=== PATIENT | male | born 1935 | race Caucasian/White ===

== ENCOUNTER 2021-03-09 11:15 | Emergency (ER) | payer OTHER, SELFPAY ==
[2021-03-09 11:29] VITALS: BP 215/65; PULSE 40; RESP 16; TEMP 37.1; O2SAT 97
--- NOTE | 2021-03-09 11:34 | ED.GENADULT ---
HPI - General Adult General Chief complaint: Back Pain/Injury Stated complaint: back pain Time Seen by Provider: 03/09/21 11:35 Source: patient, family (spouse) and RN notes reviewed Mode of arrival: ambulatory (with cane) Limitations: no limitations History of Present Illness HPI narrative: 85-year-old [place] male presents with spouse, both complaining of right lower back pain for the past 12 days. ?Gómez and spouse reported lifting heavy objects on 02/25/21 and now have constant RT lower back pain. ?Tylenol (2 tablets) with little relief. ?Denies falls. ?Radiating pain down the right leg. ?Denies numbness or tingling. ?Denies fever or chills. ?No upper or lower extremity pain or weakness. ?Exacerbating factors consist of certain movements, prolonged standing, and bending. Denies nausea, vomiting, or abdominal pain. ?Tolerating liquids well. Denies problems with urinating or having a bowel movement, LBM this morning per patient and normal. ?No flank pain, hematuria, or dysuria. ?The patient reports he has not been diagnosed with COVID-19. ?The patient reports he received 2 [employer] COVID-19 vaccines. ?The patient reports he is not waiting for the results of a COVID-19 lab test. ?The patient reports he does not have weakness, fatigue, or myalgia. ?The patient reports he does not have a new or worsening cough or shortness of breath. ?The patient reports he does not have any rhinorrhea, congestion, loss of taste, sore throat, and diarrhea. ?Denies recent traveling. Denies concerns for COVID-19 or exposures. ?At this time, the patient is not suspected of having COVID-19. Some parts of this dictation were generated by voice recognition software and may contain typographical and/or grammatical inaccuracies. Related Data Home Medications Medication Instructions Recorded Confirmed aspirin 81 mg tablet,delayed 81 mg PO DAILY 11/03/19 03/09/21 release lisinopril 60 mg PO DAILY 03/09/21 03/09/21 metoprolol succinate 25 mg PO DAILY 03/09/21 03/09/21 Allergies Allergy/AdvReac Type Severity Reaction Status Date / Time No Known Allergies Allergy Verified 03/13/21 06:39 Review of Systems Review of Systems: Narrative: CONSTITUTIONAL: Denies fever, chills, sweats. EYES: Denies visual changes, redness, discharge. ENT: Denies rhinorrhea, congestion, sore throat, otalgia. CARDIOVASCULAR: Denies chest pain, palpitations, edema. RESPIRATORY: Denies dyspnea, wheezing, cough. GASTROINTESTINAL: Denies abdominal pain, nausea, vomiting, diarrhea. GENITOURINARY: Denies dysuria, hematuria, abnormal discharge. SKIN: Denies rash or itching. MUSCULOSKELETAL: Complains of RT lower back pain. Denies joint pain or myalgia. NEUROLOGIC: Denies numbness or focal weakness. PSYCHIATRIC: Denies anxiety or depression. All systems reviewed & are unremarkable except as noted in HPI and below. [facility] Past Medical History Medical History (Updated 03/13/21 @ 06:36 by YOLA Polanco) Amputation of finger of left hand CAD (coronary artery disease) of artery bypass graft [place] (hard of hearing) wears hearing aids HTN (hypertension) Skin lesion Surgical History Surgical History (Updated 03/13/21 @ 06:36 by YOLA Polanco) History of surgical amputation of finger of left hand partial amputation of 2nd (index) finger Hx of CABG Family History Family History Mother Family history of pancreatic cancer Patient's mother is Family history of malignant neoplasm of ovary Father Acute myocardial infarction Sibling Family history of primary malignant neoplasm of liver Family history of malignant neoplasm of kidney Other Family history of malignant neoplasm Social History Social History (Updated 03/13/21 @ 06:37 by YOLA Polanco) Smoking status: Former smoker Tobacco type: cigarettes Second hand tobacco smoke exposure: No Smoking end date: 08/27/85 Alcohol
[2021-03-09 11:48] VITALS: BP 202/84; PULSE 58
[2021-03-09] MEDS: KETOROLAC (*BKC) 60 MG/2 ML VIAL IM (12:01)
[2021-03-09 12:27] VITALS: BP 198/80
== END 2021-03-09 12:27 | disposition home or self-care (01) ==
PROVIDERS: Emergency Provider Nurse Practitioner Family; PCP Emergency Medicine
DX: M54.5 Low back pain (principal); Z87.891 Personal history of nicotine dependence; I25.10 Atherosclerotic heart disease of native coronary artery without angina pectoris; I10 Essential (primary) hypertension; Z89.022 Acquired absence of left finger(s)
CPT/HCPCS: 96372; 99213; G0463; J1885

== ENCOUNTER 2021-03-13 06:30 | Emergency (ER) | payer OTHER, SELFPAY ==
[2021-03-13] VITALS (7 sets, daily range): BP systolic 121–159; BP diastolic 53–66; PULSE 46–66; RESP 15–19; TEMP 36.3; O2SAT 100
--- NOTE | 2021-03-13 07:22 | ED.GIBLEED ---
HPI - GI Bleed General Chief complaint: GI Bleed Stated complaint: Bloody stools Time Seen by Provider: 03/13/21 07:11 History of Present Illness HPI Narrative: Rectal bleeding since this morning. He initially passed 2 large loose stools containing some dark and some bright red blood. Since that time he has passed a small amount of bright red blood. He takes a daily aspirin and has been taking ibuprofen for back pain for the past few days. No pain, nausea, vomiting, dizziness, weakness, SOB, CP. He had a bleeding ulcer about 15 years ago. He reports that his symptoms were very different then. Related Data Home Medications Medication Instructions Recorded Confirmed aspirin 81 mg tablet,delayed 81 mg PO DAILY 11/03/19 03/09/21 release lisinopril 60 mg PO DAILY 03/09/21 03/09/21 metoprolol succinate 25 mg PO DAILY 03/09/21 03/09/21 Allergies Allergy/AdvReac Type Severity Reaction Status Date / Time No Known Allergies Allergy Verified 03/13/21 06:39 Review of Systems Review of Systems: All systems reviewed & are unremarkable except as noted in HPI and below Constitutional: Constitutional: Denies fever(s) ENT: Reports system reviewed and no additional complaints, except as documented Cardiovascular: Cardiovascular: Denies chest pain Respiratory: Respiratory: Denies dyspnea Genitourinary: Genitourinary: Reports no additional male genitourinary complaints Musculoskeletal: Musculoskeletal: Denies back pain Neurologic: Denies confusion, Denies dizziness and Denies weakness Hematologic/Lymphatic: Hematologic/Lymphatic: Denies easy bleeding and Denies easy bruising PMFSH Past Medical History Medical History Amputation of finger of left hand CAD (coronary artery disease) of artery bypass graft [place] (hard of hearing) wears hearing aids HTN (hypertension) Skin lesion Surgical History Surgical History History of surgical amputation of finger of left hand partial amputation of 2nd (index) finger Hx of CABG Family History Family History Mother Family history of pancreatic cancer Patient's mother is Family history of malignant neoplasm of ovary Father Acute myocardial infarction Sibling Family history of primary malignant neoplasm of liver Family history of malignant neoplasm of kidney Other Family history of malignant neoplasm Social History Social History Smoking status: Former smoker Tobacco type: cigarettes Second hand tobacco smoke exposure: No Smoking end date: 08/27/85 Alcohol intake: current Substance use: never Substance use type: does not use Living arrangements: with family Occupation/Education: retired Gender identity (if verbalized by the patient): Male Sexual Orientation (if Verbalized by the Patient): Straight or Heterosexual Exam Const: General: no acute distress Orientation/consciousness: patient oriented x3 HENMT: Head: normal to inspection Neck: Neck: normal visual inspection Resp: Effort & Inspection: normal respiratory effort Auscultation: clear to auscultation bilaterally, no rales, no rhonchi and no wheezes Cardio: Jugular venous distension: no JVD Rate: regular rate Rhythm: regular rhythm Heart sounds: no murmurs GI: Inspection: non-distended GI Palp: Yes Soft to palpation and No Tenderness to palpation present (GI) Skin: General skin exam: normal color Neuro: General: patient oriented x3 and moves all extremities Speech: normal speech Extrem: General: no edema Psych: Appearance: well kempt Affect: normal affect Course Vital Signs Vital signs: Vital Signs Temperature 36.3 C L 03/13/21 06:35 Pulse Rate 66 03/13/21 06:35 Respiratory Rate 19 03/13/21 06:35 Blood Pressure 145/66
[2021-03-13 07:48] LABS: Basophils Percent Auto 0.4 % (0.2-1.2); Eosinophils Percent Auto 0.2 % (0-4.4); Hematocrit 37.1 % (42.0-52.0); Hemoglobin 12.1 g/dL (14.0-18.0); Lymphocytes Percent Auto 23.2 % (18.3-44.2); Mean Corpuscular HGB Conc 32.6 g/dl (32-36); Mean Corpuscular Hemoglobin 31.8 pg (26-34); Mean Corpuscular Volume 97.4 fl (80-100); Neutrophils Absolute Auto 6.5 K/mm3 (1.3-6.7); Neutrophils Percent Auto 65.2 % (45.5-73.1); Platelet Count Result 209 k/mm3 (150-375); Red Blood Count 3.81 M/mm3 (4.6-6.20); Red Cell Distribution Width 14.3 % (11.5-14.5); White Blood Count 9.9 K/mm3 (4.5-10.0)
[2021-03-13 07:57] LABS: Alanine Aminotransferase 21 U/L (4-50); Albumin Level 4.5 g/dL (3.5-5.1); Alkaline Phosphatase 49 U/L (38-126); Anion Gap 7 mmol/L (8-16); Aspartate Amino Transferase 24 U/L (17-59); Bilirubin,Total 1.1 mg/dL (0.2-1.3); Blood Urea Nitrogen 59 mg/dL (9-20); Calcium 9.8 mg/dL (8.4-10.2); Carbon Dioxide 28 mmol/L (22-30); Chloride 108 mmol/L (98-107); Estimated CRCL calculation 56 ml/min; Estimated Glomerular Filt Rate > 60; Glucose 110 mg/dL (65-110); Potassium 4.8 mmol/L (3.4-5.0); Sodium 143 mmol/L (137-145)
[2021-03-13 07:58] LABS: INR 0.9; Prothrombin Time 12.1 Seconds (11.1-14.7)
[2021-03-13] MEDS: PANTOPRAZOLE SODIUM IV 40 MG VIAL IV PUSH (08:01)
[2021-03-13 08:05] LABS: Partial Thromboplastin Time < 20.0 SECONDS (22.3-36.8)
[2021-03-13 11:43] LABS: Hematocrit 33.7 % (42.0-52.0)
== END 2021-03-13 12:58 | disposition home or self-care (01) ==
PROVIDERS: Emergency Medicine; Emergency Provider Emergency Medicine; PCP Emergency Medicine
DX: K92.2 Gastrointestinal hemorrhage, unspecified (principal); I25.810 Atherosclerosis of coronary artery bypass graft(s) without angina pectoris; I10 Essential (primary) hypertension; Z89.022 Acquired absence of left finger(s); Z95.1 Presence of aortocoronary bypass graft; Z87.891 Personal history of nicotine dependence
CPT/HCPCS: 36415; 80053; 85014; 85018; 85025; 85610; 85730; 86850; 86900; 86901; 96374; 99284; C9113

== ENCOUNTER 2021-04-08 01:46 | Day surgery (SDC) | payer OTHER, SELFPAY ==
[2021-03-30 09:51] VITALS: BMI 31.8
--- NOTE | 2021-04-08 07:16 | P.HP_ITS ---
History of Present Illness History of Present Illness Consent: Risks, benefits, and alternatives have been discussed and questions answered. Patient agrees to proceed with procedure. Chief complaint: GI bleed Narrative: Gómez Rose is a 85 year old male because he has had recent black tarry stools after starting ibuprofen last week. He has a prior history of gastrointestinal bleeding about 15 years ago due to an ulcer Review of Systems Review of Systems: All systems reviewed & are unremarkable except as noted in HPI and below PMFSH Past Medical History Medical History Amputation of finger of left hand Black stools CAD (coronary artery disease) of artery bypass graft [place] (hard of hearing) wears hearing aids HTN (hypertension) Obese Skin lesion Surgical History Surgical History History of surgical amputation of finger of left hand partial amputation of 2nd (index) finger Hx of CABG Family History Family History Mother Family history of pancreatic cancer Patient's mother is Family history of malignant neoplasm of ovary Father Acute myocardial infarction Sibling Family history of primary malignant neoplasm of liver Family history of malignant neoplasm of kidney Other Family history of malignant neoplasm Social History Social History Smoking packs per day: 1 Smoking cigarettes per day: 20.0 Smoking status: Former smoker Tobacco type: cigarettes Second hand tobacco smoke exposure: No Smoking end date: 08/27/85 Alcohol intake: current Drinks per week: 10 Substance use: never Substance use type: does not use Living arrangements: with family Gender identity (if verbalized by the patient): Male Spiritual care concerns: No Meds Home Medications and Allergies Home Medications Medication Instructions Recorded Confirmed Type aspirin 81 mg tablet,delayed 81 mg PO DAILY 11/03/19 03/30/21 History release atorvastatin 80 mg tablet 80 mg PO DAILY #90 tablet 01/14/21 03/30/21 Rx lisinopril 60 mg PO BID 03/09/21 03/30/21 History metoprolol succinate 25 mg PO DAILY 03/09/21 03/30/21 History pantoprazole [Protonix] 40 mg PO BID #60 tablet 03/13/21 03/30/21 Rx Allergies Allergy/AdvReac Type Severity Reaction Status Date / Time No Known Allergies Allergy Verified 04/08/21 10:36 Exam Resp: Auscultation: clear to auscultation bilaterally Cardio: Rate: regular rate Rhythm: regular rhythm GI: GI Palp: Yes Soft to palpation and No Tenderness to palpation present (GI) Assessment and Plan Assessment and plan (1) Melena: Code(s): K92.1 - Melena Status: Acute Assessment and Plan: EGD with possible biopsy or dilatation or cautery.
[2021-04-08 10:38] VITALS: BP 185/53; PULSE 45; RESP 16; TEMP 35.9; O2SAT 96
--- NOTE | 2021-04-08 10:44 | SUR.PREOP ---
DR RAIN NOTIFIED OF HR OF 44, NO NEW ORDERS
--- NOTE | 2021-04-08 10:47 | P.PNAN_ITS ---
Anes - Initial Pre Proc Eval Procedure: Operation Date: 04/08/21 11:30 Proposed Procedures p Esophagogastroduodenoscopy - Edd Beard MD Date/Time: 04/08/21 10:47 Surgeon: Edd Beard MD Pre Op Diagnosis: GI bleed Patient Data Age: 85 Gender: M Height: 1.75 m Weight: 96.3 kg Last Vital Signs Temp 35.9 C L 04/08/21 10:38 Pulse 45 L 04/08/21 10:38 Resp 16 04/08/21 10:38 BP 185/53 H 04/08/21 10:38 Pulse Ox 96 04/08/21 10:38 Allergies Allergy/AdvReac Type Severity Reaction Status Date / Time No Known Allergies Allergy Verified 04/08/21 10:36 Home Medications Medication Instructions Recorded Confirmed Type aspirin 81 mg tablet,delayed 81 mg PO DAILY 11/03/19 03/30/21 History release atorvastatin 80 mg tablet 80 mg PO DAILY #90 tablet 01/14/21 03/30/21 Rx lisinopril 60 mg PO BID 03/09/21 03/30/21 History metoprolol succinate 25 mg PO DAILY 03/09/21 03/30/21 History pantoprazole [Protonix] 40 mg PO BID #60 tablet 03/13/21 03/30/21 Rx Patient hx anesthesia problems: none Family hx anesthesia problems: none PMFSH Past Medical History Medical History Amputation of finger of left hand Black stools CAD (coronary artery disease) of artery bypass graft [place] (hard of hearing) wears hearing aids HTN (hypertension) Obese Skin lesion Surgical History Surgical History History of surgical amputation of finger of left hand partial amputation of 2nd (index) finger Hx of CABG Family History Family History Mother Family history of pancreatic cancer Patient's mother is Family history of malignant neoplasm of ovary Father Acute myocardial infarction Sibling Family history of primary malignant neoplasm of liver Family history of malignant neoplasm of kidney Other Family history of malignant neoplasm Social History Social History Smoking packs per day: 1 Smoking cigarettes per day: 20.0 Smoking status: Former smoker Tobacco type: cigarettes Second hand tobacco smoke exposure: No Smoking end date: 08/27/85 Alcohol intake: current Drinks per week: 10 Substance use: never Substance use type: does not use Living arrangements: with family Gender identity (if verbalized by the patient): Male Spiritual care concerns: No Anes - Eval Final PreProcedure Day of Procedure 04/08/21 10:47 Patient weight: obese Heart: regular rate and rhythm Lungs: decreased breath sounds Airway: Mallampati scale class II Neurological: alert and oriented Last oral intake: >/= 8 hours ASA classification: III Emergent: no Anesthetic plan: proceed Anesthesia type and monitoring: general GIVS and standard monitoring Informed Consent: The patient's anesthetic plan and its attendant risks and benefits were discussed with the patient/family/POA. Questions were solicited and answers provided to the satisfaction of the patient/family/POA.
[2021-04-08] MEDS: LACTATED RINGERS 1,000 ML 150 ML IV CONT (11:03)
[2021-04-08] MEDS: SIMETHICONE ORAL SUSPENSION 20 MG/0.3 ML 30 ML BOTTLE 0.6 ML IRRIGATION (11:39)
[2021-04-08 11:43] VITALS: BP 137/57; PULSE 46; RESP 15; O2SAT 98
[2021-04-08 11:53] VITALS: BP 162/68; PULSE 45; RESP 14; O2SAT 95
[2021-04-08 12:03] VITALS: BP 180/71; PULSE 48; RESP 15; O2SAT 100
== END 2021-04-08 12:25 | disposition home or self-care (01) ==
PROVIDERS: PCP Emergency Medicine; Visit Provider Internal Medicine Gastroenterology
PROC: 0DJ08ZZ Inspection of Upper Intestinal Tract, Via Natural or Artificial Opening Endoscopic (ICD-10-PCS; CPT 43235; principal; 2021-04-08 11:30)
DX: K92.1 Melena (principal); K29.70 Gastritis, unspecified, without bleeding; I25.810 Atherosclerosis of coronary artery bypass graft(s) without angina pectoris; I10 Essential (primary) hypertension; E66.9 Obesity, unspecified; H91.90 Unspecified hearing loss, unspecified ear; Z89.022 Acquired absence of left finger(s); Z87.891 Personal history of nicotine dependence
CPT/HCPCS: 43235; J7120

== ENCOUNTER 2021-05-18 10:15 | Outpatient (RCR) | payer OTHER, SELFPAY ==
--- NOTE | 2021-04-27 09:50 | PTOPEVAL ---
PHYSICAL THERAPY EVALUATION AND PLAN OF CARE Thank you for referring G[facility]mez Rose to [facility].? The patient is scheduled to be seen for therapy?1x/week for 5 weeks. Please review, sign, date and return this plan of care MANPREET. I agree with and certify that the following plan of care is medically necessary. Referring Physician Date Attending Provider: Zeferino Ortiz MD Evaluation Outpatient Past Medical History Neurological History Hx Neurological Disorders No Significant History Cardiovascular History Hx Coronary Artery Bypass Graft Yes: CABG x 3 Hx Coronary Artery Disease Yes Hx Hypercholesterolemia Yes Hx Hypertension Yes Respiratory History Hx Respiratory Disorders No Significant History Gastrointestinal History Hx Gastrointestinal Bleed Yes: 03/13/2021 Hx Hemorrhoids Yes Hx Polyps Yes: colon polyps Hx Ulcer Yes: hx bleeding ulcer Genitourinary History Hx Genitourinary Disorders No Significant History Musculoskeletal History Hx Arthritis Yes: back Hx Back Pain Yes Hx Fractures Yes: foot fracture Hx Orthopedic Surgery Yes: bilateral knee arthroscopies Hematological History Hx Anemia Yes Hx Blood Transfusions Yes Endocrine History Hx Endocrine Disorders No Significant History HEENT History Hx Other HEENT Disorders Yes: [place] Integumentary History Hx Excision Skin Lesion Yes: LT HAND SKIN CANCER Hx Shingles Yes Reproductive History Hx Reproductive Disorders No Significant History Psychosocial History Hx Psychiatric Disorders No Significant History Pain History History of Any Previous or Ongoing No Significant History Instance of Pain Anesthesia History Hx Anesthesia Reactions No Significant History Diagnosis right hip pain Onset 6 weeks Subjective Information Eloy is present for Query Text:As Reported By Patient/ evaluation to help because Family Gómez's hearing aides broke. Pain kind of starts in the low back and goes into both hips, right side worse. Did have some symptoms go down the legs . States today that it bothers him most when he gets up in the morning. Started using a cane when this pain started - helped him to feel more steady . Both standing still and walking increase pain, but
--- NOTE | 2021-06-01 16:48 | PCPTNOTE ---
Patient called & cancelled scheduled appointment on 06/01
--- NOTE | 2021-06-14 14:36 | PCPTNOTE ---
PHYSICAL THERAPY DISCHARGE NOTE Attending Provider: Zeferino Ortiz MD Patient:Gómez Rose Date of :1935 Patient has not returned for any further treatments since 05/18/2021, therefore will be discharged at this time. Patient?s initial visit was on 04/27/2021. He called and cancelled his last two appointments because he was getting an MRI and was going to reach out if he needed further therapy. We have not heard from him. Thank you for referring Gómez to [facility]. Please review, sign, date and return this discharge summary MANPREET. I have been updated about the patient's current status and I agree with discharge from the above service at this time. Referring Physician Date
== END 2021-06-15 08:51 | disposition home or self-care (01) ==
LOC: ANHPT 10:15
PROVIDERS: PCP Emergency Medicine; Visit Provider Orthopaedic Surgery
DX: M25.551 Pain in right hip (principal)
CPT/HCPCS: 97110; 97140; 97162

== ENCOUNTER 2021-06-03 14:35 | Outpatient (CLI) | payer OTHER, SELFPAY ==
--- NOTE | ~2021-06-03 | MR_ITS ---
EXAMINATION: MR lumbar spine wo con DATE: 06/03/2021 15:32 INDICATION: Low back pain. TECHNIQUE: Magnetic resonance imaging (MRI) of the lumbar spine was performed without intravenous con trast. Sequences included sagittal T2-weighted FSE, sagittal STIR FSE, sagittal T2-weighted FS FSE, s agittal T1-weighted FSE, and axial T2-weighted FSE. COMPARISON: None FINDINGS: Bone alignment is normal. Vertebral body heights and intervertebral disc heights are normal . The distal spinal cord signal intensity is normal. The conus medullaris is at T12. The following di sc levels are specifically discussed: L1-L2: The disc does not extend beyond the endplate margin. There is mild bilateral facet joint osteo arthritis. There is no neural foraminal stenosis. There is no central canal stenosis. L2-L3: The disc is bulging. There is mild bilateral facet joint osteoarthritis. There is moderate mica ateral neural foraminal stenosis. There is mild central canal stenosis. L3-L4: The disc is bulging. There is moderate bilateral facet joint osteoarthritis. There is moderate bilateral neural foraminal stenosis. There is mild central canal stenosis. L4-L5: The disc is bulging and has an annular fissure. There is severe bilateral facet joint osteoart hritis. There is an 8 mm synovial cyst from right facet joint. There is moderate bilateral neural for aminal stenosis. There is severe central canal stenosis. L5-S1: The disc is bulging and has an annular fissure. There is mild bilateral facet joint osteoarthr itis. There is mild bilateral neural foraminal stenosis. There is mild central canal stenosis. IMPRESSION: 1. Severe central canal stenosis at L4-L5. Otherwise moderate lumbar spondylosis. Reviewed, dictated and finalized at location A. IMPRESSION: 1. Severe central canal stenosis at L4-L5. Otherwise moderate lumbar spondylosi s.
== END 2021-06-03 14:36 | disposition home or self-care (01) ==
PROVIDERS: PCP Emergency Medicine; Visit Provider Orthopaedic Surgery
DX: M54.50 Low back pain, unspecified (principal); M48.061 Spinal stenosis, lumbar region without neurogenic claudication; M47.816 Spondylosis without myelopathy or radiculopathy, lumbar region
CPT/HCPCS: 72148

== ENCOUNTER 2022-08-08 14:38 | Outpatient (CLI) | payer OTHER, SELFPAY ==
--- NOTE | ~2022-08-08 | XR_ITS ---
Lumbosacral Spine: AP and lateral views Clinical History: Lumbar radiculopathy The normal lordotic curve is maintained. The vertebral bodies and posterior elements are intact. Th e intervertebral disc spaces are preserved. Facet joint degenerative change present at L4-L5 and L5-S 1. The sacroiliac joints are normally outlined. Impression: Facet joint degenerative change at the lower lumbar spine, as detailed above. Reviewed, dictated and finalized at location [] [employer] OPERATOR HEAD Impression: Facet joint degenerative change at the lower lumbar spine, as detailed above.
== END 2022-08-08 14:39 | disposition home or self-care (01) ==
PROVIDERS: PCP Emergency Medicine
DX: M54.17 Radiculopathy, lumbosacral region (principal)
CPT/HCPCS: 72100

== ENCOUNTER 2022-10-10 09:18 | Outpatient (CLI) | payer OTHER, SELFPAY ==
--- NOTE | 2022-10-10 09:45 | ECHO_ITS ---
Patient Info Name: Gmóez Rose Age: 87 years : 1935 Gender: Male Ht: 68 in Wt: 200 lbs BSA: 2.11 m2 HR: 50 bpm BP: 152 / 73 mmHg Heart Rhythm: Sinus Rhythm Technical Quality: Fair Exam Date: 10/10/2022 9:48 AM Exam Location: [facility] Patient Status: Outpatient Admit Date: 10/10/2022 Staff Ordering Physician: Polo Vasquez MD Actuarial Science Professor: Nedra Canchola RDCS Attending Provider: Polo Vasquez MD Referring Physician: Pedro ROBERT; Exam Type: CA echo doppler color flow Study Info Indications R01.1 - Cardiac murmur, unspecified Complete two-dimensional, color flow and Doppler transthoracic echocardiogram is performed. Summary 1. Complete two-dimensional, color flow and Doppler transthoracic echocardiogram is performed. 2. Left ventricular chamber dimension is normal. 3. Left ventricular systolic function is normal, estimated at 50-55%. 4. There is mildly increased left ventricular wall thickness. 5. The left ventricular diastolic function is grade I diastolic dysfunction. 6. Global longitudinal strain is abnormal at -14 %. 7. Right ventricular chamber dimension is normal. 8. Right ventricular systolic function is normal. 9. There is mild aortic valve calcification. 10. The mitral valve annulus is mildly calcified. 11. There is mild mitral valve regurgitation. 12. There is mild to moderate tricuspid valve regurgitation. Left Ventricle Left ventricular chamber dimension is normal. Left ventricular systolic function is normal, estimated at 50-55%. There is mildly increased left ventricular wall thickness. The left ventricular diastolic function is grade I diastolic dysfunction. Global longitudinal strain is abnormal at -14 %. Right Ventricle Right ventricular chamber dimension is normal. Right ventricular systolic function is normal. Left Atria Left atrial chamber dimension is normal. Right Atria Right atrial chamber dimension is normal. Atrial Septum Intact interatrial septum visualized by color flow imaging. Aortic Valve The aortic valve is trileaflet. There is no aortic valve stenosis. There is no aortic valve regurgitation. There is mild aortic valve calcification. Pulmonic Valve The pulmonic valve is normal. There is no pulmonic regurgitation. Mitral Valve The mitral valve has normal leaflets. There is no mitral valve stenosis. There is mild mitral valve regurgitation. The mitral valve annulus is mildly calcified. Tricuspid Valve The tricuspid valve leaflets are normal. There is no significant tricuspid valve stenosis. There is mild to moderate tricuspid valve regurgitation. Pericardium/Pleural The pericardium appears normal. Inferior Vena Cava Normal inferior vena cava with >50% collapse upon inspiration consistent with normal right atrial pressure, 3 mmHg. Aorta The aortic root size at the sinus of Valsalva is normal. Left Ventricular Outflow Tract Name Value Normal LVOT 2D LVOT Diameter 1.9 cm LVOT Doppler LVOT Peak Gradient 4 mmHg LVOT Mean Gradient 3 mmHg
== END 2022-10-10 09:19 | disposition home or self-care (01) ==
PROVIDERS: PCP Emergency Medicine; Visit Provider Emergency Medicine
DX: R01.1 Cardiac murmur, unspecified (principal); R60.9 Edema, unspecified; I36.1 Nonrheumatic tricuspid (valve) insufficiency; I34.0 Nonrheumatic mitral (valve) insufficiency; I35.1 Nonrheumatic aortic (valve) insufficiency
CPT/HCPCS: 93306

== ENCOUNTER 2023-06-20 01:20 | Emergency (ER) | payer OTHER, SELFPAY ==
--- NOTE | ~2023-06-20 | XR_ITS ---
Clinical Indication: Chest pain PA and lateral views of the chest: Comparison: 01/24/2019 Findings: The lungs are clear, without evidence of focal consolidation or pleural effusion. Cardiome diastinal silhouette is stable, status post probable CABG. Bones and soft tissues are unremarkable. Impression: Clear lungs. Reviewed, dictated and finalized at location . Impression: Clear lungs.
--- NOTE | ~2023-06-20 | CT_ITS ---
Clinical Indication: Chest pain CT Scan of the Chest with Contrast: Technique: Contiguous sections were acquired throughout the chest after intravenous administration of 100 cc of Omnipaque 350. Dose reduction technique was used on this scan by utilizing automated expos ure control and iterative reconstruction technique. The dose-length product (DLP) was 745.79 mGy-cm. Findings: There is no evidence of any significant mediastinal, hilar or axillary lymphadenopathy. There is no f illing defect in the pulmonary arterial tree to suggest pulmonary embolus. There is no evidence of ao rtic dissection or aneurysm. There is no evidence of pleural or pericardial effusion. The lungs are clear, aside from calcified left lower lobe granulomas. Images through the upper abdomen reveal no abnormalities. There is DISH of the thoracic spine. Impression: No evidence of pulmonary embolus, aortic dissection, or aortic aneurysm. Calcified left lower lobe granulomas, otherwise clear lungs. Reviewed, dictated and finalized at [facility]. Impression: No evidence of pulmonary embolus, aortic dissection, or aortic aneurysm. Calcified left lower lobe granulomas, otherwise clear lungs.
[2023-06-20 01:28] VITALS: PULSE 57
[2023-06-20 01:30] VITALS: BP 150/67; PULSE 51; RESP 15; O2SAT 97
--- NOTE | 2023-06-20 01:33 | ECG_ITS ---
Measurements Intervals [place] Rate: 64 P: -4 OR: 160 QRS: -7 QRSD: 102 T: 76 QT: 447 QTc: 464 Interpretive Statements SINUS RHYTHM WITH OCCASIONAL VENTRICULAR PREMATURE COMPLEXES NONSPECIFIC ST & T-WAVE ABNORMALITY COMPARED TO ECG 01/24/2019 09:47:36 SINUS RHYTHM NOW PRESENT T-WAVE ABNORMALITY NOW PRESENT Electronically Signed On 06-20-2023 11:19:31 CDT by Vivian Carvajal M.D.
[2023-06-20 01:52] LABS: Basophils Percent Auto 0.4 % (0.2-1.2); Eosinophils Absolute Auto 0.2 K/mm3 (0-0.3); Eosinophils Percent Auto 2.2 % (0-4.4); Hematocrit 42.8 % (42.0-52.0); Immature Granulocyte Absolute 0.06 K/mm3 (0.00-0.031); Immature Granulocyte Percent A 0.6 % (0-0.5); Lymphocytes Absolute Auto 2.85 K/mm3 (0.9-3.2); Mean Corpuscular HGB Conc 32.7 g/dl (32-36); Mean Corpuscular Hemoglobin 32.1 pg (26-34); Mean Corpuscular Volume 98.2 fl (80-100); Mean Platelet Volume 9.8 fl (7.4-10.4); Monocytes Absolute Auto 0.7 K/mm3 (0.1-0.6); Monocytes Percent Auto 6.8 % (2.6-8.5); Neutrophils Absolute Auto 6.7 K/mm3 (1.3-6.7); Platelet Count Result 204 k/mm3 (150-375); Red Blood Count 4.36 M/mm3 (4.6-6.20); Red Cell Distribution Width 13.2 % (11.5-14.5); White Blood Count 10.6 K/mm3 (4.5-10.0)
[2023-06-20 02:07] LABS: Alanine Aminotransferase 25 U/L (6-50); Albumin Level 4.3 g/dL (3.5-5.1); Alkaline Phosphatase 90 U/L (38-126); Anion Gap 7 mmol/L (8-16); Aspartate Amino Transferase 34 U/L (17-59); Bilirubin,Total 1.1 mg/dL (0.2-1.3); Blood Urea Nitrogen 25 mg/dL (9-20); Calcium 9.3 mg/dL (8.4-10.2); Carbon Dioxide 29 mmol/L (22-30); Chloride 101 mmol/L (98-107); Estimated CRCL calculation 42 ml/min; Estimated Glomerular Filt Rate > 60; Glucose 125 mg/dL (65-110); Lipase 207 U/L (23-300); Potassium 3.8 mmol/L (3.4-5.0); Sodium 137 mmol/L (137-145)
[2023-06-20 02:16] LABS: INR 0.9; Prothrombin Time 12.3 Seconds (11.1-14.7)
[2023-06-20 02:17] LABS: Partial Thromboplastin Time 23.9 SECONDS (22.3-36.8)
[2023-06-20 02:18] LABS: Troponin I < 0.012 ng/mL (0.000-0.034)
[2023-06-20 02:42] VITALS: BP 164/61; PULSE 62; RESP 18; O2SAT 95
[2023-06-20 03:06] LABS: D Dimer 0.67 ug/mL (<0.48)
[2023-06-20 03:08] LABS: NT Pro B Type Natriuretic Pept 273 pg/mL (19.9-100)
--- NOTE | 2023-06-20 03:13 | ED.GENADULT ---
HPI - General Adult General Chief complaint: Chest Pain Stated complaint: chest pain Time Seen by Provider: 06/20/23 01:35 History of Present Illness HPI narrative: Patient is a 88-year-old gentleman who presents the emergency department with chief complaint of chest pain. Patient reports this evening started having pain in the right side of his chest patient reports pain is worse with inspiration and improved with rest. Related Data Home Medications Medication Instructions Recorded Confirmed aspirin 81 mg tablet,delayed 81 mg PO DAILY 11/03/19 12/21/21 release Allergies Allergy/AdvReac Type Severity Reaction Status Date / Time No Known Allergies Allergy Verified 12/27/22 09:13 Review of Systems Review of Systems: A 10 system review of systems was completed on the patient and is negative except for what is stated in the HPI. Nursing and ancillary documentation was reviewed. [facility], [facility] Past Medical History Medical History Amputation of finger of left hand Black stools CAD (coronary artery disease) of artery bypass graft [place] (hard of hearing) wears hearing aids HTN (hypertension) Obese Skin lesion Surgical History Surgical History History of surgical amputation of finger of left hand partial amputation of 2nd (index) finger Hx of CABG Family History Family History Mother Family history of pancreatic cancer Patient's mother is Family history of malignant neoplasm of ovary Father Acute myocardial infarction Sibling Family history of primary malignant neoplasm of liver Family history of malignant neoplasm of kidney Other Family history of malignant neoplasm Social History Social History Smoking packs per day: 1 Smoking cigarettes per day: 20.0 Smoking status: Former smoker Tobacco type: cigarettes Second hand tobacco smoke exposure: No Smoking end date: 08/27/85 Alcohol intake: current Drinks per week: 10 Substance use: never Substance use type: does not use Lack of Transportation: No Lack of Food: Never True Current Housing: Decline to Answer Concerned About Future Housing: No Difficulty Paying Gas/Electric Bills: No Difficulty Paying for Meds: No Currently Unemployed: No Education: High School Diploma/GED Difficulty w/ Childcare or Family Care: No Living arrangements: with family Occupation/Education: retired Gender identity (if verbalized by the patient): Male Sexual Orientation (if Verbalized by the Patient): Straight or Heterosexual Spiritual care concerns: No Exam Narrative: GENERAL: Well-appearing, well-nourished, and in no acute distress. HEAD: Normocephalic, atraumatic. EYES: PERRLA and EOMI. ENT: Nares clear, no rhinorrhea or epistaxis. Mucous membranes moist. NECK: Supple. CHEST: Clear to auscultation. No respiratory distress. Chest wall is tender to palpation of the right chest HEART: Regular rate and rhythm. No murmur heard. Normal peripheral pulses. ABDOMEN: Soft, nontender, nondistended, normal active bowel sounds. EXTREMITIES: Normal range of motion. No edema. SKIN: Warm, dry, no rash. NEURO: No focal deficits. Alert and oriented x3. PSYCH: Normal mood and affect. Course Vital Signs Vital signs: Vital Signs Pulse Rate 57 L 06/20/23 01:28 Pulse Rate 54 L 06/20/23 04:35 Respiratory Rate 18 06/20/23 02:42 Blood Pressure 151/69 H 06/20/23 04:35 Pulse Oximetry 98 06/20/23 04:35 Medical Decision Making [facility] Narrative Medical decision making narrative: Differential diagnosis includes ACS, pulmonary embolism, CHF Laboratory studies were obtained on the patient which showed a negative troponin for both 0-hour and 3-hour D
[2023-06-20 04:35] VITALS: BP 151/69; PULSE 54; O2SAT 98
[2023-06-20 05:15] LABS: Troponin I < 0.012 ng/mL (0.000-0.034)
[2023-06-20 06:25] VITALS: BP 130/74; PULSE 90; RESP 12; O2SAT 99
== END 2023-06-20 06:25 | disposition home or self-care (01) ==
PROVIDERS: Emergency Provider Emergency Medicine; PCP Emergency Medicine
DX: R07.89 Other chest pain (principal); I25.10 Atherosclerotic heart disease of native coronary artery without angina pectoris; I10 Essential (primary) hypertension; Z95.1 Presence of aortocoronary bypass graft; Z89.022 Acquired absence of left finger(s); Z87.891 Personal history of nicotine dependence; I49.3 Ventricular premature depolarization; R94.31 Abnormal electrocardiogram [ECG] [EKG]
CPT/HCPCS: 36415; 71046; 71275; 80053; 83690; 83880; 84484; 85025; 85380; 85610; 85730; 93005; 99284; Q9967

== ENCOUNTER 2023-10-16 07:21 | Outpatient (CLI) | payer OTHER, SELFPAY ==
--- NOTE | ~2023-10-16 | CT_ITS ---
EXAMINATION: CT abdomen pelvis wo/w con DATE: 10/16/2023 08:08 INDICATION: Gross hematuria TECHNIQUE: Computed tomography (CT) of the abdomen and pelvis was performed without intravenous contr ast. CT of the abdomen and pelvis was then performed with a total of 130 mL Omnipaque 350 intravenous contrast using a double-bolus technique for simultaneous opacification of the renal parenchyma and r enal collecting system. The dose-length product (DLP) was 2002.97 mGy-cm. Automated exposure control and iterative reconstruction technique were employed. COMPARISON: None FINDINGS: Minimal dependent atelectasis is present in the lung bases. The heart size is normal. Punct ate calcifications in an otherwise normal spleen likely represent healed granulomatous disease. The l iver, pancreas, gallbladder, and adrenal glands are normal. The kidneys are unremarkable. No stones a re identified in the kidneys, ureters, or bladder. No hydronephrosis or hydroureter. There is right p osterolateral bladder wall thickening. No suspicious renal lesion is identified. There is a 1.4 cm le ft obturator lymph node. No free intraperitoneal gas or evidence of bowel obstruction. The appendix i s normal. There is calcified atherosclerosis of the aorta and many of the other arteries. There is mi ld lumbar spondylosis. IMPRESSION: 1. Right posterolateral bladder wall thickening which could reflect urothelial lesion. Direct visuali zation is recommended. 2. Enlarged left obturator lymph node of unclear etiology, reactive versus metastatic disease. Reviewed, dictated and finalized at location [facility] IMPRESSION: 1. Right posterolateral bladder wall thickening which could reflect urothelial lesion. Direct visualization is recommended. 2. Enlarged left obturator lymph node of unclear etiology, reactive versus meta static disease.
[2023-10-16 07:47] LABS: Estimated Glomerular Filt Rate > 60
== END 2023-10-16 07:22 | disposition home or self-care (01) ==
LOC: ANHIMG 07:26
PROVIDERS: PCP Emergency Medicine; Visit Provider Physician Assistant
DX: R31.0 Gross hematuria (principal)
CPT/HCPCS: 74178; Q9967

== ENCOUNTER 2023-10-20 08:47 | Observation (INO) | payer OTHER, SELFPAY ==
[2023-10-20] VITALS (9 sets, daily range): BP systolic 123–188; BP diastolic 56–104; PULSE 53–77; RESP 16–21; TEMP 35.9–36.8; O2SAT 93–100; BMI 31.8
--- NOTE | 2023-10-20 10:21 | ED.MALEGU ---
HPI - Male Genitourinary General Chief complaint: Urogenital-Male <Augusta Lott PA-C - Last Filed: 10/20/23 13:41> Stated complaint: unable to urinate <Augusta Lott PA-C - Last Filed: 10/20/23 13:41> Time Seen by Provider: 10/20/23 09:36 <Augusta Lott PA-C - Last Filed: 10/20/23 13:41> Source: patient and family <Augusta Lott PA-C - Last Filed: 10/20/23 13:41> Mode of arrival: ambulatory <BRANDIN Mccall Last Filed: 10/20/23 13:41> Limitations: no limitations <Augusta Lott PA-C - Last Filed: 10/20/23 13:41> History of Present Illness HPI Narrative: This is an 88-year-old male that presents to the emergency department for inability to urinate. Reports yesterday he had a cystoscopy with Dr. Leon for urinary frequency. He urinated last night around 9:00 p.m., which was bloody. He has not been able to urinate since. Denies fever, or vomiting. <BRANDIN Mccall Last Filed: 10/20/23 13:41> Related Data Home medications: Home Medications Medication Instructions Recorded Confirmed aspirin 81 mg tablet,delayed 81 mg PO DAILY 11/03/19 10/20/23 release amlodipine 5 mg tablet 5 mg PO DAILY 10/20/23 10/20/23 atorvastatin 80 mg tablet 80 mg PO DAILY 10/20/23 10/20/23 hydralazine 25 mg tablet 25 mg PO TID 10/20/23 10/20/23 lisinopril 30 mg tablet 30 mg PO BID 10/20/23 10/20/23 niacin 500 mg tablet 500 mg PO DAILY 10/20/23 10/20/23 omega 2-mmc-dan-fish oil 900 1 cap PO DAILY 10/20/23 10/20/23 mg-1,400 mg capsule,delayed release <BRANDIN Mccall Last Filed: 10/20/23 13:41> Allergies/Adverse reactions: Allergies Allergy/AdvReac Type Severity Reaction Status Date / Time No Known Allergies Allergy Verified 09/24/23 10:23 <Augusta Lott PA-C - Last Filed: 10/20/23 13:41> Review of Systems Review of Systems: CONSTITUTIONAL: Denies fever GASTROINTESTINAL: Denies abdominal pain, nausea, vomiting GENITOURINARY: Reports hematuria. <Augusta Lott PA-C - Last Filed: 10/20/23 13:41> All systems reviewed & are unremarkable except as noted in HPI and below <Augusta Lott PA-C - Last Filed: 10/20/23 13:41> [facility] Past Medical History Medical History: Medical History (Updated 10/20/23 @ 14:39 by Masha Oviedo PA-C) Arthritis Benign prostatic hyperplasia Coronary artery disease Hearing loss Hemorrhoids Hyperlipidemia Hypertension Peptic ulcer Shingles <Augusta Lott PA-C - Last Filed: 10/20/23 13:41> Surgical History Surgical History: Surgical History (Updated 10/20/23 @ 14:37 by Masha Oviedo PA-C) History of arthroscopy of both knees History of colonoscopy with polypectomy 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 History of vasectomy <Augusta Lott PA-C - Last Filed: 10/20/23 13:41> Family History Family History: Family History Mother Family history of pancreatic cancer Patient's mother is Family history of malignant neoplasm of ovary Father Acute myocardial infarction Sibling Family history of primary malignant neoplasm of liver Family history of malignant neoplasm of kidney Other Family history of malignant neoplasm <Augusta Lott PA-C - Last Filed: 10/20/23 13:41> Social History Social History: Social History (Updated 10/20/23 @ 14:38 by Masha Oviedo PA-C) Social History: Surrogate medical decision maker: Elly Rose, spouse. Code status: Full code. Smoking packs per day: 1 Smoking cigarettes per day: 20.0 Smoking status: Former smoker Tobacco type: cigarettes Second hand tobacco smoke exposure: No Smoking end date: 08/27/85 Alcohol intake: current Drinks per week: 10 Substance use: never Substance use type: does not use Do You Feel Safe in your Ho
[2023-10-20 10:37] LABS: Appearance Urine Cloudy (Clear); Bacteria Urine None Seen /hpf; Bilirubin Urine Negative (Negative); Blood Urine 3+ (Negative); Color Urine Dark Yellow (Yellow); Glucose Urine UA Negative (Negative); Ketones Urine Trace mg/dL (Negative); Leukocyte Esterase Ur Trace LEU/UL (Negative); Need Manual Microscopic Reviewed; Nitrate Urine Negative (Negative); Non Pathogenic Casts 0-2; Protein Urine 3+ mg/dL (Negative); Specific Grav Ur 1.023 (1.001-1.035); Squamous Epithelial Cell Urine Few /hpf (Few); WBC Urine 51-100 /hpf; pH Urine 5.5 (5.0-9.0)
[2023-10-20 10:38] LABS: Add Urine Microscopic? YES; RBC Urine >100 /hpf (0-2)
[2023-10-20 11:22] LABS: Basophils Percent Auto 0.4 % (0.2-1.2); Eosinophils Absolute Auto 0.1 K/mm3 (0-0.3); Eosinophils Percent Auto 1.1 % (0-4.4); Hematocrit 42.3 % (42.0-52.0); Hemoglobin 13.8 g/dL (14.0-18.0); Immature Granulocyte Absolute 0.01 K/mm3 (0.00-0.031); Immature Granulocyte Percent A 0.1 % (0-0.5); Lymphocytes Absolute Auto 1.22 K/mm3 (0.9-3.2); Lymphocytes Percent Auto 14.5 % (18.3-44.2); Mean Corpuscular HGB Conc 32.6 g/dl (32-36); Mean Corpuscular Hemoglobin 31.4 pg (26-34); Mean Corpuscular Volume 96.4 fl (80-100); Mean Platelet Volume 9.8 fl (7.4-10.4); Monocytes Absolute Auto 0.6 K/mm3 (0.1-0.6); Monocytes Percent Auto 7.5 % (2.6-8.5); Neutrophils Absolute Auto 6.4 K/mm3 (1.3-6.7); Neutrophils Percent Auto 76.4 % (45.5-73.1); Platelet Count Result 178 k/mm3 (150-375); Red Blood Count 4.39 M/mm3 (4.6-6.20); Red Cell Distribution Width 13.1 % (11.5-14.5); White Blood Count 8.4 K/mm3 (4.5-10.0)
[2023-10-20 11:31] LABS: Anion Gap 5 mmol/L (8-16); Blood Urea Nitrogen 26 mg/dL (9-20); Calcium 9.1 mg/dL (8.4-10.2); Carbon Dioxide 27 mmol/L (22-30); Chloride 103 mmol/L (98-107); Estimated CRCL calculation 52 ml/min; Estimated Glomerular Filt Rate > 60; Glucose 110 mg/dL (65-110); Potassium 4.5 mmol/L (3.4-5.0); Sodium 135 mmol/L (137-145)
[2023-10-20 11:32] LABS: INR 0.9; Partial Thromboplastin Time 25.8 SECONDS (22.3-36.8); Prothrombin Time 12.9 Seconds (11.1-14.7)
--- NOTE | 2023-10-20 14:31 | PM.IMHP ---
H&P: HPI History of Present Illness Date/Time: 10/20/23 14:30 Chief Complaint: Unable to urinate. Narrative: This is an 88-year-old male with benign prostatic hyperplasia, hypertension, and coronary artery disease who presented to the emergency department via private vehicle for evaluation of difficulties urinating. The patient provides the following history. He had a cystoscopy yesterday per Dr. Leon and last urinated at about 21:00 without difficulties although the urine was a bit bloody. He has not been able to urinate since that time. Bladder scan today revealed greater than 500 mL of urine in the bladder and grossly bloody urine was noted upon insertion of a Lawton catheter. He has since been started on continuous bladder irrigation and is being admitted in this setting. Hemoglobin is stable at 13.8. Kidney function is at baseline. Vital signs have been stable. He has no complaints and denies fever, chills, sweats, chest pain, shortness a breath, nausea, vomiting, back pain, and abdominal pain. Review of Systems Review of Systems: Twelve systems were reviewed and are negative except for as per HPI. [facility] Past Medical History Medical History Arthritis Benign prostatic hyperplasia Coronary artery disease Hearing loss Hemorrhoids Hyperlipidemia Hypertension Peptic ulcer Shingles Surgical History Surgical History History of arthroscopy of both knees History of colonoscopy with polypectomy 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 History of vasectomy Family History Family History Mother Family history of pancreatic cancer Patient's mother is Family history of malignant neoplasm of ovary Father Acute myocardial infarction Sibling Family history of primary malignant neoplasm of liver Family history of malignant neoplasm of kidney Other Family history of malignant neoplasm Social History Social History Social History: Surrogate medical decision maker: Elly Rose, spouse. Code status: Full code. Smoking packs per day: 1 Smoking cigarettes per day: 20.0 Smoking status: Former smoker Tobacco type: cigarettes Second hand tobacco smoke exposure: No Smoking end date: 08/27/85 Alcohol intake: current Drinks per week: 10 Substance use: never Substance use type: does not use Do You Feel Safe in your Home?: Yes Lack of Transportation: No Lack of Food: Never True Current Housing: I Have Housing Concerned About Future Housing: No Difficulty Paying Gas/Electric Bills: No Difficulty Paying for Meds: No Currently Unemployed: No Education: High School Diploma/GED Difficulty w/ Childcare or Family Care: No Living arrangements: with family Occupation/Education: retired Spiritual care concerns: No Meds Home Medications and Allergies Home Medications Medication Instructions Recorded Confirmed Type aspirin 81 mg tablet,delayed 81 mg PO DAILY 11/03/19 10/20/23 History release amlodipine 5 mg tablet 5 mg PO DAILY 10/20/23 10/20/23 History atorvastatin 80 mg tablet 80 mg PO DAILY 10/20/23 10/20/23 History hydralazine 25 mg tablet 25 mg PO TID 10/20/23 10/20/23 History lisinopril 30 mg tablet 30 mg PO BID 10/20/23 10/20/23 History niacin 500 mg tablet 500 mg PO DAILY 10/20/23 10/20/23 History omega 6-gee-lsp-fish oil 900 1 cap PO DAILY 10/20/23 10/20/23 History mg-1,400 mg capsule,delayed release Allergies Allergy/AdvReac Type Severity Reaction Status Date / Time No Known Allergies Allergy Verified 09/24/23 10:23 Vital Signs Vital Signs - 24 hr 10/20/23 09:14 10/20/23 10:06 10/20/23 10:54 Temperature 96.6 F L
[2023-10-20 16:40] LABS: Hematocrit 41.7 % (42.0-52.0); Hemoglobin 13.5 g/dL (14.0-18.0)
[2023-10-20] MEDS: hydrALAZINE HCL 25 MG TABLET PO (17:52)
[2023-10-20] MEDS: lisinopriL 10 MG TABLET 30 MG PO (17:52)
[2023-10-20] MEDS: amLODIPine BESYLATE 5 MG TABLET PO (17:52)
[2023-10-20] MEDS: ATORVASTATIN 40 MG TABLET 80 MG PO (17:52)
[2023-10-21 02:20] LABS: Hematocrit 40.9 % (42.0-52.0)
[2023-10-21 05:30] VITALS: BP 174/71; PULSE 62; RESP 20; TEMP 35.9; O2SAT 95
[2023-10-21 06:46] LABS: Hematocrit 37.3 % (42.0-52.0); Hemoglobin 12.2 g/dL (14.0-18.0); Mean Corpuscular HGB Conc 32.7 g/dl (32-36); Mean Corpuscular Hemoglobin 31.5 pg (26-34); Mean Corpuscular Volume 96.4 fl (80-100); Mean Platelet Volume 9.8 fl (7.4-10.4); Platelet Count Result 160 k/mm3 (150-375); Red Blood Count 3.87 M/mm3 (4.6-6.20); Red Cell Distribution Width 13.5 % (11.5-14.5)
[2023-10-21 07:01] LABS: Anion Gap 4 mmol/L (8-16); Blood Urea Nitrogen 16 mg/dL (9-20); Calcium 8.5 mg/dL (8.4-10.2); Carbon Dioxide 26 mmol/L (22-30); Chloride 106 mmol/L (98-107); Estimated CRCL calculation 65 ml/min; Estimated Glomerular Filt Rate > 60; Glucose 111 mg/dL (65-110); Magnesium 2.3 mg/dL (1.6-2.3); Potassium 3.8 mmol/L (3.4-5.0); Sodium 136 mmol/L (137-145)
--- NOTE | 2023-10-21 08:05 | P.PNIM_ITS ---
Progress Note: A&P Assessment and Plan (1) Gross hematuria: Code(s): R31.0 - Gross hematuria Status: Acute (2) Benign prostatic hyperplasia: Code(s): N40.0 - Benign prostatic hyperplasia without lower urinary tract symptoms Status: Acute (3) Hypertension: Code(s): I10 - Essential (primary) hypertension Status: Acute (4) Acute UTI: Code(s): N39.0 - Urinary tract infection, site not specified Status: Acute (5) Urinary retention due to benign prostatic hyperplasia: Code(s): N40.1 - Benign prostatic hyperplasia with lower urinary tract symptoms; R33.8 - Other retention of urine Status: Acute Plan Urinary Retention secondary to BPH * CBI * Urology consulted * Cystoscopy done 10/19 * Flomax started * PSA pending * CT 10/16: Right posterolateral bladder wall thickening/Enlarged left obturator lymph node * bladder trails when urine running clear per urology recommendations Hematuria * CBI * Urology following * Cystoscopy 10/19 * HX of BPH * PSA pending * holding patient ASA HTN * Hypertensive * resumed patient home medications * BP per unit protocol * will add medication if needed UTI * Leukocytes + * nitrates - and no bacteria * will treat empirically pending culture but likely not a UTI Code status: Full code per patient DVT prophylaxis: SCD's (Hematuria) Stress ulcer prophylaxis: Protonix 40 daily PT/OT notes: Disposition: Time Spent With Patient Time with patient: 25 - 35 minutes Subjective Date/time seen: 10/21/23 08:05 Interval history: H&P: (Medical Record) Chief Complaint: Unable to urinate. Narrative: This is an 88-year-old male with benign prostatic hyperplasia, hypertension, and coronary artery disease who presented to the emergency department via private vehicle for evaluation of difficulties urinating. The patient provides the following history. He had a cystoscopy yesterday per Dr. Leon and last urinated at about 21:00 without difficulties although the urine was a bit bloody. He has not been able to urinate since that time. Bladder scan today revealed greater than 500 mL of urine in the bladder and grossly bloody urine was noted upon insertion of a Lawton catheter. He has since been started on continuous bladder irrigation and is being admitted in this setting. Hemoglobin is stable at 13.8. Kidney function is at baseline. Vital signs have been stable. He has no complaints and denies fever, chills, sweats, chest pain, shortness a breath, nausea, vomiting, back pain, and abdominal pain. 10/20: Review of Systems Review of Systems: All systems reviewed & are unremarkable except as noted in HPI and below Exam Narrative: Physical Exam: * GENERAL: Alert and oriented x 3. No acute distress. Well-nourished. * EYES: EOMI. No scleral icterus. PERRLA. * HEENT: Moist mucous membranes. No cervical lymphadenopathy. * LUNGS: Clear to auscultation bilaterally. No accessory muscle use. * CARDIOVASCULAR: Regular rate and rhythm. No murmur. No JVD. S1-S2 * ABDOMEN: Soft, mild tenderness and non-distended. No palpable masses. * EXTREMITIES: No edema. Non-tender * SKIN: No rashes or lesions. Skin warm, dry. * NEUROLOGIC: No focal neurological deficits. CN II-XII grossly intact * PSYCHIATRIC: Appropriate mood and affect. Good judgement and insight. No visual or auditory hallucinations. No suicidal or homicidal idea
--- NOTE | 2023-10-21 08:05 | PM.IMPN ---
Progress Note: A&P Assessment and Plan (1) Gross hematuria: Code(s): R31.0 - Gross hematuria Status: Acute (2) Benign prostatic hyperplasia: Code(s): N40.0 - Benign prostatic hyperplasia without lower urinary tract symptoms Status: Acute (3) Hypertension: Code(s): I10 - Essential (primary) hypertension Status: Acute (4) Acute UTI: Code(s): N39.0 - Urinary tract infection, site not specified Status: Acute (5) Urinary retention due to benign prostatic hyperplasia: Code(s): N40.1 - Benign prostatic hyperplasia with lower urinary tract symptoms; R33.8 - Other retention of urine Status: Acute Plan Urinary Retention secondary to BPH CBI Urology consulted Cystoscopy done 10/19 Flomax started PSA pending CT 10/16: Right posterolateral bladder wall thickening/Enlarged left obturator lymph node bladder trails when urine running clear per urology recommendations Hematuria CBI Urology following Cystoscopy 10/19 HX of BPH PSA pending holding patient ASA HTN Hypertensive resumed patient home medications BP per unit protocol will add medication if needed UTI Leukocytes + nitrates - and no bacteria will treat empirically pending culture but likely not a UTI Code status: Full code per patient DVT prophylaxis: SCD's (Hematuria) Stress ulcer prophylaxis: Protonix 40 daily PT/OT notes: Disposition: Time Spent With Patient Time with patient: 25 - 35 minutes Subjective Date/time seen: 10/21/23 08:05 Interval history: H&P: (Medical Record) Chief Complaint: Unable to urinate. Narrative: This is an 88-year-old male with benign prostatic hyperplasia, hypertension, and coronary artery disease who presented to the emergency department via private vehicle for evaluation of difficulties urinating. The patient provides the following history. He had a cystoscopy yesterday per Dr. Leon and last urinated at about 21:00 without difficulties although the urine was a bit bloody. He has not been able to urinate since that time. Bladder scan today revealed greater than 500 mL of urine in the bladder and grossly bloody urine was noted upon insertion of a Lawton catheter. He has since been started on continuous bladder irrigation and is being admitted in this setting. Hemoglobin is stable at 13.8. Kidney function is at baseline. Vital signs have been stable. He has no complaints and denies fever, chills, sweats, chest pain, shortness a breath, nausea, vomiting, back pain, and abdominal pain. 10/20: Review of Systems Review of Systems: All systems reviewed & are unremarkable except as noted in HPI and below Exam Narrative: Physical Exam: GENERAL: Alert and oriented x 3. No acute distress. Well-nourished. EYES: EOMI. No scleral icterus. PERRLA. HEENT: Moist mucous membranes. No cervical lymphadenopathy. LUNGS: Clear to auscultation bilaterally. No accessory muscle use. CARDIOVASCULAR: Regular rate and rhythm. No murmur. No JVD. S1-S2 ABDOMEN: Soft, mild tenderness and non-distended. No palpable masses. EXTREMITIES: No edema. Non-tender SKIN: No rashes or lesions. Skin warm, dry. NEUROLOGIC: No focal neurological deficits. CN II-XII grossly intact PSYCHIATRIC: Appropriate mood and affect. Good judgement and insight. No visual or auditory hallucinations. No suicidal or homicidal ideation. Urinary Catheter: Urinary Catheter: patent and draining (CBI) Objective Data Vital Signs Vital Signs: Vital Signs - 24 hr 10/20/23 09:14 10/20/23 10:06 10/20/23 10:54 Temperature 96.6 F L Pulse Rate 53 L 54 L 65 Respiratory Rate 18 18 20 Blood Pressure 154/61 H 136/57 L 162/69 H Pulse Oximetry 97 98 93 Oxygen Delivery Room Air 10/20/23 11:36 10/20/23 12:19 10/20/23 14:02 Temperature Pulse Rate 77 68 59 L Respiratory Rate 16 18 16 Blood Pressure 188/104 H 165/78 H 162/70 H Pulse Oximetry 99
[2023-10-21] MEDS: TAMSULOSIN HCL 0.4 MG CAPSULE PO (08:22)
[2023-10-21] MEDS: amLODIPine BESYLATE 5 MG TABLET PO (08:22)
[2023-10-21] MEDS: ATORVASTATIN 40 MG TABLET 80 MG PO (08:22)
[2023-10-21] MEDS: PANTOPRAZOLE 40 MG TABLET PO (08:22)
[2023-10-21] MEDS: hydrALAZINE HCL 25 MG TABLET PO ×2 (08:23→11:07)
[2023-10-21] MEDS: lisinopriL 10 MG TABLET 30 MG PO (08:23)
--- NOTE | 2023-10-21 08:26 | PC.NURSE ---
Code status was discussed with patient and his upon admission. Patient is alert and oriented x4. Both patient and his stated that he wishes to be a DNR. They also stated that they have legal documents stating that patient is to be a DNR. Pt's stated she will bring in a copy of the DNR paperwork.
--- NOTE | 2023-10-21 09:42 | WPDURCON ---
Assessment and Plan Assessment and plan (1) Urinary retention due to benign prostatic hyperplasia: Code(s): N40.1 - Benign prostatic hyperplasia with lower urinary tract symptoms; R33.8 - Other retention of urine Status: Acute (2) Gross hematuria: Code(s): R31.0 - Gross hematuria Status: Acute Assessment and Plan: gross hematuria likely due to UTI, hematuria resolved. he needs outpt cystoscopy to assess for bladder cancer. he is agreeable. understands risks of bladder CA (3) Benign prostatic hyperplasia: Code(s): N40.0 - Benign prostatic hyperplasia without lower urinary tract symptoms Status: Acute Assessment and Plan: maintain gonzalez , outpt void trial (4) Acute UTI: Code(s): N39.0 - Urinary tract infection, site not specified Status: Acute Urology Consult Note HPI Date Seen: 10/21/23 Requesting Physician: Artem Raman MD Primary Care Provider: Polo Vasquez MD Consult Narrative Narrative: Gómez Rose is a 88 year old male with gross hematuria, UTI. He has a histroy of BPH. HAd CT scan that showed bladder wall thickening, cystoscopy recommended. he was placed on CBI, urine has cleared. he has no pain. No fever or chills, was passing small clots at home. Denies fever chills. states he sees Dr Leon at [place]. Review of Systems Constitutional: Constitutional: Reports as per HPI, Reports no additional constitutional complaints, Denies body ache(s) and Denies chills Eyes: Eyes: Reports as per HPI and Reports no additional eye complaints ENT: Reports system reviewed and no additional complaints, except as documented and Reports as per HPI Cardiovascular: Cardiovascular: Reports as per HPI and Reports no additional cardiovascular complaints Respiratory: Respiratory: Reports as per HPI and Reports no additional respiratory complaints Gastrointestinal: Gastrointestinal: Reports as per HPI and Reports no additional gastrointestinal complaints Genitourinary: Genitourinary: Reports no additional male genitourinary complaints and Reports as per HPI Musculoskeletal: Musculoskeletal: Reports no additional musculoskeletal complaints and Reports as per HPI Integumentary/Breasts: Skin/Breast: Reports system reviewed and no additional complaints, except as docu Neurologic: Reports system reviewed and no additional complaints, except as documented Psychiatric: Psychiatric: Reports no additional psychiatric complaints PMFSH Past Medical History Medical History Arthritis Benign prostatic hyperplasia Coronary artery disease Hearing loss Hemorrhoids Hyperlipidemia Hypertension Peptic ulcer Shingles Surgical History Surgical History History of arthroscopy of both knees History of colonoscopy with polypectomy 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 History of vasectomy Family History Family History Mother Family history of pancreatic cancer Patient's mother is Family history of malignant neoplasm of ovary Father Acute myocardial infarction Sibling Family history of primary malignant neoplasm of liver Family history of malignant neoplasm of kidney Other Family history of malignant neoplasm Social History Social History Social History: Surrogate medical decision maker: Elly Rose, spouse. Code status: Full code. Smoking packs per day: 1 Smoking cigarettes per day: 20.0 Smoking status: Former smoker Tobacco type: cigarettes Second hand tobacco smoke exposure: No Smoking end date: 08/27/85 Alcohol intake: current Drinks per week: 10 Substance use: never Substance use
[2023-10-21 09:49] LABS: Hematocrit 39.5 % (42.0-52.0); Hemoglobin 12.5 g/dL (14.0-18.0)
[2023-10-21 09:50] LABS: Hematocrit 37.8 % (42.0-52.0); Mean Corpuscular HGB Conc 31.7 g/dl (32-36); Mean Corpuscular Hemoglobin 31.5 pg (26-34); Mean Corpuscular Volume 99.2 fl (80-100); Mean Platelet Volume 9.7 fl (7.4-10.4); Platelet Count Result 164 k/mm3 (150-375); Red Blood Count 3.81 M/mm3 (4.6-6.20); Red Cell Distribution Width 13.4 % (11.5-14.5); White Blood Count 7.9 K/mm3 (4.5-10.0)
[2023-10-21 10:26] LABS: Alanine Aminotransferase 18 U/L (6-50); Albumin Level 3.6 g/dL (3.5-5.1); Alkaline Phosphatase 65 U/L (38-126); Anion Gap 8 mmol/L (8-16); Aspartate Amino Transferase 34 U/L (17-59); Bilirubin,Total 1.4 mg/dL (0.2-1.3); Blood Urea Nitrogen 15 mg/dL (9-20); Calcium 8.4 mg/dL (8.4-10.2); Carbon Dioxide 20 mmol/L (22-30); Chloride 104 mmol/L (98-107); Estimated CRCL calculation 65 ml/min; Estimated Glomerular Filt Rate > 60; Glucose 157 mg/dL (65-110); Potassium 3.7 mmol/L (3.4-5.0); Sodium 132 mmol/L (137-145)
[2023-10-21] MEDS: oxyBUTYnin CHLORIDE XL 5 MG TAB.ER.24 10 MG PO (11:07)
--- NOTE | 2023-10-21 11:30 | PM.DS ---
DS: Admitting Diagnosis Discharge Date 10/21/2023 Admitting Diagnosis Hematuria DS: Discharge Diagnosis Discharge Diagnosis (1) Gross hematuria: Code(s): R31.0 - Gross hematuria Status: Acute (2) Benign prostatic hyperplasia: Code(s): N40.0 - Benign prostatic hyperplasia without lower urinary tract symptoms Status: Acute (3) Hypertension: Code(s): I10 - Essential (primary) hypertension Status: Acute (4) Acute UTI: Code(s): N39.0 - Urinary tract infection, site not specified Status: Acute (5) Urinary retention due to benign prostatic hyperplasia: Code(s): N40.1 - Benign prostatic hyperplasia with lower urinary tract symptoms; R33.8 - Other retention of urine Status: Acute Plan Urinary Retention secondary to BPH CBI Urology consulted Cystoscopy done 10/19 Flomax started PSA pending CT 10/16: Right posterolateral bladder wall thickening/Enlarged left obturator lymph node bladder trails when urine running clear per urology recommendations Hematuria CBI Urology following Cystoscopy 10/19 HX of BPH PSA pending holding patient ASA HTN Hypertensive resumed patient home medications BP per unit protocol will add medication if needed UTI Leukocytes + nitrates - and no bacteria will treat empirically pending culture but likely not a UTI Disposition: Patient discharged to home with family need to schedule outpatient follow-up with Urology for voiding trials discharge with Gonzalez catheter patient and family agreed with plan Discharge with indwelling urinary catheter Will need to call Dr. Leon office to schedule an appointment this week for voiding trial: [phone] hold ASA until seen by urology Keep catheter bag below bladder and drain to gravity Empty bag before sumi way full Monitor urinary output if urine stops flowing from catheter site and unable to emptying bladder seek medical attention. Monitor for worsening signs of infection such as fever, chills, altered mental status, or tachycardia if any present seek medical attention. Take prophylactic antibiotic therapy as prescribed DS: Summary Hospital Course Reason for hospitalization: Hematuria Hospital Course: H&P:? (Medical Record) Chief Complaint: Unable to urinate. Narrative: This is an 88-year-old male with benign prostatic hyperplasia, hypertension, and coronary artery disease who presented to the emergency department via private vehicle for evaluation of difficulties urinating. The patient provides the following history. He had a cystoscopy yesterday per Dr. Leon and last urinated at about 21:00 without difficulties although the urine was a bit bloody. He has not been able to urinate since that time. Bladder scan today revealed greater than 500 mL of urine in the bladder and grossly bloody urine was noted upon insertion of a Gonzalez catheter. He has since been started on continuous bladder irrigation and is being admitted in this setting. Hemoglobin is stable at 13.8. Kidney function is at baseline. Vital signs have been stable. He has no complaints and denies fever, chills, sweats, chest pain, shortness a breath, nausea, vomiting, back pain, and abdominal pain. 10/20: Discharged Patient CBI running clear seen by urology, plan is for patient to discharge back to home with current gonzalez catheter and will follow-up with Dr. Leon for voiding trials in his office. Patient had recent cystoscopy to evaluate for bladder cancer may need to resume medication for BPH and retention. Patient ambulatory and discharged home with family. Did treat empirically for UTI with Bactrim x 7 days. Status at Discharge Functional status at discharge: independent ambulation Overall status at discharge: patient is back to baseline Time Spent with Patient Time attestation: Total time spent providing and/or coordinating discharge services: Time spent: Thomas carlos manuel
--- NOTE | 2023-10-21 12:16 | PC.NURSE ---
Pt catheter bag changed to leg bag and clean large bag sent as well. Pt and educated on how to change bags and how much pt should be urinating hourly. Changing of bags was demonstrated as well.
[2023-10-21 14:31] LABS: Prostate Specific Antigen 1.4 ng/mL (< OR = 4.0)
== END 2023-10-21 12:37 | disposition home or self-care (01) ==
LOC: ANHED 13:41 → ANH3MEDSUR 14:26
PROVIDERS: Nurse Practitioner Family; Physician Assistant; Admitting Provider Internal Medicine; Emergency Provider Physician Assistant; PCP Emergency Medicine; Visit Provider Internal Medicine
DX: N40.1 Benign prostatic hyperplasia with lower urinary tract symptoms (principal); R33.8 Other retention of urine; N39.0 Urinary tract infection, site not specified; R31.0 Gross hematuria; I25.10 Atherosclerotic heart disease of native coronary artery without angina pectoris; I10 Essential (primary) hypertension; E78.5 Hyperlipidemia, unspecified; Z95.1 Presence of aortocoronary bypass graft; Z87.891 Personal history of nicotine dependence; Z79.82 Long term (current) use of aspirin
CPT/HCPCS: 36415; 51700; 80048; 80053; 81001; 83735; 84153; 85014; 85018; 85025; 85027; 85610; 85730; 87086; 96365; 96366; 99285; A9270; G0103; G0378; J0696

== ENCOUNTER 2023-10-22 13:36 | Emergency (ER) | payer OTHER, SELFPAY ==
[2023-10-22 13:41] VITALS: BP 108/41; PULSE 72; RESP 16; TEMP 36.4; O2SAT 96
--- NOTE | 2023-10-22 17:22 | ED.GENADULT ---
HPI - General Adult General Chief complaint: Urogenital-Male Stated complaint: CATHETER PROBLEMS Time Seen by Provider: 10/22/23 17:01 Source: patient Mode of arrival: ambulatory Limitations: no limitations History of Present Illness HPI narrative: This is a 88-year-old male who presents to the ED with chief complaint of possible acute Lawton catheter problem. He reports he noticed some potential leaking earlier this morning. He was discharged from hospital yesterday and said for outpatient procedure with Urology 2 days. Patient notes that he felt some wet spots in the underpants which was concerning to him. Denies fevers, chills, hematuria, clogged catheter. Nursing reports that patient was this understanding how to use the leg bag and the catheter was free hanging with the bag attached on her examination. Related Data Home Medications Medication Instructions Recorded Confirmed aspirin 81 mg tablet,delayed 81 mg PO DAILY 11/03/19 10/22/23 release amlodipine 5 mg tablet 5 mg PO DAILY 10/20/23 10/22/23 atorvastatin 80 mg tablet 80 mg PO DAILY 10/20/23 10/22/23 hydralazine 25 mg tablet 25 mg PO TID 10/20/23 10/22/23 lisinopril 30 mg tablet 30 mg PO BID 10/20/23 10/22/23 niacin 500 mg tablet 500 mg PO DAILY 10/20/23 10/22/23 omega 2-lje-oky-fish oil 900 1 cap PO DAILY 10/20/23 10/22/23 mg-1,400 mg capsule,delayed release Allergies Allergy/AdvReac Type Severity Reaction Status Date / Time No Known Allergies Allergy Verified 09/24/23 10:23 Review of Systems Review of Systems: All systems as dictated in HPI [facility] Past Medical History Medical History Arthritis Benign prostatic hyperplasia Coronary artery disease Hearing loss Hemorrhoids Hyperlipidemia Hypertension Peptic ulcer Shingles Surgical History Surgical History History of arthroscopy of both knees History of colonoscopy with polypectomy 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 History of vasectomy Family History Family History Mother Family history of pancreatic cancer Patient's mother is Family history of malignant neoplasm of ovary Father Acute myocardial infarction Sibling Family history of primary malignant neoplasm of liver Family history of malignant neoplasm of kidney Other Family history of malignant neoplasm Social History Social History Social History: Surrogate medical decision maker: Elly Rose, spouse. Code status: Full code. Smoking packs per day: 1 Smoking cigarettes per day: 20.0 Smoking status: Former smoker Tobacco type: cigarettes Second hand tobacco smoke exposure: No Smoking end date: 08/27/85 Alcohol intake: current Drinks per week: 10 Substance use: never Substance use type: does not use Do You Feel Safe in your Home?: Yes Lack of Transportation: No Lack of Food: Never True Current Housing: I Have Housing Concerned About Future Housing: No Difficulty Paying Gas/Electric Bills: No Difficulty Paying for Meds: No Currently Unemployed: No Education: High School Diploma/GED Difficulty w/ Childcare or Family Care: No Living arrangements: with family Occupation/Education: retired Spiritual care concerns: No Exam Narrative: GENERAL: Well-appearing, well-nourished, and in no acute distress. HEAD: Normocephalic, atraumatic. EYES: PERRLA and EOMI. ENT: Nares clear, no rhinorrhea or epistaxis. Mucous membranes moist. Oropharynx without tonsillar hypertrophy exudate or other lesions. NECK: Supple. No adenopathy or masses. CHEST: No respiratory distress. Clear to auscultation. No wheezes rales or rhonchi HEART: Regular
[2023-10-22 17:58] VITALS: BP 111/73; PULSE 67; RESP 18; O2SAT 99
== END 2023-10-22 17:59 | disposition home or self-care (01) ==
PROVIDERS: Emergency Provider Physician Assistant; PCP Emergency Medicine
DX: Z43.6 Encounter for attention to other artificial openings of urinary tract (principal); I25.10 Atherosclerotic heart disease of native coronary artery without angina pectoris; I10 Essential (primary) hypertension; E78.5 Hyperlipidemia, unspecified; N40.0 Benign prostatic hyperplasia without lower urinary tract symptoms; M19.90 Unspecified osteoarthritis, unspecified site; Z95.1 Presence of aortocoronary bypass graft; Z87.11 Personal history of peptic ulcer disease; Z87.891 Personal history of nicotine dependence; Z89.022 Acquired absence of left finger(s)
CPT/HCPCS: 99282

== ENCOUNTER 2023-10-23 21:11 | Observation (INO) | payer OTHER, SELFPAY ==
[2023-10-22 14:06] VITALS: BMI 29.5
--- NOTE | 2023-10-22 14:06 | PC.NURSE ---
PRE-OP INSTRUCTIONS, PLEASE READ CAREFULLY Report to the Outpatient Waiting Room, entrance under the green pavilion located off [facility], at time _0600_ on date _10/25/23_. Planned Procedure Time: _0730_. Time changes happen often and if your time is changed the preop area will call you the afternoon before. - You and your visitor will be asked to self-screen and do not enter if you have any COVID symptoms. - A mask is optional within the hospital at this time. Patients may have clear liquids (water, carbonated beverages, clear teas, apple juice) until 3 hours prior to surgery (0430 AM) with a maximum of 20 ounces. - No food from midnight until time of surgery - Infants may have breast milk until 4 hours before surgery, formula 6 hours prior to surgery. - Children will be allowed to drink immediately following surgery. If applicable, please bring a bottle or sippy cup to assist with drinking. Juice, water, soda, and popsicles are readily available. For infants on formula, please bring formula the day of surgery. Pacifiers are allowed. Take the following medications with a SIP of water the morning of surgery: _AMLODIPINE, HYDRALAZINE, ANTIBIOTIC_ DO NOT STOP ANY OF YOUR OTHER PRESCRIPTION MEDICATIONS PRIOR TO SURGERY ?EXCEPT THE FOLLOWING Medications to discontinue per physician __STATES PT HAS BEEN OFF ASPIRIN SINCE 10/19/23 Date to take last dose Please no make-up, nail uzbek, hairspray, perfume, deodorant, or body powder the day of surgery. No jewelry (including any body piercings) or valuables the day of surgery, leave them at home. Please take a shower or bath the night before, or the morning of, surgery with an antibacterial soap. Wear comfortable, loose fitting clothing. Children are encouraged to wear pajamas. - Jewelry must be removed prior to entering the operating room. Rings and piercings that are not removed may be cut off. - The hospital will not accept responsibility for valuables. - Please leave all valuables, including medications, at home the day of surgery. If you are going home after surgery, a licensed pack train driver must drive you home. - NO public transportation without another adult if you receive anesthesia. - We recommend that an adult stay with you for 24 hours following discharge. - We also recommend that you do not drive, make important decision, drink alcoholic beverages, or take any drugs that were not prescribed by your health care provider for at least 24 hours after your discharge time. Follow any additional instructions given to you from your surgeon. If you or anyone in your household have experienced Covid symptoms in the past week, please notify your surgeon or the nurse liaison at the phone number below for possible testing. Telephone instructions given to _PATIENT'S SPOUSE - DENYS__and asked if any additional questions and then verbalized understanding. Patient advised to call surgeon office or pre surgery nurse liaison [phone] if any additional questions.
[2023-10-23 21:16] VITALS: BP 134/47; PULSE 61; RESP 20; TEMP 36.3; O2SAT 94
[2023-10-23 23:15] LABS: Basophils Percent Auto 0.3 % (0.2-1.2); Eosinophils Absolute Auto 0.4 K/mm3 (0-0.3); Eosinophils Percent Auto 5.1 % (0-4.4); Hematocrit 37.1 % (42.0-52.0); Hemoglobin 12.5 g/dL (14.0-18.0); Immature Granulocyte Absolute 0.03 K/mm3 (0.00-0.031); Immature Granulocyte Percent A 0.4 % (0-0.5); Lymphocytes Absolute Auto 1.14 K/mm3 (0.9-3.2); Lymphocytes Percent Auto 16.1 % (18.3-44.2); Mean Corpuscular HGB Conc 33.7 g/dl (32-36); Mean Corpuscular Hemoglobin 31.5 pg (26-34); Mean Corpuscular Volume 93.5 fl (80-100); Mean Platelet Volume 9.3 fl (7.4-10.4); Monocytes Absolute Auto 0.7 K/mm3 (0.1-0.6); Monocytes Percent Auto 9.6 % (2.6-8.5); Neutrophils Absolute Auto 4.8 K/mm3 (1.3-6.7); Neutrophils Percent Auto 68.5 % (45.5-73.1); Platelet Count Result 185 k/mm3 (150-375); Red Blood Count 3.97 M/mm3 (4.6-6.20); Red Cell Distribution Width 13.3 % (11.5-14.5); White Blood Count 7.1 K/mm3 (4.5-10.0)
[2023-10-23 23:27] LABS: Bacteria Urine Rare /hpf; RBC Urine >100 /hpf (0-2); Squamous Epithelial Cell Urine Many /hpf (Few); WBC Urine 51-100 /hpf
[2023-10-23 23:30] LABS: INR 0.9; Prothrombin Time 12.2 Seconds (11.1-14.7)
[2023-10-23 23:38] LABS: Bilirubin Urine 1+ (Negative); Blood Urine 3+ (Negative); Color Urine Red (Yellow); Glucose Urine UA Negative (Negative); Ketones Urine Negative (Negative); Leukocyte Esterase Ur 2+ LEU/UL (Negative); Nitrate Urine Negative (Negative); Protein Urine 3+ mg/dL (Negative); Specific Grav Ur 1.015 (1.001-1.035); Urobilinogen Urine 0.2 mg/dL (<2.0); pH Urine 5.5 (5.0-9.0)
[2023-10-23 23:44] LABS: Appearance Urine Cloudy (Clear)
[2023-10-23 23:48] LABS: Add Urine Microscopic? YES
[2023-10-24] VITALS (7 sets, daily range): BP systolic 110–167; BP diastolic 50–73; PULSE 55–75; RESP 13–19; TEMP 36.7–37; O2SAT 95–97; BMI 32.5
--- NOTE | 2023-10-24 00:54 | PC.NURSE ---
500mL sterile water overrode from pyxis for irrigation of 3 way catheter.
--- NOTE | 2023-10-24 01:05 | PC.NURSE ---
BMP called and added on to specimens in lab at this time.
--- NOTE | 2023-10-24 01:12 | ED.GENADULT ---
HPI - General Adult General Chief complaint: Urogenital-Male Stated complaint: hematuria Time Seen by Provider: 10/24/23 00:14 History of Present Illness HPI narrative: Patient is 88-year-old gentleman who presents emergency department with chief complaint of blood in his catheter. Patient was recently admitted to the hospital treated for a UTI found to have a lesion in his bladder and is scheduled for surgery on . Patient reports that this evening he noticed there was some blood in his catheter without clots patient states that he feels that his abdomen is little bit more full than normal and was concerned that there may be something wrong with the catheter. Patient reports he is being treated for urinary tract infection and has been compliant Related Data Home Medications Medication Instructions Recorded Confirmed aspirin 81 mg tablet,delayed 81 mg PO DAILY 11/03/19 10/22/23 release amlodipine 5 mg tablet 5 mg PO DAILY 10/20/23 10/22/23 atorvastatin 80 mg tablet 80 mg PO DAILY 10/20/23 10/22/23 hydralazine 25 mg tablet 25 mg PO TID 10/20/23 10/22/23 lisinopril 30 mg tablet 30 mg PO BID 10/20/23 10/22/23 niacin 500 mg tablet 500 mg PO DAILY 10/20/23 10/22/23 omega 7-hct-tqh-fish oil 900 1 cap PO DAILY 10/20/23 10/22/23 mg-1,400 mg capsule,delayed release Allergies Allergy/AdvReac Type Severity Reaction Status Date / Time No Known Allergies Allergy Verified 10/23/23 23:51 Review of Systems Review of Systems: A 10 system review of systems was completed on the patient and is negative except for what is stated in the HPI. Nursing and ancillary documentation was reviewed. 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 History of vasectomy Family History Family History Mother Family history of pancreatic cancer Patient's mother is Family history of malignant neoplasm of ovary Father Acute myocardial infarction Sibling Family history of primary malignant neoplasm of liver Family history of malignant neoplasm of kidney Other Family history of malignant neoplasm Social History Social History Social History: Surrogate medical decision maker: Elly Rose, spouse. Code status: Full code. Smoking packs per day: 1 Smoking cigarettes per day: 20.0 Smoking status: Former smoker Tobacco type: cigarettes Second hand tobacco smoke exposure: No Smoking end date: 08/27/85 Alcohol intake: current Drinks per week: 10 Substance use: never Substance use type: does not use Do You Feel Safe in your Home?: Yes Lack of Transportation: No Lack of Food: Never True Current Housing: I Have Housing Concerned About Future Housing: No Difficulty Paying Gas/Electric Bills: No Difficulty Paying for Meds: No Currently Unemployed: No Education: High School Diploma/GED Difficulty w/ Childcare or Family Care: No Living arrangements: with family Occupation/Education: retired Spiritual care concerns: No Exam Narrative: GENERAL: Well-appearing, well-nourished, and in no acute distress. HEAD: Normocephalic, atraumatic. EYES: PERRLA and EOMI. ENT: Nares clear, no rhinorrhea or epistaxis. Mucous membranes moist. NECK: Supple. CHEST: Clear to auscultation. No respiratory distress. HEART: Regular rate and rhythm. No murmur he
[2023-10-24 01:35] LABS: Anion Gap 5 mmol/L (8-16); Blood Urea Nitrogen 22 mg/dL (9-20); Calcium 8.6 mg/dL (8.4-10.2); Carbon Dioxide 26 mmol/L (22-30); Chloride 94 mmol/L (98-107); Estimated CRCL calculation 33 ml/min; Estimated Glomerular Filt Rate 48; Glucose 98 mg/dL (65-110); Potassium 3.9 mmol/L (3.4-5.0); Sodium 125 mmol/L (137-145)
--- NOTE | 2023-10-24 04:48 | PM.IMHP ---
H&P: HPI History of Present Illness Date/Time: 10/24/23 04:48 Chief Complaint: blood in his catheter bag Narrative: 88-year-old male with a past medical history of BPH, hypertension, and coronary disease who presented to the ER due to hematuria. patient had been admitted to the hospital 10/20/2023 through 10/22/2023 due to urinary retention and gross hematuria. And three-way Lawton catheter placed and his urine eventually cleared. The patient was discharged home on Lawton catheter. His hematuria was thought to be due to a likely bladder tumor and he was scheduled for outpatient cystoscopy on the . He was also treated for possible UTI with Bactrim. However patient's urine culture returned negative. He reports that he was continuing his course of Bactrim. He was not having any nausea, vomiting, headaches, weakness or confusion. On arrival to the ER labs demonstrated hyponatremia and acute kidney injury. Patient reports his urine output is been stable and steady and urine is not changed in appearance until yesterday when he noticed frankly bloody urine. He did not notice any blood clots in his urine. He felt the abdomen slow been more distended than usual. He has not had any fevers or chills. Review of Systems Review of Systems: 12 systems were reviewed with pertinent positives and negatives per HPI. Except as documented in the HPI, all other systems were reviewed and are negative. 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 History of vasectomy Family History Family History Mother Family history of pancreatic cancer Patient's mother is Family history of malignant neoplasm of ovary Father Acute myocardial infarction Sibling Family history of primary malignant neoplasm of liver Family history of malignant neoplasm of kidney Other Family history of malignant neoplasm Social History Social History Social History: Surrogate medical decision maker: Elly Rose, spouse. Code status: Full code. Smoking packs per day: 1 Smoking cigarettes per day: 20.0 Smoking status: Never smoker Tobacco type: cigarettes Second hand tobacco smoke exposure: No Smoking end date: 08/27/85 Alcohol intake: never Drinks per week: 10 Substance use: never Substance use type: does not use Do You Feel Safe in your Home?: Yes Lack of Transportation: No Lack of Food: Never True Current Housing: I Have Housing Concerned About Future Housing: No Difficulty Paying Gas/Electric Bills: No Difficulty Paying for Meds: No Currently Unemployed: No Education: Decline to Answer Difficulty w/ Childcare or Family Care: No Living arrangements: with family Occupation/Education: retired Spiritual care concerns: No Meds Home Medications and Allergies Home Medications Medication Instructions Recorded Confirmed Type aspirin 81 mg tablet,delayed 81 mg PO DAILY 11/03/19 10/24/23 History release amlodipine 5 mg tablet 5 mg PO DAILY 10/20/23 10/24/23 History atorvastatin 80 mg tablet 80 mg PO DAILY 10/20/23 10/24/23 History hydralazine 25 mg tablet 25 mg PO TID 10/20/23 10/24/23 History lisinopril 30 mg tablet 30 mg PO BID 10/20/23 10/24/23 History niacin 500 mg tablet 500 mg PO DAILY 10/20/23 10/24/23 History omega 5-oha-teo-fish oil 900 1 cap PO DAILY
[2023-10-24 05:25] LABS: Creatinine Urine 103.9 mg/dL
[2023-10-24 05:33] LABS: Sodium Urine Random 45 meq/L
[2023-10-24 07:35] LABS: Anion Gap 6 mmol/L (8-16); Blood Urea Nitrogen 19 mg/dL (9-20); Calcium 8.4 mg/dL (8.4-10.2); Carbon Dioxide 25 mmol/L (22-30); Chloride 98 mmol/L (98-107); Estimated CRCL calculation 45 ml/min; Estimated Glomerular Filt Rate 57; Glucose 103 mg/dL (65-110); Sodium 129 mmol/L (137-145)
[2023-10-24] MEDS: ATORVASTATIN 40 MG TABLET 80 MG PO (08:52)
[2023-10-24] MEDS: lisinopriL 10 MG TABLET 30 MG PO (08:52)
[2023-10-24] MEDS: OMEGA 3 POLYUNSAT FATTY ACIDS 1 GM CAP PO (08:53)
[2023-10-24] MEDS: amLODIPine BESYLATE 5 MG TABLET PO (08:53)
[2023-10-24] MEDS: hydrALAZINE HCL 25 MG TABLET PO ×3 (08:53→17:12)
--- NOTE | 2023-10-24 12:02 | PM.IMPN ---
Progress Note: A&P Assessment and Plan (1) Acute hyponatremia: Code(s): E87.1 - Hypo-osmolality and hyponatremia Status: Acute Assessment and Plan: Suspect secondary to medication -patient with history of home Bactrim use -continue to monitor BMP -strict I&O -hold p.o. lisinopril, until scheduled urologic procedure (2) Acute kidney injury: Code(s): N17.9 - Acute kidney failure, unspecified Status: Acute Assessment and Plan: -CBI draining clear yellow urine -continue to monitor for hematuria -hgb is stable at this time (3) Urinary retention due to benign prostatic hyperplasia: Code(s): N40.1 - Benign prostatic hyperplasia with lower urinary tract symptoms; R33.8 - Other retention of urine Status: Acute (4) Gross hematuria: Code(s): R31.0 - Gross hematuria Status: Acute Plan Continue home medications: Hold home medication lisinopril, may resume after scheduled procedure tomorrow VTE Prophylaxis: SCDs DIET: NPO after midnight Anticipated hospital stay: > 1 day Code Status: Full Subjective Date/time seen: 10/24/23 12:02 Interval history: 88-year-old male with a past medical history of BPH, hypertension, and coronary disease who presented to the ER due to hematuria. ? patient had been admitted to the hospital 10/20/2023 through 10/22/2023 due to urinary retention and gross hematuria.? And three-way Lawton catheter placed and his urine eventually cleared.? The patient was discharged home on Lawton catheter.? His hematuria was thought to be due to a likely bladder tumor and he was scheduled for outpatient cystoscopy on the .? He was also treated for possible UTI with Bactrim.? However patient's urine culture returned negative.? ? He reports that he was continuing his course of Bactrim.? He was not having any nausea, vomiting, headaches, weakness or confusion.? On arrival to the ER labs demonstrated hyponatremia and acute kidney injury.? Patient reports his urine output is been stable and steady and urine is not changed? in appearance until yesterday when he noticed frankly bloody urine.? He did not notice any blood clots in his urine.? He felt the abdomen slow been more distended than usual.? He has not had any fevers or chills. Interval Hx: 10/24: Patient seen this a.m. he denies any overnight complaints, patient was recently admitted 10/20-, for the retention and gross hematuria, patient with the CBI which is draining clear yellow urine, patient is scheduled for cystoscopy with TURBT and gemcitabine installation with Dr. Leon. Review of Systems Review of Systems: 12 systems were reviewed with pertinent positives and negatives per HPI. Except as documented in the HPI, all other systems were reviewed and are negative. Exam Narrative: General: Awake, alert, comfortable, no acute distress HEENT: Normocephalic, atraumatic, sclerae anicteric Respiratory: Normal respiratory effort, no accessory muscle use Abdomen: Nondistended, soft, nontender : Lawton catheter draining yellow colored urine without clots Skin: Normal coloration, warm and dry Neurologic: No focal neuro deficits noted Psychiatric: Appropriate mood and affect, judgment and insight intact Objective Data Vital Signs Vital Signs: Vital Signs - 24 hr 10/23/23 21:16 10/24/23 02:10 10/24/23 04:36 Temperature 97.4 F L Pulse Rate 61 60 60 Respiratory Rate 20 17 15 Blood Pressure 134/47 L 126/56 L 110/52 L Pulse Oximetry 94 97 97 Oxygen Delivery Room Air 10/24/23 06:00 10/24/23 04:30 10/24/23 08:00 Temperature 98.0 F 98.1 F Pulse Rate 75 75 Respiratory Rate 19 19 Blood Pressure 167/73 H 167/73 H Pulse Oximetry 96 96 Oxygen Delivery Room Air Intake/Output Intake/Output: Intake & Output 10/21/23 10/22/23 10/23/23 10/24/23 23:59 23:59 23:59 23:59 Intake Total 626 Output Total 1950 Balance -1324 Meds/Results Medications: Active Medi
--- NOTE | 2023-10-24 14:45 | WPDURCON ---
Assessment and Plan Assessment and plan (1) Urothelial lesion: Code(s): N39.8 - Other specified disorders of urinary system Status: Acute Assessment and Plan: Outpatient cystoscopy completed on 10/19/2023 demonstrated sessile appearing urothelial lesions in the posterior midline and trigone. Was scheduled for outpatient TURBT with gemcitabine installation on 10/25/[address] Leon. Will plan to proceed with surgery tomorrow morning as scheduled if sodium levels remain stable. NPO at midnight (2) Gross hematuria: Code(s): R31.0 - Gross hematuria Status: Acute Assessment and Plan: Likely secondary to above. Urine culture from 10/20/23 is negative. Repeat culture pending. Continue to monitor, urine is diamond colored at this time (3) Acute hyponatremia: Code(s): E87.1 - Hypo-osmolality and hyponatremia Status: Acute Assessment and Plan: Managed per primary team. Monitor sodium trends, if remains stable will plan for scheduled procedure tomorrow Urology Consult Note HPI Date Seen: 10/24/23 Requesting Physician: Shasta Starks DO Primary Care Provider: Polo Vasquez MD Consult Narrative Narrative: Gómez Rose is a 88 year old male with a history of BPH and recently diagnosed bladder tumor, discovered on cystoscopy 10/19/2023. He was scheduled for TURBT with gemcitabine instillation which was planned for 10/25/23. Following his cystoscopy, he developed significant suprapubic pressure and presented to the ER the following morning as he was unable to void. He was admitted over the weekend, 10/20/23-10/21/23 for urinary retention and gross hematuria. A [address] way Lawton catheter was placed and he was started on CBI. Urine promptly cleared. He was discharged with Lawton catheter in place on 10/21/2023. Also given a course of Bactrim for suspected UTI, though his culture was ultimately negative. He returned to the emergency department early this morning as he again noted blood in his catheter. On arrival, he was noted to have hyponatremia and acute kidney injury and was admitted in this setting. At the time of my evaluation, he is feeling well offers no concerns. His urine is diamond colored. His Lawton catheter is draining well. He is afebrile and his vital signs are stable. Sodium has improved to 129 and creatinine is within normal limits, 1.2. As noted above, he is scheduled for cystoscopy with TURBT and gemcitabine instillation on 10/25/[address] Leon. Will plan to proceed with this assuming sodium levels remain stable. 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 History of vasectomy Family History Family History Mother Family history of pancreatic cancer Patient's mother is Family history of malignant neoplasm of ovary Father Acute myocardial infarction Sibling Family history of primary malignant neoplasm of liver Family history of malignant neoplasm of kidney Other Family history of malignant neoplasm Social History Social History Social History: Surrogate medical decision maker: Elly Rose, spouse. Code status: Full code. Smoking packs per day: 1 Smoking cigarettes per day: 20.0
[2023-10-24] MEDS: NIACIN SA 500 MG TABLET PO (14:56)
[2023-10-25] VITALS (16 sets, daily range): BP systolic 101–176; BP diastolic 41–84; PULSE 55–73; RESP 10–26; TEMP 36.4–37.2; O2SAT 92–100
--- NOTE | 2023-10-25 06:20 | HP_ITS ---
This report was moved to the correct visit on 10/25/2023. The original report was signed by Feroz Leon MD on 10/25/23619. History and Physical Update Update Date/Time: 10/25/23 06:20 History and Physical has been reviewed, including an updated exam of the patient. There are NO changes in the patient's condition. Risks, benefits, and alternatives have been discussed and questions answered. Patient agrees to proceed with procedure. This report may have been done utilizing a voice recognition system. Attempts have been made to correct errors. However, there may be uncorrected grammatical, spelling, and recognition errors present. Report Initialized date/time: Feroz Leon MD 10/25/23619 Electronically signed by: Feroz Leon MD 10/25/23619 [facility]
--- NOTE | 2023-10-25 06:49 | WPDANESEPPF ---
Anes - Initial Pre Proc Eval Procedure: Operation Date: 10/25/23 07:30 Proposed Procedures p Trans Urethral Resection Bladder Tumor - Feroz Leon MD s Cystoscopy, Retrograde Pyelogram, Gemcitabine Instillation - Feroz Leon MD Date/Time: 10/25/23 06:49 Surgeon: Shasta Starks DO Pre Op Diagnosis: Hyponatremia, Acute kidney Injury Patient Data Age: 88 Gender: M Height: 1.75 m Weight: 100 kg Last Vital Signs Temp 37.2 C 10/25/23 06:00 Pulse 56 L 10/25/23 06:00 Resp 18 10/25/23 06:00 BP 149/63 H 10/25/23 06:00 Pulse Ox 97 10/25/23 06:00 O2 Del Method Room Air 10/24/23 20:00 Allergies Allergy/AdvReac Type Severity Reaction Status Date / Time No Known Allergies Allergy Verified 10/23/23 23:51 Home Medications Medication Instructions Recorded Confirmed Type aspirin 81 mg tablet,delayed 81 mg PO DAILY 11/03/19 10/24/23 History release amlodipine 5 mg tablet 5 mg PO DAILY 10/20/23 10/24/23 History atorvastatin 80 mg tablet 80 mg PO DAILY 10/20/23 10/24/23 History hydralazine 25 mg tablet 25 mg PO TID 10/20/23 10/24/23 History lisinopril 30 mg tablet 30 mg PO BID 10/20/23 10/24/23 History niacin 500 mg tablet 500 mg PO DAILY 10/20/23 10/24/23 History omega 7-ggi-ign-fish oil 900 1 cap PO DAILY 10/20/23 10/24/23 History mg-1,400 mg capsule,delayed release sulfamethoxazole 800 1 tablet PO Q12H #14 tabs 10/21/23 10/24/23 Rx mg-trimethoprim 160 mg tablet (Bactrim DS) Laboratory Tests 10/24/23 07:01 Sodium 129 L mmol/L (137-145) Potassium 4.0 mmol/L (3.4-5.0) Chloride 98 mmol/L (98-107) Carbon Dioxide 25 mmol/L (22-30) Anion Gap 6 L mmol/L (8-16) BUN 19 mg/dL (9-20) Creatinine 1.20 mg/dL (0.7-1.3) Estim Creat Clear Calc 45 ml/min Estimated GFR 57 L (59 - ) Glucose 103 mg/dL (65-110) Calcium 8.4 mg/dL (8.4-10.2) Patient hx anesthesia problems: none Family hx anesthesia problems: none Results Review: All pre-operative results and documents have been reviewed as part of the pre-operative evaluation. 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 History of vasectomy Family History Family History Mother Family history of pancreatic cancer Patient's mother is Family history of malignant neoplasm of ovary Father Acute myocardial infarction Sibling Family history of primary malignant neoplasm of liver Family history of malignant neoplasm of kidney Other Family history of malignant neoplasm Social History Social History Social History: Surrogate medical decision maker: Elly Rose, spouse. Code status: Full code. Smoking packs per day: 1 Smoking cigarettes per day: 20.0 Smoking status: Never smoker Tobacco type: cigarettes Second hand tobacco smoke exposure: No Smoking end date: 08/27/85 Alcohol intake: never Drinks per week: 10 Substance use: never Substance use type: does not use Do You Feel Safe in your Home?: Yes Lack of Transportation: No Lack of Food: Never True Current Housing: I Have Housing Concerned About Future Housing: No Difficulty Paying Gas/Electric Bills: No Difficulty Paying for Meds: No Currently Unemployed: No Education: Decline to Answer Difficulty w/ Childcare or Family Care:
[2023-10-25 07:04] LABS: Hematocrit 37.4 % (42.0-52.0); Hemoglobin 12.4 g/dL (14.0-18.0); Mean Corpuscular HGB Conc 33.2 g/dl (32-36); Mean Corpuscular Hemoglobin 31.9 pg (26-34); Mean Corpuscular Volume 96.1 fl (80-100); Mean Platelet Volume 9.3 fl (7.4-10.4); Platelet Count Result 196 k/mm3 (150-375); Red Blood Count 3.89 M/mm3 (4.6-6.20); Red Cell Distribution Width 13.3 % (11.5-14.5); White Blood Count 6.1 K/mm3 (4.5-10.0)
[2023-10-25 07:14] LABS: Anion Gap 1 mmol/L (8-16); Blood Urea Nitrogen 15 mg/dL (9-20); Calcium 8.9 mg/dL (8.4-10.2); Carbon Dioxide 30 mmol/L (22-30); Chloride 103 mmol/L (98-107); Estimated CRCL calculation 49 ml/min; Estimated Glomerular Filt Rate > 60; Glucose 111 mg/dL (65-110); Potassium 4.9 mmol/L (3.4-5.0); Sodium 134 mmol/L (137-145)
--- NOTE | 2023-10-25 07:31 | WPDHPUPDATE1 ---
History and Physical Update Update Date/Time: 10/25/23 07:31 History and Physical has been reviewed, including an updated exam of the patient. There are NO changes in the patient's condition. Risks, benefits, and alternatives have been discussed and questions answered. Patient agrees to proceed with procedure.
[2023-10-25] MEDS: ceFAZolin 2 GM/D5W 50 ML 2 GM/50 ML BAG IVPB (07:34)
[2023-10-25] MEDS: LIDOCAINE HCL 2% GEL UROJET 10 ML PKG MUCOUS MEM (07:50)
--- NOTE | 2023-10-25 08:09 | P.OP_ITS ---
Procedure Note - Detailed Date of Procedure 10/25/23 Pre-op Diagnosis Hematuria, bladder neoplasm Post-op Diagnosis Same Procedure Performed Cystoscopy, TURBT ( small, 2 cm), bladder biopsy Surgeon Feroz Leon MD Anesthesia General Findings 1. Unusual, possible papillary neoplastic growth in bladder trigone (2cm) 2. Diffuse patchy hyperemia throughout remainder of bladder - uncertain etiology (inflammation vs.CIS) Description of Procedure patient brought the op suite where he has prepped draped in routine sterile fashion dorsal lithotomy position after the uneventful induction of a general LMA anesthetic. Twenty-four F resectoscope was placed in his bladder. There was no urethral stricture with moderate lateral lobe hyperplasia prostate. There was no median lobe of the prostate. Prostatic urethra measures 2.5 cm. The bladder shows unusual mucosa throughout. There is a papillary lesion in left eva trigone that very possibly may be neoplastic. I resected that in its entirety and cauterized the base stent periphery. Remainder of the bladder has patchy hyperemia suggestive of either inflammation or carcinoma in Situ. I biopsied 2 sites that hyperemia. The base and periphery of those sites were likewise cauterized. The resectoscope was removed and a 22 F hematuria catheter was placed to continuous irrigation. It should be noted the patient had normal upper tract imaging with a CT scan abdomen pelvis with without contrast re cently. Urine Output 550 Drains Yes Pathology Yes Complications No immediate complications Condition Stable
[2023-10-25] MEDS: LACTATED RINGERS 1,000 ML 30 ML IV CONT (08:16)
[2023-10-25] MEDS: SODIUM CHLORIDE 0.9% IV 23.7 ML, GEMCITABINE HCL 1,000 MG BLADDER ×2 (08:30→08:35)
--- NOTE | 2023-10-25 08:41 | W.PM.PROC2 ---
Procedure Note - Detailed Date of Procedure 10/25/23 Pre-op Diagnosis Gross hematuria bladder neoplasm Post-op Diagnosis Same Procedure Performed Gemcitabine installation Surgeon Feroz Leon MD Anesthesia General Description of Procedure With the patient in the supine position, a 16F Lawton catheter is placed using sterile technique. Using a protective facemask, gown and double layer of gloves Gemcitabine 2gm in 100cc saline is administered through the catheter/into the bladder. The catheter is then plugged. Patient was instructed to lie supine x20min, then to roll both the left and right x20 min. each. Total dwell time will be 60 min., after which the bladder will be drained and catheter removed. Urine Output 550
[2023-10-25] MEDS: amLODIPine BESYLATE 5 MG TABLET PO (12:54)
[2023-10-25] MEDS: NIACIN SA 500 MG TABLET PO (12:54)
[2023-10-25] MEDS: ATORVASTATIN 40 MG TABLET 80 MG PO (12:55)
[2023-10-25] MEDS: OMEGA 3 POLYUNSAT FATTY ACIDS 1 GM CAP PO (12:55)
[2023-10-25] MEDS: hydrALAZINE HCL 25 MG TABLET PO ×2 (12:55→18:29)
--- NOTE | 2023-10-25 17:49 | PM.IMPN ---
Progress Note: A&P Assessment and Plan (1) Acute hyponatremia: Code(s): E87.1 - Hypo-osmolality and hyponatremia Status: Acute Assessment and Plan: Suspect secondary to medication -patient with history of home Bactrim use -continue to monitor BMP -strict I&O -hold p.o. lisinopril, until scheduled urologic procedure (2) Acute kidney injury: Code(s): N17.9 - Acute kidney failure, unspecified Status: Acute Assessment and Plan: -continue to monitor for hematuria -hgb is stable at this time (3) Urinary retention due to benign prostatic hyperplasia: Code(s): N40.1 - Benign prostatic hyperplasia with lower urinary tract symptoms; R33.8 - Other retention of urine Status: Acute (4) Gross hematuria: Code(s): R31.0 - Gross hematuria Status: Acute Plan Continue home medications: Hold home medication lisinopril, may resume after scheduled procedure tomorrow VTE Prophylaxis: SCDs DIET: NPO after midnight Anticipated hospital stay: > 1 day 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 ? patient had been admitted to the hospital 10/20/2023 through 10/22/2023 due to urinary retention and gross hematuria.? And three-way Lawton catheter placed and his urine eventually cleared.? The patient was discharged home on Lawton catheter.? His hematuria was thought to be due to a likely bladder tumor and he was scheduled for outpatient cystoscopy on the .? He was also treated for possible UTI with Bactrim.? However patient's urine culture returned negative.? ? He reports that he was continuing his course of Bactrim.? He was not having any nausea, vomiting, headaches, weakness or confusion.? On arrival to the ER labs demonstrated hyponatremia and acute kidney injury.? Patient reports his urine output is been stable and steady and urine is not changed? in appearance until yesterday when he noticed frankly bloody urine.? He did not notice any blood clots in his urine.? He felt the abdomen slow been more distended than usual.? He has not had any fevers or chills. Interval Hx: 10/24:??Patient seen this a.m. he denies any overnight complaints, patient was recently admitted 10/20-, for the retention and gross hematuria, patient with the CBI which is draining clear yellow urine, patient is scheduled for cystoscopy with TURBT and gemcitabine installation with Dr. Leon. : pt seen this a.m s/p: Cystoscopy, TURBT ( small, 2 cm), bladder biopsy, he denies any complaints at this time, no complications during procedure. Lawton catheter in place, patent with yellow urine. Objective Data Vital Signs Vital Signs: Vital Signs - 24 hr 10/24/23 21:40 10/24/23 20:00 10/25/23 06:00 Temperature 98.6 F 98.9 F Pulse Rate 55 L 56 L Respiratory Rate 13 18 Blood Pressure 135/57 L 149/63 H Pulse Oximetry 95 95 97 Oxygen Delivery Room Air Oxygen Flow Rate 10/25/23 07:00 10/25/23 08:16 10/25/23 08:30 Temperature 98.6 F 97.8 F Pulse Rate 58 L 56 L 63 Respiratory Rate 14 10 L 18 Blood Pressure 158/57 H 156/84 H 124/41 L Pulse Oximetry 97 100 100 Oxygen Delivery Room Air Simple Face Mask Simple Face Mask Oxygen Flow Rate 8 8 10/25/23 08:45 10/25/23 09:00 10/25/23 09:15 Temperature Pulse Rate 62 70 73 Respiratory Rate 20 20 20 Blood Pressure 157/58 H 176/84 H 141/57 H Pulse Oximetry 94 100 100 Oxygen Delivery Nasal Cannula Nasal Cannula Nasal Cannula Oxygen Flow Rate 3 2 2 10/25/23 09:30 10/25/23 09:45 10/25/23 10:00 Temperature Pulse Rate 55 L 63 55 L Respiratory Rate 16 16 16 Blood Pressure 146/61 H 164/41 H 153/52 H Pulse Oximetry 100 100 98 Oxygen Delivery Nasal Cannula Nasal Cannula Nasal Cannula Oxygen Flow Rate 2 2 2
[2023-10-26 05:02] VITALS: BP 136/52; PULSE 60; RESP 18; TEMP 36.4; O2SAT 95
--- NOTE | 2023-10-26 06:42 | WPDUROPN2 ---
Progress Note: A&P Assessment and Plan (1) Urothelial lesion: Code(s): N39.8 - Other specified disorders of urinary system Status: Acute (2) Acute hyponatremia: Code(s): E87.1 - Hypo-osmolality and hyponatremia Status: Acute Assessment and Plan: Urine clear on slow CBI Will stop CBI / voiding trial later this morning if urine remains clear Await bladder pathology - will f/u with pt. next week when available Subjective Subjective Date/Time Seen: 10/26/23 06:42 Interval history: Comfortable Urine clear Review of Systems Cardiovascular: Cardiovascular: Denies chest pain, Denies lightheadedness, Denies palpitations and Denies dyspnea Respiratory: Respiratory: Denies dyspnea Gastrointestinal: Gastrointestinal: Denies diarrhea, Denies nausea and Denies vomiting Genitourinary: Genitourinary: Denies hematuria and Denies dysuria Endocrine: Endocrine: Denies palpitations Exam Const: General: no acute distress Resp: Effort & Inspection: normal respiratory effort GI: Inspection: non-distended GI Palp: No abdominal tenderness and No Guarding due to palpation present (GI) Auscultation: normal bowel sounds Urinary Catheter: Urinary Catheter: patent and draining and urine clear Objective Data Vital Signs Vital Signs: Vital Signs - 24 hr 10/25/23 07:00 10/25/23 08:16 10/25/23 08:30 Temperature 98.6 F 97.8 F Pulse Rate 58 L 56 L 63 Respiratory Rate 14 10 L 18 Blood Pressure 158/57 H 156/84 H 124/41 L Pulse Oximetry 97 100 100 Oxygen Delivery Room Air Simple Face Mask Simple Face Mask Oxygen Flow Rate 8 8 10/25/23 08:45 10/25/23 09:00 10/25/23 09:15 Temperature Pulse Rate 62 70 73 Respiratory Rate 20 20 20 Blood Pressure 157/58 H 176/84 H 141/57 H Pulse Oximetry 94 100 100 Oxygen Delivery Nasal Cannula Nasal Cannula Nasal Cannula Oxygen Flow Rate 3 2 2 10/25/23 09:30 10/25/23 09:45 10/25/23 10:00 Temperature Pulse Rate 55 L 63 55 L Respiratory Rate 16 16 16 Blood Pressure 146/61 H 164/41 H 153/52 H Pulse Oximetry 100 100 98 Oxygen Delivery Nasal Cannula Nasal Cannula Nasal Cannula Oxygen Flow Rate 2 2 2 10/25/23 10:15 10/25/23 10:30 10/25/23 12:53 Temperature Pulse Rate 58 L 58 L 65 Respiratory Rate 14 16 Blood Pressure 137/76 155/61 H 150/50 H Pulse Oximetry 98 98 94 Oxygen Delivery Nasal Cannula Nasal Cannula Oxygen Flow Rate 2 2 10/25/23 17:38 10/25/23 12:55 10/25/23 20:18 Temperature 97.6 F Pulse Rate 67 Respiratory Rate 26 H Blood Pressure 124/44 L 145/61 H Pulse Oximetry 92 Oxygen Delivery Room Air Oxygen Flow Rate 10/25/23 23:45 10/26/23 05:02 Temperature 97.9 F 97.6 F Pulse Rate 58 L 60 Respiratory Rate 18 18 Blood Pressure 101/76 136/52 L Pulse Oximetry 95 95 Oxygen Delivery Oxygen Flow Rate Intake/Output Intake/Output: Intake & Output 10/23/23 10/24/23 10/25/23 10/26/23 23:59 23:59 23:59 23:59 Intake Total 1346 1645 Output Total 2450 70805 590 Balance -1104 -9855 -590 Meds/Results Medications: Active Medications Generic Name Dose Route Start Last Admin Trade Name Nathanq PRN Reason Stop Dose Admin Amlodipine Besylate 5 mg 10/24/23 09:00 10/25/23 12:54 Amlodipine Besylate 5 Mg Tablet PO 5 mg DAILY GINI Administration Aspirin 81 mg 10/24/23 09:00 Aspirin 81 Mg Enteric Tablet PO DAILY [facility] Atorvastatin Calcium 80 mg 10/24/23 09:00 10/25/23 12:55 Atorvastatin 40 Mg Tablet PO 80 mg DAILY GINI Administration Fish Oil 1 gm 10/24/23 09:00 10/25/23 12:55 Louann 3 Polyunsat Fatty Acids 1 Gm Cap PO 1 gm DAILY GINI Administration Hydralazine HCl 25 mg 10/24/23 09:00 10/25/23 18:29 Hydralazine Hcl 25 Mg Tablet PO 25 mg TID GINI Administration Lisinopril 30 mg 10/24/23 09:00 10/25/23 18:01 Lisinopril 10 Mg Tablet PO Not Given BID GINI Niacin 500 mg 10/24/23 13:45 10/25/23 12:54 Niacin Sa 500 Mg Tablet PO 50
[2023-10-26 07:03] LABS: Basophils Percent Auto 0.3 % (0.2-1.2); Eosinophils Percent Auto 0.3 % (0-4.4); Hematocrit 36.8 % (42.0-52.0); Hemoglobin 11.8 g/dL (14.0-18.0); Immature Granulocyte Absolute 0.01 K/mm3 (0.00-0.031); Immature Granulocyte Percent A 0.2 % (0-0.5); Lymphocytes Absolute Auto 0.96 K/mm3 (0.9-3.2); Lymphocytes Percent Auto 15.6 % (18.3-44.2); Mean Corpuscular HGB Conc 32.1 g/dl (32-36); Mean Corpuscular Hemoglobin 31.2 pg (26-34); Mean Corpuscular Volume 97.4 fl (80-100); Mean Platelet Volume 9.6 fl (7.4-10.4); Monocytes Absolute Auto 0.6 K/mm3 (0.1-0.6); Monocytes Percent Auto 10.1 % (2.6-8.5); Neutrophils Absolute Auto 4.5 K/mm3 (1.3-6.7); Neutrophils Percent Auto 73.5 % (45.5-73.1); Platelet Count Result 224 k/mm3 (150-375); Red Blood Count 3.78 M/mm3 (4.6-6.20); Red Cell Distribution Width 13.3 % (11.5-14.5); White Blood Count 6.1 K/mm3 (4.5-10.0)
[2023-10-26 07:17] LABS: Alanine Aminotransferase 20 U/L (6-50); Albumin Level 3.3 g/dL (3.5-5.1); Alkaline Phosphatase 65 U/L (38-126); Anion Gap 1 mmol/L (8-16); Aspartate Amino Transferase 36 U/L (17-59); Bilirubin,Total 0.9 mg/dL (0.2-1.3); Blood Urea Nitrogen 24 mg/dL (9-20); Calcium 8.4 mg/dL (8.4-10.2); Carbon Dioxide 27 mmol/L (22-30); Chloride 105 mmol/L (98-107); Estimated CRCL calculation 59 ml/min; Estimated Glomerular Filt Rate > 60; Glucose 107 mg/dL (65-110); Potassium 4.1 mmol/L (3.4-5.0); Sodium 133 mmol/L (137-145)
[2023-10-26] MEDS: OMEGA 3 POLYUNSAT FATTY ACIDS 1 GM CAP PO (08:45)
[2023-10-26] MEDS: lisinopriL 10 MG TABLET 30 MG PO (08:45)
[2023-10-26] MEDS: NIACIN SA 500 MG TABLET PO (08:45)
[2023-10-26] MEDS: amLODIPine BESYLATE 5 MG TABLET PO (08:45)
[2023-10-26] MEDS: ATORVASTATIN 40 MG TABLET 80 MG PO (08:46)
[2023-10-26] MEDS: hydrALAZINE HCL 25 MG TABLET PO ×2 (08:46→13:17)
--- NOTE | 2023-10-26 12:59 | PM.DS ---
DS: Admitting Diagnosis Discharge Date 10/26/2023 Admitting Diagnosis Hyponatremia TRENT Hematuria DS: Discharge Diagnosis Discharge Diagnosis (1) Urothelial lesion: Code(s): N39.8 - Other specified disorders of urinary system Status: Acute (2) Acute hyponatremia: Code(s): E87.1 - Hypo-osmolality and hyponatremia Status: Acute (3) Acute kidney injury: Code(s): N17.9 - Acute kidney failure, unspecified Status: Acute (4) Urinary retention due to benign prostatic hyperplasia: Code(s): N40.1 - Benign prostatic hyperplasia with lower urinary tract symptoms; R33.8 - Other retention of urine Status: Acute (5) Hyperlipidemia: Code(s): E78.5 - Hyperlipidemia, unspecified Status: Acute (6) Gross hematuria: Code(s): R31.0 - Gross hematuria Status: Acute (7) Coronary artery disease: Code(s): I25.10 - Atherosclerotic heart disease of [place] coronary artery without angina pectoris Status: Acute (8) Hypertension: Code(s): I10 - Essential (primary) hypertension Status: Acute DS: Summary Hospital Course Reason for hospitalization: ?88-year-old male with a past medical history of BPH, hypertension, and coronary disease who presented to the ER due to hematuria. Hospital Course: ?patient had been admitted to the hospital 10/20/2023 through 10/22/2023 due to urinary retention and gross hematuria.? And three-way Lawton catheter placed and his urine eventually cleared.? The patient was discharged home on Lawton catheter.? His hematuria was thought to be due to a likely bladder tumor and he was scheduled for outpatient cystoscopy on the .? He was also treated for possible UTI with Bactrim.? However patient's urine culture returned negative.? ? He reports that he was continuing his course of Bactrim.? He was not having any nausea, vomiting, headaches, weakness or confusion.? On arrival to the ER labs demonstrated hyponatremia and acute kidney injury.? Patient reports his urine output is been stable and steady and urine is not changed? in appearance until yesterday when he noticed frankly bloody urine.? He did not notice any blood clots in his urine.? He felt the abdomen slow been more distended than usual.? He has not had any fevers or chills. Interval Hx: 10/24:??Patient seen this a.m. he denies any overnight complaints, patient was recently admitted 10/20-, for the retention and gross hematuria, patient with the CBI which is draining clear yellow urine, patient is scheduled for cystoscopy with TURBT and gemcitabine installation with Dr. Leon. :?pt seen this a.m s/p:? Cystoscopy, TURBT ( small, 2 cm), bladder biopsy, he denies any complaints at this time, no complications during procedure.? Lawton catheter in place, patent with yellow urine. 10/25: Patient seen this morning, he is in the bed in no acute distress, both by the bedside he denies any overnight events, he reports being able to urinate since his Lawton was removed, he denies any abdominal pain nausea vomiting fever chills. Status at Discharge Functional status at discharge: independent ambulation Overall status at discharge: patient is progressing back to baseline Time Spent with Patient Time attestation: Total time spent providing and/or coordinating discharge services: Time spent: Less than 30 minutes Exam Narrative: General: Awake, alert, comfortable, no acute distress HEENT: Normocephalic, atraumatic, sclerae anicteric Respiratory: Normal respiratory effort, no accessory muscle use Abdomen: Nondistended, soft, nontender : Lawton catheter has been DCd Skin: Normal coloration, warm and dry Neurologic: No focal neuro deficits noted Psychiatric: Appropriate mood and affect, judgment and insight intact DS: Data Data Completed and Pending Pending studies at discharge: Pending at discharge 10/25/23 07:58 Surgical [PTH] Routine Surgical [PTH] Routine Surgical [PT
== END 2023-10-26 14:05 | disposition home health service (06) ==
LOC: ANHED 10-24 02:19 → ANH3MEDSUR 10-24 04:30
PROVIDERS: Nurse Practitioner; Preventive Medicine Aerospace Medicine; Urology; Admitting Provider Internal Medicine; Emergency Provider Emergency Medicine; PCP Emergency Medicine; Visit Provider Internal Medicine
PROC: 0TBB8ZZ Excision of Bladder, Via Natural or Artificial Opening Endoscopic (ICD-10-PCS; CPT 52234; principal; 2023-10-25 07:30)
PROC: (CPT 52352; 2023-10-25 07:30)
DX: N30.21 Other chronic cystitis with hematuria (principal); E87.1 Hypo-osmolality and hyponatremia; N17.9 Acute kidney failure, unspecified; N40.1 Benign prostatic hyperplasia with lower urinary tract symptoms; R33.8 Other retention of urine; Z96.0 Presence of urogenital implants; I25.10 Atherosclerotic heart disease of native coronary artery without angina pectoris; Z95.1 Presence of aortocoronary bypass graft; E78.5 Hyperlipidemia, unspecified; E55.9 Vitamin D deficiency, unspecified; I10 Essential (primary) hypertension; Z87.891 Personal history of nicotine dependence; Z79.82 Long term (current) use of aspirin; Z79.899 Other long term (current) drug therapy
CPT/HCPCS: 52234; 36415; 51702; 51720; 80048; 80053; 81001; 82570; 84300; 85025; 85027; 85610; 87086; 88305; 88342; 96365; 99283; 99285; A9270; C1769; G0378; J0690; J1100; J2405; J2704; J3010; J7120; J9201

== ENCOUNTER 2023-10-26 20:49 | Emergency (ER) | payer OTHER, SELFPAY ==
[2023-10-26 20:52] VITALS: BP 140/71; PULSE 67; RESP 18; TEMP 37; O2SAT 98
--- NOTE | 2023-10-26 22:13 | ED.GENADULT ---
HPI - General Adult General Chief complaint: Urogenital-Male Stated complaint: cannot urinate- bladder sx yest Time Seen by Provider: 10/26/23 21:07 History of Present Illness HPI narrative: Patient is a 88-year-old gentleman who presents emergency department chief complaint of urinary retention. The patient reports he was just in the hospital had a procedure on his bladder and had a catheter removed the patient reports he is able to urinate until approximately 4:00 p.m. reports he has been able to start a stream since then. Patient reports that he has the intense sensation that he has to urinate without being able to start strain. Related Data Home Medications Medication Instructions Recorded Confirmed aspirin 81 mg tablet,delayed 81 mg PO DAILY 11/03/19 10/24/23 release amlodipine 5 mg tablet 5 mg PO DAILY 10/20/23 10/24/23 atorvastatin 80 mg tablet 80 mg PO DAILY 10/20/23 10/24/23 hydralazine 25 mg tablet 25 mg PO TID 10/20/23 10/24/23 lisinopril 30 mg tablet 30 mg PO BID 10/20/23 10/24/23 niacin 500 mg tablet 500 mg PO DAILY 10/20/23 10/24/23 omega 8-uah-rco-fish oil 900 1 cap PO DAILY 10/20/23 10/24/23 mg-1,400 mg capsule,delayed release Allergies Allergy/AdvReac Type Severity Reaction Status Date / Time No Known Allergies Allergy Verified 10/26/23 20:55 Review of Systems Review of Systems: A 10 system review of systems was completed on the patient and is negative except for what is stated in the HPI. Nursing and ancillary documentation was reviewed. 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 History of vasectomy Family History Family History Mother Family history of pancreatic cancer Patient's mother is Family history of malignant neoplasm of ovary Father Acute myocardial infarction Sibling Family history of primary malignant neoplasm of liver Family history of malignant neoplasm of kidney Other Family history of malignant neoplasm Social History Social History Social History: Surrogate medical decision maker: Elly Rose, spouse. Code status: Full code. Smoking packs per day: 1 Smoking cigarettes per day: 20.0 Smoking status: Never smoker Tobacco type: cigarettes Second hand tobacco smoke exposure: No Smoking end date: 08/27/85 Alcohol intake: never Drinks per week: 10 Substance use: never Substance use type: does not use Do You Feel Safe in your Home?: Yes Lack of Transportation: No Lack of Food: Never True Current Housing: I Have Housing Concerned About Future Housing: No Difficulty Paying Gas/Electric Bills: No Difficulty Paying for Meds: No Currently Unemployed: No Education: Decline to Answer Difficulty w/ Childcare or Family Care: No Living arrangements: with family Occupation/Education: retired Spiritual care concerns: No Exam Narrative: GENERAL: Well-appearing, well-nourished, and in no acute distress. HEAD: Normocephalic, atraumatic. EYES: PERRLA and EOMI. ENT: Nares clear, no rhinorrhea or epistaxis. Mucous membranes moist. NECK: Supple. CHEST: Clear to auscultation. No respiratory distress. HEART: Regular rate and rhythm. No murmur heard. Normal peripheral pulses. ABDOMEN: Soft, nontender, nondistended, normal active bowel sounds. EXTREMITIES
== END 2023-10-26 22:34 | disposition home or self-care (01) ==
PROVIDERS: Emergency Provider Emergency Medicine; PCP Emergency Medicine
DX: R33.9 Retention of urine, unspecified (principal); I25.10 Atherosclerotic heart disease of native coronary artery without angina pectoris; E78.5 Hyperlipidemia, unspecified; I10 Essential (primary) hypertension; F17.210 Nicotine dependence, cigarettes, uncomplicated; Z79.82 Long term (current) use of aspirin; Z79.899 Other long term (current) drug therapy
CPT/HCPCS: 51702; 99283

== ENCOUNTER 2023-11-05 17:44 | Emergency (ER) | payer OTHER, SELFPAY ==
[2023-11-05 17:47] VITALS: BP 140/57; PULSE 108; RESP 20; TEMP 36.4; O2SAT 96
[2023-11-05 19:06] LABS: Appearance Urine Cloudy (Clear); Bacteria Urine None Seen /hpf; Bilirubin Urine 1+ (Negative); Blood Urine 3+ (Negative); Color Urine Red (Yellow); Glucose Urine UA Trace mg/dL (Negative); Ketones Urine Negative (Negative); Leukocyte Esterase Ur 1+ LEU/UL (Negative); Need Manual Microscopic Reviewed; Nitrate Urine Negative (Negative); Protein Urine 4+ mg/dL (Negative); RBC Urine >100 /hpf (0-2); Specific Grav Ur 1.013 (1.001-1.035); Squamous Epithelial Cell Urine Few /hpf (Few); Urobilinogen Urine 0.2 mg/dL (<2.0); WBC Urine 21-50 /hpf; pH Urine 6.5 (5.0-9.0)
[2023-11-05 19:10] LABS: Add Urine Microscopic? YES
--- NOTE | 2023-11-05 20:07 | ED.MALEGU ---
HPI - Male Genitourinary General Chief complaint: Urogenital-Male Stated complaint: urinary retention Time Seen by Provider: 11/05/23 18:18 History of Present Illness HPI Narrative: 88-year-old male presenting with urinary retention. States that he had his urinary catheter removed earlier and passed a voiding trial. Unfortunately he then was unable to urinate again. Developed abdominal pain and pressure so came in for evaluation. No further complaints. Related Data Home Medications Medication Instructions Recorded Confirmed aspirin 81 mg tablet,delayed 81 mg PO DAILY 11/03/19 10/24/23 release amlodipine 5 mg tablet 5 mg PO DAILY 10/20/23 10/24/23 atorvastatin 80 mg tablet 80 mg PO DAILY 10/20/23 10/24/23 hydralazine 25 mg tablet 25 mg PO TID 10/20/23 10/24/23 lisinopril 30 mg tablet 30 mg PO BID 10/20/23 10/24/23 niacin 500 mg tablet 500 mg PO DAILY 10/20/23 10/24/23 omega 1-owg-ido-fish oil 900 1 cap PO DAILY 10/20/23 10/24/23 mg-1,400 mg capsule,delayed release Allergies Allergy/AdvReac Type Severity Reaction Status Date / Time No Known Allergies Allergy Verified 10/26/23 20:55 Review of Systems Review of Systems: All systems reviewed & are unremarkable except as noted in HPI and below PMFSH Past Medical History Medical History Arthritis Benign prostatic hyperplasia Coronary artery disease Hearing loss Hemorrhoids Hyperlipidemia Hypertension Peptic ulcer Shingles Vitamin D deficiency Surgical History Surgical History History of arthroscopy of both knees History of colonoscopy with polypectomy 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 History of vasectomy Family History Family History Mother Family history of pancreatic cancer Patient's mother is Family history of malignant neoplasm of ovary Father Acute myocardial infarction Sibling Family history of primary malignant neoplasm of liver Family history of malignant neoplasm of kidney Other Family history of malignant neoplasm Social History Social History Social History: Surrogate medical decision maker: Elly Rose, spouse. Code status: Full code. Smoking packs per day: 1 Smoking cigarettes per day: 20.0 Smoking status: Never smoker Tobacco type: cigarettes Second hand tobacco smoke exposure: No Smoking end date: 08/27/85 Alcohol intake: never Drinks per week: 10 Substance use: never Substance use type: does not use Do You Feel Safe in your Home?: Yes Lack of Transportation: No Lack of Food: Never True Current Housing: I Have Housing Concerned About Future Housing: No Difficulty Paying Gas/Electric Bills: No Difficulty Paying for Meds: No Currently Unemployed: No Education: Decline to Answer Difficulty w/ Childcare or Family Care: No Living arrangements: with family Occupation/Education: retired Spiritual care concerns: No Exam Narrative: GENERAL: nontoxic, in no acute distress HEAD: Normocephalic, atraumatic. EYES: PERRLA and EOMI. ENT: grossly unremarkable. NECK: Supple. CHEST: No respiratory distress. HEART: Regular rate and rhythm ABDOMEN: Soft, nontender, nondistended; urinary catheter in place EXTREMITIES: Normal range of motion. SKIN: Warm, dry, no rash. NEURO: Alert and oriented x3. PSYCH: Normal mood and affect. Course Vital Signs Vital signs: Vital Signs Temperature 97.6 F 11/05/23 17:47 Pulse Rate 108 H 11/05/23 17:47 Respiratory Rate 20 11/05/23 17:47 Blood Pressure 140/57 L 11/05/23 17:47 Pulse Oximetry 96 11/05/23 17:47 Oxygen Delivery Room Air 11/05/23 17:47 Temperatur
== END 2023-11-05 20:22 | disposition home or self-care (01) ==
PROVIDERS: Physician Assistant; Emergency Provider Emergency Medicine; PCP Emergency Medicine
DX: R33.9 Retention of urine, unspecified (principal); R31.9 Hematuria, unspecified; I25.10 Atherosclerotic heart disease of native coronary artery without angina pectoris; I10 Essential (primary) hypertension; E78.5 Hyperlipidemia, unspecified; E55.9 Vitamin D deficiency, unspecified; N40.0 Benign prostatic hyperplasia without lower urinary tract symptoms; M19.90 Unspecified osteoarthritis, unspecified site; Z87.11 Personal history of peptic ulcer disease; Z87.891 Personal history of nicotine dependence; Z95.1 Presence of aortocoronary bypass graft; Z89.022 Acquired absence of left finger(s); Z79.82 Long term (current) use of aspirin
CPT/HCPCS: 51702; 81001; 87086; 99283

== ENCOUNTER 2023-11-13 19:31 | Emergency (ER) | payer OTHER, SELFPAY ==
[2023-11-13 19:41] VITALS: BP 90/72; PULSE 52; RESP 18; TEMP 36.4; O2SAT 99
--- NOTE | 2023-11-13 20:35 | ED.GENADULT ---
HPI - General Adult General Chief complaint: Urogenital-Male Stated complaint: urinary retention Time Seen by Provider: 11/13/23 20:18 History of Present Illness HPI narrative: Patient is a 88-year-old gentleman who presents emergency department with chief complaint of inability to urinate. Patient reports he had a catheter removed this morning about 8 or 9:00 a.m. in the morning and reports that he was able to urinate initially but then since 4:00 p.m. has not been able to urinate. The patient states he has had catheters intermittently for several weeks the patient reports that he had a urine culture done this morning Related Data Home Medications Medication Instructions Recorded Confirmed aspirin 81 mg tablet,delayed 81 mg PO DAILY 11/03/19 10/24/23 release amlodipine 5 mg tablet 5 mg PO DAILY 10/20/23 10/24/23 atorvastatin 80 mg tablet 80 mg PO DAILY 10/20/23 10/24/23 hydralazine 25 mg tablet 25 mg PO TID 10/20/23 10/24/23 lisinopril 30 mg tablet 30 mg PO BID 10/20/23 10/24/23 niacin 500 mg tablet 500 mg PO DAILY 10/20/23 10/24/23 omega 9-ejt-mgi-fish oil 900 1 cap PO DAILY 10/20/23 10/24/23 mg-1,400 mg capsule,delayed release Allergies Allergy/AdvReac Type Severity Reaction Status Date / Time No Known Allergies Allergy Verified 10/26/23 20:55 Review of Systems Review of Systems: A 10 system review of systems was completed on the patient and is negative except for what is stated in the HPI. Nursing and ancillary documentation was reviewed. 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 History of vasectomy Family History Family History Mother Family history of pancreatic cancer Patient's mother is Family history of malignant neoplasm of ovary Father Acute myocardial infarction Sibling Family history of primary malignant neoplasm of liver Family history of malignant neoplasm of kidney Other Family history of malignant neoplasm Social History Social History Social History: Surrogate medical decision maker: Elly Rose, spouse. Code status: Full code. Smoking packs per day: 1 Smoking cigarettes per day: 20.0 Smoking status: Never smoker Tobacco type: cigarettes Second hand tobacco smoke exposure: No Smoking end date: 08/27/85 Alcohol intake: never Drinks per week: 10 Substance use: never Substance use type: does not use Do You Feel Safe in your Home?: Yes Lack of Transportation: No Lack of Food: Never True Current Housing: I Have Housing Concerned About Future Housing: No Difficulty Paying Gas/Electric Bills: No Difficulty Paying for Meds: No Currently Unemployed: No Education: Decline to Answer Difficulty w/ Childcare or Family Care: No Living arrangements: with family Occupation/Education: retired Spiritual care concerns: No Exam Narrative: GENERAL: Well-appearing, well-nourished, and in no acute distress. HEAD: Normocephalic, atraumatic. EYES: PERRLA and EOMI. ENT: Nares clear, no rhinorrhea or epistaxis. Mucous membranes moist. NECK: Supple. CHEST: Clear to auscultation. No respiratory distress. HEART: Regular rate and rhythm. No murmur heard. Normal peripheral pulses. ABDOMEN: Soft, nontender, nondistended, normal active bowel sounds. EXTREMITIES: Normal rang
--- NOTE | 2023-11-13 20:41 | PC.NURSE ---
Pt to ed with c/o being unable to void since gonzalez removed this am. Gonzalez cath placed by this rn and immediate 225ml of urine produced. Pt feels relief and stated pain is almost completely gone now.
[2023-11-13 21:08] VITALS: BP 146/86; PULSE 90; RESP 18; O2SAT 99
== END 2023-11-13 21:09 | disposition home or self-care (01) ==
LOC: ANHED 20:45
PROVIDERS: Emergency Provider Emergency Medicine; PCP Emergency Medicine
DX: N40.1 Benign prostatic hyperplasia with lower urinary tract symptoms (principal); R33.8 Other retention of urine; I25.10 Atherosclerotic heart disease of native coronary artery without angina pectoris; I10 Essential (primary) hypertension; E78.5 Hyperlipidemia, unspecified; E55.9 Vitamin D deficiency, unspecified; M19.90 Unspecified osteoarthritis, unspecified site; Z87.11 Personal history of peptic ulcer disease; Z95.1 Presence of aortocoronary bypass graft; Z87.891 Personal history of nicotine dependence; Z89.022 Acquired absence of left finger(s); Z79.82 Long term (current) use of aspirin
CPT/HCPCS: 51702; 99283

== ENCOUNTER 2024-02-06 10:13 | Emergency (ER) | payer OTHER, SELFPAY ==
[2024-02-06] VITALS (34 sets, daily range): BP systolic 131–180; BP diastolic 42–164; PULSE 42–65; RESP 12–22; TEMP 37.2; O2SAT 95–100
--- NOTE | ~2024-02-06 | XR_ITS ---
EXAMINATION: XR chest 2V DATE: 02/06/2024 11:06 INDICATION: Chest pain TECHNIQUE: PA and lateral views of the chest were obtained. COMPARISON: Chest radiograph and CT dated 06/20/2023 FINDINGS: Mild left basilar opacities which could represent atelectasis or pneumonia. No other airspace opaciti es, pulmonary edema, pleural effusion or pneumothorax. Mild cardiomegaly. Median sternotomy wires, os tial markers and mediastinal surgical clips consistent with prior coronary artery bypass grafting. En largement of the central pulmonary arteries consistent with pulmonary arterial hypertension. Calcifie d left hilar and mediastinal lymph nodes consistent with old granulomatous disease. Osseous bridging between the anterior left first and second ribs. IMPRESSION: 1. Mild right basilar opacities which could represent atelectasis or pneumonia. 2. Cardiomegaly and enlargement central pulmonary arteries consistent with pulmonary arterial hyperte nsion. Reviewed, dictated and finalized at location A. IMPRESSION: 1. Mild right basilar opacities which could represent atelectasis or pneumonia. 2. Cardiomegaly and enlargement central pulmonary arteries consistent with pulm onary arterial hypertension.
--- NOTE | 2024-02-06 10:23 | ECG_ITS ---
Test Date: 2024-02-06 10:25:38 Measurements Intervals [place] Rate: 55 P: 60 ND: 181 QRS: -10 QRSD: 101 T: 51 QT: 469 QTc: 449 Interpretive Statements SINUS BRADYCARDIA WITH FREQUENT VENTRICULAR PREMATURE COMPLEXES IN A BIGEMINAL PATTERN No previous ECG available for comparison Electronically Signed On 02-06-2024 11:39:09 CDT by Audra Ryan M.D.
[2024-02-06 10:43] LABS: Basophils Percent Auto 0.6 % (0.2-1.2); Eosinophils Absolute Auto 0.2 K/mm3 (0-0.3); Eosinophils Percent Auto 3.1 % (0-4.4); Hematocrit 41.7 % (42.0-52.0); Hemoglobin 13.4 g/dL (14.0-18.0); Immature Granulocyte Absolute 0.01 K/mm3 (0.00-0.031); Immature Granulocyte Percent A 0.1 % (0-0.5); Lymphocytes Absolute Auto 2.01 K/mm3 (0.9-3.2); Lymphocytes Percent Auto 29.4 % (18.3-44.2); Mean Corpuscular HGB Conc 32.1 g/dl (32-36); Mean Corpuscular Hemoglobin 30.8 pg (26-34); Mean Corpuscular Volume 95.9 fl (80-100); Mean Platelet Volume 10.1 fl (7.4-10.4); Monocytes Absolute Auto 0.5 K/mm3 (0.1-0.6); Monocytes Percent Auto 7.6 % (2.6-8.5); Neutrophils Percent Auto 59.2 % (45.5-73.1); Platelet Count Result 185 k/mm3 (150-375); Red Blood Count 4.35 M/mm3 (4.6-6.20); Red Cell Distribution Width 13.7 % (11.5-14.5); White Blood Count 6.8 K/mm3 (4.5-10.0)
[2024-02-06 10:54] LABS: Alanine Aminotransferase 18 U/L (6-50); Albumin Level 4.2 g/dL (3.5-5.1); Alkaline Phosphatase 86 U/L (38-126); Anion Gap 6 mmol/L (4-12); Aspartate Amino Transferase 33 U/L (17-59); Bilirubin,Total 1.7 mg/dL (0.2-1.3); Blood Urea Nitrogen 21 mg/dL (9-20); Calcium 9.2 mg/dL (8.4-10.2); Carbon Dioxide 29 mmol/L (22-30); Chloride 106 mmol/L (98-107); Estimated Glomerular Filt Rate > 60; Glucose 98 mg/dL (65-110); Lipase 244 U/L (23-300); Sodium 141 mmol/L (137-145)
[2024-02-06 10:57] LABS: INR 0.9; Prothrombin Time 12.9 Seconds (11.1-14.7)
[2024-02-06 10:58] LABS: Partial Thromboplastin Time 25.4 Seconds (22.3-36.8)
[2024-02-06 11:05] LABS: Troponin I 0.014 ng/mL (0.000-0.034)
--- NOTE | 2024-02-06 11:58 | ED.GENADULT ---
HPI - General Adult General Chief complaint: Chest Pain Stated complaint: chest pain Time Seen by Provider: 02/06/24 10:26 History of Present Illness HPI narrative: patient is an 88-year-old male who presents ER after having a possible syncopal episode 3 days ago. He was standing at his kitchen counter getting take some pills when his reports he began to ease himself to the ground. She thinks he may have lost consciousness for less than a 2nd. He is unable to get back up. Patient also reports that he has been having intermittent pains to his right upper chest that last for couple of seconds. No radiation. No association with lightheadedness or shortness of breath. No exertional component. 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 Was told to come to the ER today by his PCP due to his symptoms. Related Data Home Medications Medication Instructions Recorded Confirmed aspirin 81 mg tablet,delayed 81 mg PO DAILY 11/03/19 01/18/24 release amlodipine 5 mg tablet 5 mg PO DAILY 10/20/23 01/18/24 atorvastatin 80 mg tablet 80 mg PO DAILY 10/20/23 01/18/24 hydralazine 25 mg tablet 25 mg PO TID 10/20/23 01/18/24 niacin 500 mg tablet 500 mg PO DAILY 10/20/23 01/18/24 omega 9-vkh-hys-fish oil 900 1 cap PO DAILY 10/20/23 01/18/24 mg-1,400 mg capsule,delayed release tamsulosin 0.4 mg capsule (Flomax) 0.4 mg PO BID 11/20/23 01/18/24 Allergies Allergy/AdvReac Type Severity Reaction Status Date / Time No Known Allergies Allergy Verified 01/18/24 09:24 Review of Systems Review of Systems: All systems reviewed & are unremarkable except as noted in HPI and below Constitutional: Constitutional: Reports no additional constitutional complaints ENT: Reports system reviewed and no additional complaints, except as documented Cardiovascular: Cardiovascular: Reports chest pain, Denies rapid heart rate and Denies radiating jaw, neck or arm pain Respiratory: Respiratory: Reports no additional respiratory complaints Musculoskeletal: Musculoskeletal: Reports no additional musculoskeletal complaints Neurologic: Reports syncope, Denies headache(s), Denies focal weakness and Denies numbness PMF Past Medical History Medical History Arthritis Benign prostatic hyperplasia Coronary artery disease Hearing loss Hemorrhoids Hyperlipidemia Hypertension Peptic ulcer Shingles Vitamin D deficiency Surgical History Surgical History History of arthroscopy of both knees History of colonoscopy with polypectomy 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 History of vasectomy Family History Family History Mother Family history of pancreatic cancer Patient's mother is Family history of malignant neoplasm of ovary Father Acute myocardial infarction Sibling Family history of primary malignant neoplasm of liver Family history of malignant neoplasm of kidney Other Family history of malignant neoplasm Social History Social History Social History: Surrogate medical decision maker: Elly Rose, spouse. Code status: Full code. Smoking packs per day: 1 Smoking cigarettes per day: 20.0 Smoking status: Never smoker Tobacco type: cigarettes Second hand tobacco smoke exposure: No Smoking end date: 08/27/85 Alcohol intake: never Drinks per week: 10 Substance use: never Substance use type: does not use Do You Feel Safe in your Home?: Yes Lack of Transportation: No Lack of Food: Never True Current Housing: I Have Housing Concerned About Future Housing: No Difficulty Paying Gas/Electric Bills: No Difficulty Paying for Meds: No Currently Unemployed: N
--- NOTE | 2024-02-06 13:48 | ECG_ITS ---
Test Date: 2024-02-06 13:48:13 Measurements Intervals [place] Rate: 53 P: 64 [place]: 207 QRS: -5 QRSD: 103 T: 60 QT: 463 QTc: 435 Interpretive Statements SINUS BRADYCARDIA WITH OCCASIONAL VENTRICULAR PREMATURE COMPLEXES NONSPECIFIC ST & T-WAVE ABNORMALITY Compared to ECG 02/06/2024 10:25:38 NO SIGNIFICANT CHANGES Electronically Signed On 02-07-2024 12:33:21 CDT by Audra Ryan M.D.
[2024-02-06 14:25] LABS: Troponin I 0.012 ng/mL (0.000-0.034)
== END 2024-02-06 15:55 | disposition home or self-care (01) ==
PROVIDERS: Emergency Provider Emergency Medicine; PCP Emergency Medicine
DX: R07.9 Chest pain, unspecified (principal); R55 Syncope and collapse; I25.10 Atherosclerotic heart disease of native coronary artery without angina pectoris; I10 Essential (primary) hypertension; E78.5 Hyperlipidemia, unspecified; E55.9 Vitamin D deficiency, unspecified; N40.0 Benign prostatic hyperplasia without lower urinary tract symptoms; Z95.1 Presence of aortocoronary bypass graft; Z87.11 Personal history of peptic ulcer disease; Z79.82 Long term (current) use of aspirin; Z79.899 Other long term (current) drug therapy; Z86.010 Personal history of colon polyps; Z87.891 Personal history of nicotine dependence; Z89.022 Acquired absence of left finger(s); R00.1 Bradycardia, unspecified; I49.3 Ventricular premature depolarization; R94.31 Abnormal electrocardiogram [ECG] [EKG]
CPT/HCPCS: 36415; 71046; 80053; 83690; 84484; 85025; 85610; 85730; 93005; 99284

== ENCOUNTER 2024-02-20 17:53 | Emergency (ER) | payer OTHER, SELFPAY ==
--- NOTE | ~2024-02-20 | CT_ITS ---
EXAMINATION: CTA brain carotid DATE: 02/20/2024 19:20 INDICATION: dizziness, recent sycnope, cp TECHNIQUE: Computed tomographic angiography (CTA) of the head was performed without and with 100 mL O mnipaque-350 intravenous contrast. CTA of the neck was performed with intravenous contrast. Automated exposure control and iterative reconstruction technique were employed. The dose-length product was 1 845.91 mGy-cm. Maximum intensity projection and volume rendered 3D-reconstructions were created by gabo galvan technologist on a separate workstation. COMPARISON: None. FINDINGS: CT BRAIN: No acute intracranial hemorrhage, mass, or hydrocephalus. Frontal and ethmoid mucosal thickening, tra ce left mastoid fluid, the remaining aerated spaces are clear. Moderate atrophy and chronic white mat ter change. Bilateral lens replacements. CTA HEAD: No large vessel occlusion, aneurysm, high flow vascular malformation, nidus or extravasation. Symmetr ic parenchymal enhancement. Patent cerebral veins. CTA NECK: Aortic arch and proximal great vessels: Bovine arch anatomy. Mild arch calcifications. Right common carotid, carotid bifurcation, and internal carotid artery: Moderate calcification at the bifurcation.There is 36% stenosis of the proximal right internal carotid artery relative to normal d istal artery lumen diameter (NASCET criteria). Left common carotid, carotid bifurcation, and internal carotid artery: Moderate calcification at the bifurcation.There is 7% stenosis of the proximal left internal carotid artery relative to normal dist al artery lumen diameter (NASCET criteria). Vertebral arteries: No significant plaque or stenosis. Other findings: Left maxillary and ethmoid mucosal thickening. Cervical spondylosis. 2.7 cm right thy roid nodule. 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 Cardiomegaly. Dilated central pulmonary arteries as can be seen with pulmonary arterial h ypertension. Heavy coronary artery calcification. Calcified hilar nodes. Senescent changes in the kaylee gs. IMPRESSION: No acute intracranial process. No large vessel intracranial occlusion, high-grade intracranial stenosis, or aneurysm. No carotid or vertebral artery occlusion, dissection, or significant stenosis. 2.7 cm right thyroid nodule which could be evaluated further with outpatient thyroid ultrasound, depe nding on comorbidities and the patient's wishes. 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 Reviewed, dictated and finalized at location K. IMPRESSION: No acute intracranial process. No large vessel intracranial occlusion, high-grade intracranial stenosis, or an eurysm. No carotid or vertebral artery occlusion, dissection, or significant stenosis. 2.7 cm right thyroid nodule which could be evaluated further with outpatient th yroid ultrasound, depending on comorbidities and the patient's wishes. 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
--- NOTE | ~2024-02-20 | XR_ITS ---
EXAMINATION: XR chest 2V Exam Date/Time: 02/20/2024 18:18 CDT HISTORY: cp dizziness X1 DAY Comparison: 02/06/2024. RESULT: Lines, tubes, and devices: Intact sternotomy wires. Ostial markers. Mediastinal surgical clips. Lungs and pleura: Clear. Cardiomediastinal silhouette: Stable cardiomegaly. Enlarged central pulmonary arteries as can be see n with pulmonary arterial hypertension. Other: No acute osseous or upper abdominal finding. IMPRESSION: No acute cardiopulmonary process. Reviewed, dictated and finalized at location K.
[2024-02-20 17:58] VITALS: BP 161/55; PULSE 51; RESP 18; TEMP 36.6; O2SAT 98
[2024-02-20 18:08] VITALS: BP 143/102; PULSE 49; RESP 18; O2SAT 98
--- NOTE | 2024-02-20 18:11 | ECG_ITS ---
Test Date: 2024-02-20 18:00:15 Measurements Intervals [place] Rate: 55 P: 24 KS: 133 QRS: 2 QRSD: 102 T: 72 QT: 451 QTc: 435 Interpretive Statements SINUS BRADYCARDIA WITH OCCASIONAL VENTRICULAR PREMATURE COMPLEXES NONSPECIFIC ST & T-WAVE ABNORMALITY Compared to ECG 02/06/2024 13:48:13 No significant changes Electronically Signed On 02-21-2024 13:32:25 CDT by Audra Ryan M.D.
--- NOTE | 2024-02-20 18:18 | ED.CHESTPAIN ---
HPI - Chest Pain General Chief Complaint: Chest Pain Stated Complaint: CHEST DISCOMFORT AND DIZZINESS Time Seen by Provider: 02/20/24 18:10 Source: patient and old records reviewed Mode of arrival: ambulatory Limitations: no limitations History of Present Illness HPI narrative: Patient is an 88 y/o male who presents to the ED with c/o CP and dizziness. Patient reports he had an episode of dizziness today around 4:00. States that occurred while he was walking. States he felt near syncopal like he was going to pass out, but also describes the dizziness as though things were moving around him. He did not lose consciousness. He reported having pain across his anterior chest at that time. Symptoms resolved on their own after brief period. At the time of my evaluation, patient is asymptomatic. Denies any current chest pain. at bedside assisted in providing information. She reports patient had a syncopal episode and chest pain around 10 days ago. He sees Dr. Moreira and saw SEVERITY OF ILLNESS COORDINATOR in the office. Had a 48 hour Holter monitor that did not reveal any events. reports they have discussed pacemaker in the past with Cardiology d/t hx of bradycardia. He has been off of his beta blockers for the past 1 year. HR in the 40s upon arrival today. Patient denies shortness of breath, cough, cold symptoms, lower extremity pain or swelling, headache, vision changes, focal weakness or numbness. Related Data Home Medications Medication Instructions Recorded Confirmed aspirin 81 mg tablet,delayed 81 mg PO DAILY 11/03/19 02/13/24 release amlodipine 5 mg tablet 5 mg PO DAILY 10/20/23 02/13/24 atorvastatin 80 mg tablet 80 mg PO DAILY 10/20/23 02/13/24 hydralazine 25 mg tablet 25 mg PO TID 10/20/23 02/13/24 niacin 500 mg tablet 500 mg PO DAILY 10/20/23 02/13/24 omega 1-mmm-jpv-fish oil 900 1 cap PO DAILY 10/20/23 02/13/24 mg-1,400 mg capsule,delayed release tamsulosin 0.4 mg capsule (Flomax) 0.4 mg PO BID 11/20/23 02/13/24 Allergies Allergy/AdvReac Type Severity Reaction Status Date / Time No Known Allergies Allergy Verified 02/20/24 18:04 Review of Systems Review of Systems: CONSTITUTIONAL: Denies fever, chills, or sweats. ENT: Denies rhinorrhea, congestion, sore throat. CARDIOVASCULAR: see HPI. RESPIRATORY: Denies cough or dyspnea. GASTROINTESTINAL: Denies abdominal pain, nausea, vomiting NEUROLOGIC: See HPI. 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 History of vasectomy Family History Family History Mother Family history of pancreatic cancer Patient's mother is Family history of malignant neoplasm of ovary Father Acute myocardial infarction Sibling Family history of primary malignant neoplasm of liver Family history of malignant neoplasm of kidney Other Family history of malignant neoplasm Social History Social History Social History: Surrogate medical decision maker: Elly Rose, spouse. Code status: Full code. Smoking packs per day: 1 Smoking cigarettes per day: 20.0 Smoking status: Never smoker Tobacco type: cigarettes Second hand tobacco smoke exposure: No Smoking end date: 08/27/85 Alcohol intake: never Drinks per week: 10 Substance use:
[2024-02-20] MEDS: ASPIRIN 81 MG CHEWABLE TABLET 324 MG PO (18:27)
[2024-02-20 18:46] LABS: Basophils Percent Auto 0.7 % (0.2-1.2); Eosinophils Absolute Auto 0.3 K/mm3 (0-0.3); Hematocrit 39.1 % (42.0-52.0); Hemoglobin 12.7 g/dL (14.0-18.0); Immature Granulocyte Absolute 0.01 K/mm3 (0.00-0.031); Immature Granulocyte Percent A 0.2 % (0-0.5); Lymphocytes Absolute Auto 1.57 K/mm3 (0.9-3.2); Lymphocytes Percent Auto 26.3 % (18.3-44.2); Mean Corpuscular HGB Conc 32.5 g/dl (32-36); Mean Corpuscular Hemoglobin 31.1 pg (26-34); Mean Corpuscular Volume 95.6 fl (80-100); Mean Platelet Volume 9.8 fl (7.4-10.4); Monocytes Absolute Auto 0.6 K/mm3 (0.1-0.6); Monocytes Percent Auto 9.5 % (2.6-8.5); Neutrophils Absolute Auto 3.5 K/mm3 (1.3-6.7); Neutrophils Percent Auto 58.3 % (45.5-73.1); Platelet Count Result 183 k/mm3 (150-375); Red Blood Count 4.09 M/mm3 (4.6-6.20); Red Cell Distribution Width 14.2 % (11.5-14.5)
[2024-02-20 18:56] LABS: Alanine Aminotransferase 23 U/L (6-50); Albumin Level 4.4 g/dL (3.5-5.1); Alkaline Phosphatase 83 U/L (38-126); Anion Gap 7 mmol/L (4-12); Aspartate Amino Transferase 33 U/L (17-59); Bilirubin,Total 1.2 mg/dL (0.2-1.3); Blood Urea Nitrogen 22 mg/dL (9-20); Calcium 9.1 mg/dL (8.4-10.2); Carbon Dioxide 28 mmol/L (22-30); Chloride 106 mmol/L (98-107); Estimated CRCL calculation 41 ml/min; Estimated Glomerular Filt Rate 52; Glucose 106 mg/dL (65-110); Lipase 197 U/L (23-300); Potassium 4.2 mmol/L (3.4-5.0); Sodium 141 mmol/L (137-145)
[2024-02-20 19:07] LABS: NT Pro B Type Natriuretic Pept 1100 pg/mL (19.9-100); Troponin I < 0.012 ng/mL (0.000-0.034)
[2024-02-20 19:11] LABS: Partial Thromboplastin Time 25.4 Seconds (22.3-36.8); Prothrombin Time 13.7 Seconds (11.1-14.7)
[2024-02-20 19:12] LABS: D Dimer 0.69 ug/mL (<0.48)
[2024-02-20 19:13] LABS: Magnesium 2.1 mg/dL (1.6-2.3)
[2024-02-20] MEDS: SODIUM CHLORIDE 0.9% IV 500 ML 999 ML IV CONT (19:19)
[2024-02-20 19:32] VITALS: BP 155/60; PULSE 49; RESP 19; O2SAT 100
[2024-02-20 20:32] VITALS: BP 149/53; PULSE 42; RESP 19; O2SAT 98
[2024-02-20 21:02] VITALS: BP 129/59; PULSE 49; RESP 18; O2SAT 98
--- NOTE | 2024-02-20 21:10 | ECG_ITS ---
Test Date: 2024-02-20 21:14:49 Measurements Intervals [place] Rate: 47 P: 38 SC: 189 QRS: -9 QRSD: 105 T: 89 QT: 473 QTc: 419 Interpretive Statements SINUS BRADYCARDIA NONSPECIFIC ST & T-WAVE ABNORMALITY Compared to ECG 02/20/2024 18:00:15 NO SIGNIFICANT CHANGES Electronically Signed On 02-21-2024 13:33:28 CDT by Audra Ryan M.D.
[2024-02-20 21:44] LABS: Troponin I < 0.012 ng/mL (0.000-0.034)
[2024-02-20 22:26] VITALS: BP 154/62; PULSE 50; RESP 20; O2SAT 95
== END 2024-02-20 22:35 | disposition home or self-care (01) ==
PROVIDERS: Emergency Provider Physician Assistant; PCP Emergency Medicine
DX: R42 Dizziness and giddiness (principal); R55 Syncope and collapse; R00.1 Bradycardia, unspecified; N40.0 Benign prostatic hyperplasia without lower urinary tract symptoms; I25.10 Atherosclerotic heart disease of native coronary artery without angina pectoris; I10 Essential (primary) hypertension; E78.5 Hyperlipidemia, unspecified; E55.9 Vitamin D deficiency, unspecified; M19.90 Unspecified osteoarthritis, unspecified site; Z87.11 Personal history of peptic ulcer disease; Z86.010 Personal history of colon polyps; Z89.022 Acquired absence of left finger(s); Z87.891 Personal history of nicotine dependence; Z79.82 Long term (current) use of aspirin; Z79.899 Other long term (current) drug therapy; R94.31 Abnormal electrocardiogram [ECG] [EKG]; E04.1 Nontoxic single thyroid nodule; D17.1 Benign lipomatous neoplasm of skin and subcutaneous tissue of trunk; I49.3 Ventricular premature depolarization
CPT/HCPCS: 36415; 70496; 70498; 71046; 80053; 83690; 83735; 83880; 84484; 85025; 85380; 85610; 85730; 93005; 96360; 99284; A9270; J7040; Q9967

== ENCOUNTER 2024-03-21 17:12 | Inpatient (IN) | payer OTHER, SELFPAY ==
[2024-03-21] VITALS (27 sets, daily range): BP systolic 111–160; BP diastolic 52–129; PULSE 41–69; RESP 16–28; TEMP 36.3–36.9; O2SAT 94–100
--- NOTE | ~2024-03-21 | XR_ITS ---
EXAMINATION: XR chest 2V DATE: 03/25/2024 15:37 INDICATION: Pacer placement. TECHNIQUE: Frontal and lateral views of the chest were obtained. COMPARISON: Chest single view 03/24/2024 FINDINGS: There are small pleural effusions. There is mild atelectasis at the lung bases. No pneumoth orax. Cardiomegaly is noted. There is a right chest wall pacer with leads in the right atrium and rig ht ventricle. Median sternotomy wires and mediastinal surgical clips are seen, likely from prior deepali nary artery bypass grafting. IMPRESSION: 1. Small pleural effusions. 2. Cardiomegaly. Reviewed, dictated and finalized at location A.
--- NOTE | ~2024-03-21 | XR_ITS ---
EXAMINATION: XR chest 1V portable DATE: 03/24/2024 16:20 INDICATION: Pacemaker insertion TECHNIQUE: frontal view of the chest was obtained. COMPARISON: Chest radiograph dated 03/21/2024 FINDINGS: Increased interstitial pattern in the bilateral mid to lower lungs suggesting mild pulmonary edema. P ersistent small bilateral pleural effusions. No pneumothorax. Cardiomegaly. Median sternotomy wires, ostial markers and mediastinal surgical clips consistent with prior coronary artery bypass grafting. Dual lead pacemaker/AICD seen with leads projecting over the expected locations of the right atrium a nd right ventricle which is new since the prior study. Pressure IMPRESSION: 1. Mild interstitial opacities in bilateral mid and lower lung zones in favor mild pulmonary edema ov er pneumonia. 2. Unchanged small bilateral pleural effusions. 3. Cardiomegaly with new dual-lead cardiac pacemaker in expected position.. Reviewed, dictated and finalized at location A. IMPRESSION: 1. Mild interstitial opacities in bilateral mid and lower lung zones in favor m ild pulmonary edema over pneumonia. 2. Unchanged small bilateral pleural effusions. 3. Cardiomegaly with new dual-lead cardiac pacemaker in expected position..
--- NOTE | ~2024-03-21 | XR_ITS ---
EXAMINATION: XR chest 2V Exam Date/Time: 03/21/2024 17:42 CDT HISTORY: pre-syncope Comparison: 02/20/2024. RESULT: Lines, tubes, and devices: Intact sternotomy wires. Ostial markers. Mediastinal surgical clips. Lungs and pleura: Mild diffuse reticular and groundglass opacities. Minimal bilateral posterior cost ophrenic angle blunting. Cardiomediastinal silhouette: Stable. Enlarged central pulmonary arteries. Other: No acute osseous or upper abdominal finding. IMPRESSION: Mild interstitial edema. Small bilateral pleural effusions. Reviewed, dictated and finalized at location K.
--- NOTE | 2024-03-21 17:30 | ECG_ITS ---
Test Date: 2024-03-21 17:27:01 Measurements Intervals [place] Rate: 48 P: 48 UT: 185 QRS: -9 QRSD: 117 T: 155 QT: 485 QTc: 435 Interpretive Statements SINUS BRADYCARDIA WITH OCCASIONAL SUPRAVENTRICULAR PREMATURE COMPLEXES INTRAVENTRICULAR CONDUCTION DELAY CONSIDER INFERIOR INFARCT, AGE INDETERMINATE ST-T WAVE ABNORMALITY IN HIGH LATERAL LEADS- CONSIDER ISCHEMIA BASELINE ARTIFACT- I, III, AVR, AVL, AVF, V1-V6 ABNORMAL ECG Compared to ECG 02/20/2024 21:14:49 ST-T WAVE ABNORMALITY NOW PRESENT Electronically Signed On 03-21-2024 20:41:33 CDT by Andrea Sapp D.O.
--- NOTE | 2024-03-21 17:31 | ED.SYNCOPE ---
HPI - Syncope General Chief Complaint: Syncope <Augusta Lott PA-C - Last Filed: 03/30/24 15:28> Stated Complaint: syncope <Augusta Khadijah Lott PA-C - Last Filed: 03/30/24 15:28> Time Seen by Provider: 03/21/24 17:31 <Augusta Lott PA-C - Last Filed: 03/30/24 15:28> Focused HPI: This is an 88-year-old male that presents to the emergency department for presyncopal type episode. Reports he was walking to sit down in his chair. He started to feel very lightheaded as if he was going to pass out. His was able to help lower into the ground. He did not hit his head. Reports brief alteration in awareness. Patient now back to baseline. He does report some current chest discomfort. Reports he is scheduled to have a pacemaker placed in the next week. His adhesion tester is Dr. Moreira. GENERAL: Well-appearing, well-nourished, and in no acute distress. HEAD: Normocephalic, atraumatic. CHEST: Clear to auscultation. ?No respiratory distress. HEART: Bradycardic, regular rhythm.? NEURO: ?Alert and oriented x3. Patient screened in triage and initial orders placed.? ?Additional care and disposition to be based upon?diagnostic testing and treatment. <Augusta Lott PA-C - Last Filed: 03/30/24 15:28> History of Present Illness HPI narrative: Agree with the above with the following addition/corrections: Patient has a history of bradycardia and is scheduled for pacemaker placement on 03/28/[address] Green. He has had 4 total episodes of syncope including an episode today that was both loss of muscle tone and consciousness which he was able to fall into a chair without actually falling or injuring himself. He briefly lost consciousness and was unresponsive but awoke shortly thereafter and was at his baseline state of mentation. He has had intermittent chest pain although no chest pain today including none currently. He does get short of breath when lying flat. He denies any lower extremity edema. He is currently undergoing antibiotics 1 month long course for urinary infection under the direction of his urologist Dr. Solis Alvarez and he has been trying to drink plenty of water. <Laura Urbina MD - Last Filed: 03/24/24 03:56> Related Data Home Medications: Home Medications Medication Instructions Recorded Confirmed aspirin 81 mg tablet,delayed 81 mg PO DAILY 11/03/19 03/21/24 release niacin 500 mg tablet 500 mg PO DAILY 10/20/23 03/21/24 omega 9-rsj-eyo-fish oil 900 1 cap PO DAILY 10/20/23 03/21/24 mg-1,400 mg capsule,delayed release tamsulosin 0.4 mg capsule (Flomax) 0.4 mg PO BID 11/20/23 03/21/24 calcium carbonate (Tums) 200 mg PO PRN PRN Gastric Reflux 03/21/24 03/21/24 <Augusta Lott PA-C - Last Filed: 03/30/24 15:28> Allergies/Adverse Reactions: Allergies Allergy/AdvReac Type Severity Reaction Status Date / Time No Known Allergies Allergy Verified 03/21/24 17:34 <Augusta Lott PA-C - Last Filed: 03/30/24 15:28> Review of Systems Review of Systems: CONSTITUTIONAL: Denies fever CARDIOVASCULAR: Reports chest pain RESPIRATORY: Denies dyspnea. <Augusta Lott PA-C - Last Filed: 03/30/24 15:28> All systems reviewed & are unremarkable except as noted in HPI and below <Augusta Lott PA-C - Last Filed: 03/30/24 15:28> [facility] Past Medical History Medical History: Medical History (Updated 03/30/24 @ 15:28 by Augusta Lott PA-C) Arthritis Benign prostatic hyperplasia Bradycardia Coronary artery disease Hearing loss Hemorrhoids Hyperlipidemia Hypertension Peptic ulcer Shingles UTI (urinary tract infection) Vitamin D deficiency <Augusta Lott PA-C - Last Filed: 03/30/24 15:28> Surgical History Surgical History: Surgical History History of arthroscopy of both knees History of colonoscopy with polypectomy History of coronary artery bypass graft x 3 H
[2024-03-21 17:47] LABS: Basophils Percent Auto 0.3 % (0.2-1.2); Eosinophils Absolute Auto 0.3 K/mm3 (0-0.3); Eosinophils Percent Auto 4.2 % (0-4.4); Hematocrit 36.2 % (42.0-52.0); Hemoglobin 11.7 g/dL (14.0-18.0); Immature Granulocyte Absolute 0.04 K/mm3 (0.00-0.031); Immature Granulocyte Percent A 0.6 % (0-0.5); Lymphocytes Absolute Auto 1.57 K/mm3 (0.9-3.2); Lymphocytes Percent Auto 25.4 % (18.3-44.2); Mean Corpuscular HGB Conc 32.3 g/dl (32-36); Mean Corpuscular Hemoglobin 31.3 pg (26-34); Mean Corpuscular Volume 96.8 fl (80-100); Mean Platelet Volume 10.3 fl (7.4-10.4); Monocytes Absolute Auto 0.4 K/mm3 (0.1-0.6); Neutrophils Absolute Auto 3.9 K/mm3 (1.3-6.7); Neutrophils Percent Auto 62.5 % (45.5-73.1); Platelet Count Result 147 k/mm3 (150-375); Red Blood Count 3.74 M/mm3 (4.6-6.20); Red Cell Distribution Width 14.7 % (11.5-14.5); White Blood Count 6.2 K/mm3 (4.5-10.0)
[2024-03-21 17:58] LABS: Alanine Aminotransferase 22 U/L (6-50); Albumin Level 4.2 g/dL (3.5-5.1); Alkaline Phosphatase 86 U/L (38-126); Anion Gap 12 mmol/L (4-12); Aspartate Amino Transferase 35 U/L (17-59); Bilirubin,Total 1.6 mg/dL (0.2-1.3); Blood Urea Nitrogen 27 mg/dL (9-20); Calcium 8.6 mg/dL (8.4-10.2); Carbon Dioxide 26 mmol/L (22-30); Chloride 97 mmol/L (98-107); Estimated CRCL calculation 36 ml/min; Estimated Glomerular Filt Rate 52; Glucose 115 mg/dL (65-110); Potassium 4.2 mmol/L (3.4-5.0); Sodium 135 mmol/L (137-145)
[2024-03-21 19:13] LABS: Prothrombin Time 13.2 Seconds (11.1-14.7)
[2024-03-21 19:15] LABS: Partial Thromboplastin Time 27.5 Seconds (22.3-36.8)
--- NOTE | 2024-03-21 20:00 | PC.NURSE ---
EDP Urbina at bedside to discuss admission and Code Status.
[2024-03-21] MEDS: SODIUM CHLORIDE 0.9% IV 500 ML 999 ML IV CONT (20:13)
[2024-03-21] MEDS: ASPIRIN 81 MG CHEWABLE TABLET 324 MG PO (20:13)
--- NOTE | 2024-03-21 20:19 | PM.IMHP ---
H&P: HPI History of Present Illness Date/Time: 03/21/24 20:19 Chief Complaint: syncope Narrative: This is an 88-year-old male with past medical history significant for hypertension, benign prostatic hyperplasia, coronary artery disease, status post coronary artery bypass graft quadruple vessel disease, dyslipidemia. sinus bradycardia patient is scheduled for pacemaker placement has had a syncopal episodes recurrent today patient had a syncopal episode and was brought to the emergency room for evaluation he was found to have bradycardia. preliminary workup was significant for an elevated troponin, patient denies any chest pain, has had PND and orthopnea dizziness denies palpitations has had chest discomfort. Patient has been admitted for further evaluation management and treatment EXAMINATION: XR chest 2V Exam Date/Time: 03/21/2024 17:42 CDT HISTORY: pre-syncope Comparison: 02/20/2024. RESULT: Lines, tubes, and devices: Intact sternotomy wires. Ostial markers. Mediastinal surgical clips. Lungs and pleura: Mild diffuse reticular and groundglass opacities. Minimal bilateral posterior costophrenic angle blunting. Cardiomediastinal silhouette: Stable. Enlarged central pulmonary arteries. Other: No acute osseous or upper abdominal finding. IMPRESSION: Mild interstitial edema. Small bilateral pleural effusions. 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 History of vasectomy Family History Family History Mother Family history of pancreatic cancer Patient's mother is Family history of malignant neoplasm of ovary Father Acute myocardial infarction Sibling Family history of primary malignant neoplasm of liver Family history of malignant neoplasm of kidney Other Family history of malignant neoplasm Social History Social History Social History: Surrogate medical decision maker: Jeannene Milton, spouse. Code status: DNR/DNR per discussion 03/21/24 (intubation ok for anesthesia during pacemaker placement) Smoking packs per day: 1 Smoking cigarettes per day: 20.0 Smoking status: Former smoker Tobacco type: cigarettes Second hand tobacco smoke exposure: No Smoking end date: 08/27/85 Alcohol intake: current Drinks per week: 10 Substance use: never Substance use type: does not use Do You Feel Safe in your Home?: Yes Lack of Transportation: No Lack of Food: Never True Current Housing: Decline to Answer Concerned About Future Housing: No Difficulty Paying Gas/Electric Bills: No Difficulty Paying for Meds: No Currently Unemployed: No Education: High School Diploma/GED Difficulty w/ Childcare or Family Care: No Living arrangements: with family Occupation/Education: retired Spiritual care concerns: No Meds Home Medications and Allergies Home Medications Medication Instructions Recorded Confirmed Type aspirin 81 mg tablet,delayed 81 mg PO DAILY 11/03/19 03/21/24 History release niacin 500 mg tablet 500 mg PO DAILY 10/20/23 03/21/24 History omega 7-vme-xhr-fish oil 900 1 cap PO DAILY 10/20/23 03/21/24 History mg-1,400 mg capsule,delayed release tamsulosin 0.4 mg capsule (Flomax) 0.4 mg PO BID 11/20/23 03/21/24 History lisinopril 30 mg tablet See Rx Instructions
[2024-03-21 21:17] LABS: NT Pro B Type Natriuretic Pept 2850 pg/mL (19.9-100)
--- NOTE | 2024-03-21 21:52 | ECG_ITS ---
Test Date: 2024-03-21 22:02:13 Measurements Intervals [place] Rate: 56 P: -24 NM: 129 QRS: -13 QRSD: 107 T: 104 QT: 457 QTc: 441 Interpretive Statements SINUS BRADYCARDIA WITH MARKED SINUS ARRHYTHMIA INFERIOR INFARCT, AGE INDETERMINATE ST-T WAVE ABNORMALITY IN LAT/HIGH LAT LEADS- CONSIDER ISCHEMIA BASELINE ARTIFACT- I, II, III, AVR, AVF, V1, V4-V6 ABNORMAL ECG Compared to ECG 03/21/2024 17:27:01 HEART RATE HAS INCREASED Electronically Signed On 03-22-2024 07:42:53 CDT by Andrea Sapp D.O.
--- NOTE | 2024-03-21 22:32 | ADMGEN ---
This patient, Gómez Rose, was admitted to [facility] IMU[facility]2 at 2210. Patient/family oriented to hospital policies and general routines including ID bracelet, bed and alarms, visiting hours, pain management, procedures, bathroom and other care routines, personal items, smoking policy, room service/diet, and visiting hours. Information on how to activate the Rapid Response Team has been discussed. Patient/Family are encouraged to report perceived risks to care and to ask questions if they do not understand what they are told or what they should do.
[2024-03-22] VITALS (20 sets, daily range): BP systolic 114–147; BP diastolic 54–60; PULSE 43–66; RESP 16–20; TEMP 36.3–36.9; O2SAT 92–96
--- NOTE | 2024-03-22 | ECHO_ITS ---
Patient Info Name: Gómez Rose Age: 88 years : 1935 Gender: Male Ht: 69 in Wt: 205 lbs BSA: 2.15 m2 HR: 57 bpm BP: 129 / 54 mmHg Technical Quality: Fair Exam Date: 03/22/2024 1:49 PM Exam Location: Echo Lab Patient Status: Inpatient Admit Date: 03/21/2024 Staff Ordering Physician: Fatmata Gaspar APRN Underbaster: Jacob Haque RDCS Attending Provider: Gabby Alejo MD Referring Physician: Chasity LEONARD; Exam Type: CA echo dop color flow w con Study Info Indications - syncope Complete two-dimensional, color flow and Doppler transthoracic echocardiogram is performed with contrast to opacify the left ventricle and to improve the deliniation of the left ventricle endocardial borders. Contrast/Agitated Saline Contrast/Ag. Saline: Definity Amount: 3.00 ml Existing IV Access: Yes Summary 1. Left ventricular chamber dimension is normal. 2. Left ventricular systolic function is normal, estimated at 60-65%. 3. The left ventricular diastolic function is grade II diastolic dysfunction. 4. Right ventricular chamber dimension is normal. 5. Right ventricular systolic function is normal. 6. Left atrial chamber dimension is moderately enlarged. 7. There is moderate mitral valve regurgitation. 8. Moderate pulmonary hypertension, estimated pulmonary arterial systolic pressure is 50 mmHg. Left Ventricle Left ventricular chamber dimension is normal. Left ventricular systolic function is normal, estimated at 60-65%. There is no increased left ventricular wall thickness. Left ventricular septal wall motion is normal. The left ventricular diastolic function is grade II diastolic dysfunction. Right Ventricle Right ventricular chamber dimension is normal. Right ventricular systolic function is normal. Left Atria Left atrial chamber dimension is moderately enlarged. Right Atria Right atrial chamber dimension is normal. Aortic Valve The aortic valve is trileaflet. There is no aortic valve sclerosis. There is no aortic valve stenosis. There is no aortic valve regurgitation. Pulmonic Valve The pulmonic valve is not well visualized. There is no pulmonic valve stenosis. There is no pulmonic regurgitation. Mitral Valve The mitral valve has normal leaflets. There is no mitral valve stenosis. There is moderate mitral valve regurgitation. Tricuspid Valve The tricuspid valve leaflets are normal. There is no significant tricuspid valve stenosis. There is mild tricuspid valve regurgitation. Moderate pulmonary hypertension, estimated pulmonary arterial systolic pressure is 50 mmHg. Pericardium/Pleural The pericardium appears normal. There is no pericardial effusion. Inferior Vena Cava Inferior vena cava is not well visualized. Aorta The aortic root size at the sinus of Valsalva is normal. The prox ascending aorta size is normal. Left Ventricular Outflow Tract Name Value Normal LVOT 2D LVOT Diameter 2.03 cm LVOT Doppler LVOT Peak Gradient 6 mmHg LVOT Mean Gradient 3 mmHg LVOT VTI 27.25 cm LVOT VTI/AV VTI Ratio 0.64
[2024-03-22] MEDS: TAMSULOSIN HCL 0.4 MG CAPSULE PO ×2 (09:38→20:43)
[2024-03-22] MEDS: ATORVASTATIN 40 MG TABLET 80 MG BY MOUTH (09:38)
--- NOTE | 2024-03-22 10:31 | PM.IMPN ---
Progress Note: A&P Assessment and Plan (1) Syncope: Qualifiers: Encounter type: subsequent encounter Code(s): R55 - Syncope and collapse Status: Acute Assessment and Plan: 03/22/24: Patient has had multiple episodes of syncope and has known bradycardia awaiting pacemaker placement Chest x-ray showed mild interstitial edema, small bilateral pleural effusion EKG showed sinus bradycardia with marked sinus arrhythmia with a rate of 56, QTC 441 Last echo showing normal LV systolic function with an estimated EF of 50-55%, grade 1 diastolic dysfunction Will obtain new echo today Troponin today shown 1.240> 1.060> 1.010 Cardiology consulted (2) Bradycardia: Code(s): R00.1 - Bradycardia, unspecified Status: Acute Assessment and Plan: 03/22/24: Sinus bradycardia with marked sinus arrhythmia with a rate of 56, QTC 441 Cardiology following See above plan of care (3) Non-ST elevation [place] (NSTEMI): Code(s): I21.4 - Non-ST elevation (NSTEMI) myocardial infarction Status: Acute Assessment and Plan: 03/22/24: Troponins today shown 1.240> 1.060> 1.010 Cardiology following (4) Normocytic anemia: Code(s): D64.9 - Anemia, unspecified Status: Acute Assessment and Plan: 03/22/24: Hemoglobin 11.7, MCV 96.8 Will check iron, ferritin, B12, folic acid, TSH (5) Thrombocytopenia: Code(s): D69.6 - Thrombocytopenia, unspecified Status: Acute Assessment and Plan: 03/22/24: Platelet count 147 Continue to trend for now Consider hematology consult if no improvement Time Spent With Patient Time with patient: Greater than 35 minutes Subjective Date/time seen: 03/22/24 10:31 Interval history: Interval history: This is an 88-year-old male who presented to the hospital on 03/21/2024 with presyncopal type episode. Patient has had syncopal episodes in the past and has known bradycardia requiring pacemaker placement at some point. Presented with another syncopal episode today. Workup in the hospital included a chest x-ray which showed mild interstitial edema, small bilateral pleural effusions. Initial labs showed a white blood cell count of 6.2, hemoglobin 11.7, sodium 135, chloride 97, EGFR 52, creatinine 1.3, total bili 1.6, proBNP 2850, troponin 1.240> 1.060> 1.010. Last echo from 10/10/2022 showed normal LV systolic function with an estimated EF of 50-55%, grade 1 diastolic dysfunction, [id number] tricuspid valve regurgitation. EKG showed sinus bradycardia with marked sinus arrhythmia with a rate of 56, QTC 441. Patient was given 1 L of normal saline, and aspirin while in the ED. cardiology was consulted. 03/22/24: Patient denies any fever, chills, nausea, vomiting, diarrhea, abdominal pain, chest pain. Patient endorses shortness of breath on exertion. Denies any new complaints today. He is currently under treatment for urinary tract infection with Levaquin however this medication could prolong the QT and considering he he is already bradycardic we will not want to prolong his QTC any further. Will discuss this with the family. Review of Systems Review of Systems: All systems reviewed & are unremarkable except as noted in HPI and below Constitutional: Constitutional: Reports as per HPI and Reports no additional constitutional complaints Eyes: Eyes: Reports as per HPI and Reports no additional eye complaints ENT: Reports system reviewed and no additional complaints, except as documented and Reports as per HPI Cardiovascular: Cardiovascular: Reports as per HPI and Reports no additional cardiovascular complaints Respiratory: Respiratory: Reports as per HPI and Reports no additional respiratory complaints Gastrointestinal: Gastrointestinal: Reports as per HPI and Reports no additional gastrointestinal complaints Genitourinary: Genitourinary: Reports no additional male genitourinary complaints and Reports as per HPI Musculoske
[2024-03-22 11:05] LABS: Iron 53 ug/dL (49-181)
[2024-03-22 11:15] LABS: Percent Iron Saturation 20 % (20-50)
--- NOTE | 2024-03-22 12:12 | PM.CNCAR ---
Assessment and Plan Assessment and plan (1) Non-ST elevation [place] (NSTEMI): Code(s): I21.4 - Non-ST elevation (NSTEMI) myocardial infarction Status: Acute Plan Elevated troponin in the setting of syncope in a patient with history of coronary artery disease and prior CABG, possible NSTEMI versus type 2 demand ischemia. Recurrent syncope Sinus bradycardia Hypertension Plan Aspirin 81 mg daily LMWH Lovenox 1 mg/kg SC BID Lisinopril Amlodipine Statin Possible left heart catheterization on Sunday History of Present Illness History of Present Illness Consult date/time: 03/22/24 12:12 Reason For Visit: syncope Narrative: 88-year-old male patient presents to the hospital with episode of syncope. History was taken from family member his . Patient was standing in the kitchen when his noticed that he is moving quickly toward the chair trying to avoid falling. Immediately after sitting in a chair the patient has lost consciousness for 1 minute. He had no falls or injuries. He had previous similar episodes in the past. He was evaluated and planned for pacemaker insertion. Overnight there were no acute events. Heart rate overnight has been in the 40s while asleep and 50s while he is awake. He was noted to have elevated cardiac enzymes. Patient denies any chest pain shortness of breath. He had history of CABG in 30 years ago. Workup included a stress test last year was negative for ischemia. 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 History of vasectomy Family History Family History Mother Family history of pancreatic cancer Patient's mother is Family history of malignant neoplasm of ovary Father Acute myocardial infarction Sibling Family history of primary malignant neoplasm of liver Family history of malignant neoplasm of kidney Other Family history of malignant neoplasm Social History Social History Social History: Surrogate medical decision maker: Elly Rose, spouse. Code status: DNR/DNR per discussion 03/21/24 (intubation ok for anesthesia during pacemaker placement) Smoking packs per day: 1 Smoking cigarettes per day: 20.0 Smoking status: Former smoker Tobacco type: cigarettes Second hand tobacco smoke exposure: No Smoking end date: 08/27/85 Alcohol intake: current Drinks per week: 10 Substance use: never Substance use type: does not use Do You Feel Safe in your Home?: Yes Lack of Transportation: No Lack of Food: Never True Current Housing: Decline to Answer Concerned About Future Housing: No Difficulty Paying Gas/Electric Bills: No Difficulty Paying for Meds: No Currently Unemployed: No Education: High School Diploma/GED Difficulty w/ Childcare or Family Care: No Living arrangements: with family Occupation/Education: retired Spiritual care concerns: No Meds Home Medications and Allergies Home Medications Medication Instructions Recorded Confirmed Type aspirin 81 mg tablet,delayed 81 mg PO DAILY 11/03/19 03/21/24 History release niacin 500 mg tablet 500 mg PO DAILY 10/20/23 03/21/24 History omega 0-[id number]-[id number]-fish oil
[2024-03-22 12:24] LABS: Folic Acid 7.2 ng/mL (2.76->20)
[2024-03-22] MEDS: OMEGA 3 POLYUNSAT FATTY ACIDS 1 GM CAP PO (13:48)
[2024-03-22] MEDS: ENOXAPARIN 100 MG/ML SYRINGE 95 MG SUB-Q ×2 (13:48→20:43)
[2024-03-22] MEDS: ASPIRIN 81 MG ENTERIC TABLET PO (13:48)
[2024-03-22] MEDS: PERFLUTREN LIPID MICROSPHERES 1.5 ML VIAL DILUTED TO 10 ML TOTAL VOLUME IV PUSH (14:47)
--- NOTE | 2024-03-22 14:47 | IVDEFINITY ---
Prior to administration of IV Definity the patient was educated on the risks and benefits of the imaging enhancing agent including potential adverse side effects. The patient verbalized understanding. Allergies were verified. No exclusion criteria were identified and at least one of the following inclusion criteria were met: 1) physician request, 2) patient technically difficult to image (per the [place] [employer] guidelines of two or more segments not discernable within the apical view), or 3) questionable left ventricular function. ?
[2024-03-22] MEDS: lisinopriL 10 MG TABLET 30 MG BY MOUTH (20:43)
[2024-03-23] VITALS (16 sets, daily range): BP systolic 106–140; BP diastolic 45–63; PULSE 46–66; RESP 16–20; TEMP 36.2–36.8; O2SAT 93–96
--- NOTE | 2024-03-23 08:05 | P.PNIM_ITS ---
Progress Note: A&P Assessment and Plan (1) Syncope: Qualifiers: Encounter type: subsequent encounter Code(s): R55 - Syncope and collapse Status: Acute Assessment and Plan: 03/22/24: * Patient has had multiple episodes of syncope and has known bradycardia awaiting pacemaker placement * Chest x-ray showed mild interstitial edema, small bilateral pleural effusion * EKG showed sinus bradycardia with marked sinus arrhythmia with a rate of 56, QTC 441 * Last echo showing normal LV systolic function with an estimated EF of 50-55%, grade 1 diastolic dysfunction * Will obtain new echo today * Troponin today shown 1.240> 1.060> 1.010 * Cardiology consulted 03/23/24: * Echo results are pending * Cardiology following (2) Bradycardia: Code(s): R00.1 - Bradycardia, unspecified Status: Acute Assessment and Plan: 03/22/24: * Sinus bradycardia with marked sinus arrhythmia with a rate of 56, QTC 441 * Cardiology following * See above plan of care 03/23/24: * Possible cardiac cath on Sunday * Will await cardiology (3) Non-ST elevation [place] (NSTEMI): Code(s): I21.4 - Non-ST elevation (NSTEMI) myocardial infarction Status: Acute Assessment and Plan: 03/22/24: * Troponins today shown 1.240> 1.060> 1.010 * Cardiology following 03/23/24: * Possible cardiac cath on Sunday per Cardiology team (4) Normocytic anemia: Code(s): D64.9 - Anemia, unspecified Status: Acute Assessment and Plan: 03/22/24: * Hemoglobin 11.7, MCV 96.8 * Will check iron, ferritin, B12, folic acid, TSH 03/23/24: * Hemoglobin 11.8 * Iron level 53, ferritin 157, vitamin B12- 219, folate 7.2, TSH 2.19 * Will give Vitamin B 12 IV x1 and start Vitamin B12 500 mg tab tomorrow. (5) Thrombocytopenia: Code(s): D69.6 - Thrombocytopenia, unspecified Status: Acute Assessment and Plan: 03/22/24: * Platelet count 147 * Continue to trend for now * Consider hematology consult if no improvement 03/23/24: * Platelet count 141 * Likely due to Vitamin B12 deficiency, see above plan of care Time Spent With Patient Time with patient: 25 - 35 minutes Subjective Date/time seen: 03/23/24 08:05 Interval history: Interval history: This is an 88-year-old male who presented to the hospital on 03/21/2024 with presyncopal type episode. Patient has had syncopal episodes in the past and has known bradycardia requiring pacemaker placement at some point. Presented with another syncopal episode today. Workup in the hospital included a chest x-ray which showed mild interstitial edema, small bilateral pleural effusions. Initial labs showed a white blood cell count of 6.2, hemoglobin 11.7, sodium 135, chloride 97, EGFR 52, creatinine 1.3, total bili 1.6, proBNP 2850, troponin 1.240> 1.060> 1.010. Last echo from 10/10/2022 showed normal LV systolic function with an estimated EF of 50-55%, grade 1 diastolic dysfunction, [id number] tricuspid valve regurgitation. EKG showed sinus bradycardia with marked sinus arrhythmia with a rate of 56, QTC 441. Patient was given 1 L of normal saline, and aspirin while in the ED. cardiology was consulted. 03/22/24: Patient denies any fever, chills, nausea, vomiting, diarrhea, abdominal pain, chest pain. Patient endorses shortness of breath on exertion. Denies any new complaints today. He is currently under treatment for urinary tract infection with Levaquin however this medication could prolong the QT and considering he he is already bradycardic we will not want to prolong his QT
--- NOTE | 2024-03-23 08:05 | PM.IMPN ---
Progress Note: A&P Assessment and Plan (1) Syncope: Qualifiers: Encounter type: subsequent encounter Code(s): R55 - Syncope and collapse Status: Acute Assessment and Plan: 03/22/24: Patient has had multiple episodes of syncope and has known bradycardia awaiting pacemaker placement Chest x-ray showed mild interstitial edema, small bilateral pleural effusion EKG showed sinus bradycardia with marked sinus arrhythmia with a rate of 56, QTC 441 Last echo showing normal LV systolic function with an estimated EF of 50-55%, grade 1 diastolic dysfunction Will obtain new echo today Troponin today shown 1.240> 1.060> 1.010 Cardiology consulted 03/23/24: Echo results are pending Cardiology following (2) Bradycardia: Code(s): R00.1 - Bradycardia, unspecified Status: Acute Assessment and Plan: 03/22/24: Sinus bradycardia with marked sinus arrhythmia with a rate of 56, QTC 441 Cardiology following See above plan of care 03/23/24: Possible cardiac cath on Sunday Will await cardiology (3) Non-ST elevation [place] (NSTEMI): Code(s): I21.4 - Non-ST elevation (NSTEMI) myocardial infarction Status: Acute Assessment and Plan: 03/22/24: Troponins today shown 1.240> 1.060> 1.010 Cardiology following 03/23/24: Possible cardiac cath on Sunday per Cardiology team (4) Normocytic anemia: Code(s): D64.9 - Anemia, unspecified Status: Acute Assessment and Plan: 03/22/24: Hemoglobin 11.7, MCV 96.8 Will check iron, ferritin, B12, folic acid, TSH 03/23/24: Hemoglobin 11.8 Iron level 53, ferritin 157, vitamin B12- 219, folate 7.2, TSH 2.19 Will give Vitamin B 12 IV x1 and start Vitamin B12 500 mg tab tomorrow. (5) Thrombocytopenia: Code(s): D69.6 - Thrombocytopenia, unspecified Status: Acute Assessment and Plan: 03/22/24: Platelet count 147 Continue to trend for now Consider hematology consult if no improvement 03/23/24: Platelet count 141 Likely due to Vitamin B12 deficiency, see above plan of care Time Spent With Patient Time with patient: 25 - 35 minutes Subjective Date/time seen: 03/23/24 08:05 Interval history: Interval history: This is an 88-year-old male who presented to the hospital on 03/21/2024 with presyncopal type episode. Patient has had syncopal episodes in the past and has known bradycardia requiring pacemaker placement at some point. Presented with another syncopal episode today. Workup in the hospital included a chest x-ray which showed mild interstitial edema, small bilateral pleural effusions. Initial labs showed a white blood cell count of 6.2, hemoglobin 11.7, sodium 135, chloride 97, EGFR 52, creatinine 1.3, total bili 1.6, proBNP 2850, troponin 1.240> 1.060> 1.010. Last echo from 10/10/2022 showed normal LV systolic function with an estimated EF of 50-55%, grade 1 diastolic dysfunction, [id number] tricuspid valve regurgitation. EKG showed sinus bradycardia with marked sinus arrhythmia with a rate of 56, QTC 441. Patient was given 1 L of normal saline, and aspirin while in the ED. cardiology was consulted. 03/22/24: Patient denies any fever, chills, nausea, vomiting, diarrhea, abdominal pain, chest pain. Patient endorses shortness of breath on exertion. Denies any new complaints today. He is currently under treatment for urinary tract infection with Levaquin however this medication could prolong the QT and considering he he is already bradycardic we will not want to prolong his QTC any further. Will discuss this with the family. 03/23/24: Denies any new complaints today. No events overnight. Review of Systems Review of Systems: All systems reviewed & are unremarkable except as noted in HPI and below Constitutional: Constitutional: Reports as per HPI and Reports no additional constitutional complaints Eyes: Eyes: Reports as per HPI and Reports no additional eye complaints ENT: Re
[2024-03-23 08:21] LABS: Hematocrit 36.4 % (42.0-52.0); Hemoglobin 11.8 g/dL (14.0-18.0); Mean Corpuscular HGB Conc 32.4 g/dl (32-36); Mean Corpuscular Hemoglobin 30.8 pg (26-34); Mean Platelet Volume 10.1 fl (7.4-10.4); Platelet Count Result 141 k/mm3 (150-375); Red Blood Count 3.83 M/mm3 (4.6-6.20); Red Cell Distribution Width 14.5 % (11.5-14.5); White Blood Count 5.3 K/mm3 (4.5-10.0)
[2024-03-23 08:34] LABS: Alanine Aminotransferase 23 U/L (6-50); Albumin Level 4.1 g/dL (3.5-5.1); Alkaline Phosphatase 82 U/L (38-126); Anion Gap 10 mmol/L (4-12); Aspartate Amino Transferase 35 U/L (17-59); Bilirubin,Total 1.9 mg/dL (0.2-1.3); Blood Urea Nitrogen 22 mg/dL (9-20); Calcium 8.9 mg/dL (8.4-10.2); Carbon Dioxide 27 mmol/L (22-30); Chloride 101 mmol/L (98-107); Estimated CRCL calculation 47 ml/min; Estimated Glomerular Filt Rate > 60; Glucose 138 mg/dL (65-110); Magnesium 2.1 mg/dL (1.6-2.3); Potassium 3.9 mmol/L (3.4-5.0); Sodium 138 mmol/L (137-145)
[2024-03-23] MEDS: OMEGA 3 POLYUNSAT FATTY ACIDS 1 GM CAP PO (08:34)
[2024-03-23] MEDS: TAMSULOSIN HCL 0.4 MG CAPSULE PO ×2 (08:34→20:24)
[2024-03-23] MEDS: ENOXAPARIN 100 MG/ML SYRINGE 95 MG SUB-Q ×2 (08:34→20:24)
[2024-03-23] MEDS: ASPIRIN 81 MG ENTERIC TABLET PO (08:34)
[2024-03-23] MEDS: lisinopriL 10 MG TABLET 30 MG BY MOUTH ×2 (08:35→20:24)
[2024-03-23] MEDS: ATORVASTATIN 40 MG TABLET 80 MG BY MOUTH (08:35)
--- NOTE | 2024-03-23 13:09 | PM.PNCARD ---
Progress Note: A&P Assessment and Plan (1) Non-ST elevation [place] (NSTEMI): Code(s): I21.4 - Non-ST elevation (NSTEMI) myocardial infarction Status: Acute Plan Elevated troponin in the setting of syncope in a patient with history of coronary artery disease and prior CABG, possible NSTEMI versus type 2 demand ischemia. Recurrent syncope Sinus bradycardia Hypertension Plan [facility] on sunday Aspirin 81 mg daily LMWH Lovenox 1 mg/kg SC BID Lisinopril Amlodipine Statin Subjective Date/time seen: 03/23/24 13:09 Interval history: no acute events Review of Systems Review of Systems: All systems reviewed & are unremarkable except as noted in HPI and below Exam Const: General: comfortable and no acute distress Other: Able to lie flat HENMT: Face/Nose/Sinus: Normal nares present and no epistaxis Mouth: Yes moist mucous membranes Neck: Neck: supple and no JVD Carotids: no bruits Resp: Auscultation: clear to auscultation bilaterally and lung sounds not diminished Other: No chest wall tenderness Cardio: Rate: regular rate Rhythm: regular rhythm Heart sounds: no gallops, no murmurs and no rubs Extrem: General: no edema Other: Normal capillary refills Intact distal pulses. Objective Data Vital Signs Vital Signs: Vital Signs - 24 hr 03/22/24 14:00 03/22/24 15:56 03/22/24 16:00 Temperature 36.3 C L Pulse Rate 50 L 47 L 45 L Respiratory Rate 20 Blood Pressure 114/57 L Pulse Oximetry 94 Oxygen Delivery 03/22/24 16:00 03/22/24 18:00 03/22/24 19:57 Temperature 36.4 C L Pulse Rate 53 L 66 Respiratory Rate 18 Blood Pressure 147/60 H Pulse Oximetry 96 95 Oxygen Delivery Room Air 03/22/24 20:00 03/22/24 20:00 03/22/24 22:00 Temperature Pulse Rate 61 48 L Respiratory Rate Blood Pressure Pulse Oximetry Oxygen Delivery Room Air 03/22/24 23:59 03/23/24 00:00 03/23/24 00:00 Temperature 36.9 C Pulse Rate 65 55 L Respiratory Rate 16 Blood Pressure 144/58 H Pulse Oximetry 96 Oxygen Delivery Room Air 03/23/24 02:00 03/23/24 04:00 03/23/24 04:00 Temperature 36.4 C Pulse Rate 50 L 55 L Respiratory Rate 16 Blood Pressure 132/57 L Pulse Oximetry 94 Oxygen Delivery Room Air 03/23/24 04:00 03/23/24 06:00 03/23/24 07:32 Temperature 36.7 C Pulse Rate 52 L 56 L 54 L Respiratory Rate 16 Blood Pressure 135/63 Pulse Oximetry 93 Oxygen Delivery 03/23/24 08:00 03/23/24 10:00 03/23/24 12:00 Temperature Pulse Rate 56 L 52 L 63 Respiratory Rate Blood Pressure Pulse Oximetry Oxygen Delivery 03/23/24 12:00 Temperature 36.8 C Pulse Rate 55 L Respiratory Rate 18 Blood Pressure 106/45 L Pulse Oximetry 95 Oxygen Delivery Intake/Output Intake/Output: Intake & Output 03/20/24 03/21/24 03/22/24 03/23/24 23:59 23:59 23:59 23:59 Intake Total 569 223 8774 Output Total 100 2425 700 Balance 400 -1745 330 Meds/Results Medications: Active Medications Generic Name Dose Route Start Last Admin Trade Name Freq PRN Reason Stop Dose Admin Acetaminophen 650 mg 03/21/24 20:23 Acetaminophen 325 Mg Tablet PO Q4H PRN Mild Pain (1-3) or Fever Aspirin 81 mg 03/22/24 12:30 03/23/24 08:34 Aspirin 81 Mg Enteric Tablet PO 81 mg QAM [facility] Administration Atorvastatin Calcium 80 mg 03/22/24 09:00 03/23/24 08:35 Atorvastatin 40 Mg Tablet BY MOUTH 80 mg DAILY [facility] Administration Calcium Carbonate 200 mg 03/22/24 00:33 Calcium Carbonate (Tums) 500 Mg (200 Mg Elemental) PO PRN PRN Gastric Reflux Cyanocobalamin 1,000 mcg 03/23/24 13:15 Cyanocobalamin Inj 1,000 Mcg/Ml Vial IM 03/23/24 13:16 ONCE ONE Cyanocobalamin 500 mcg 03/24/24 09:00 Cyanocobalamin 500 Mcg Tablet PO QAM [facility] Enoxaparin Sodium 95 mg 03/22/24 12:30 03/23/24 08:34 Enoxaparin 100 Mg/Ml Syringe SUB-Q 95 mg Q12HR [facility]
[2024-03-23] MEDS: CYANOCOBALAMIN INJ 1,000 MCG/ML VIAL 1000 MCG IM (14:18)
[2024-03-24] VITALS (23 sets, daily range): BP systolic 111–148; BP diastolic 50–84; PULSE 41–77; RESP 14–24; TEMP 36.3–37.3; O2SAT 92–97
[2024-03-24 04:31] LABS: Hematocrit 32.6 % (42.0-52.0); Hemoglobin 10.5 g/dL (14.0-18.0); Mean Corpuscular HGB Conc 32.2 g/dl (32-36); Mean Corpuscular Hemoglobin 30.6 pg (26-34); Mean Platelet Volume 10.5 fl (7.4-10.4); Platelet Count Result 141 k/mm3 (150-375); Red Blood Count 3.43 M/mm3 (4.6-6.20); Red Cell Distribution Width 14.5 % (11.5-14.5); White Blood Count 5.2 K/mm3 (4.5-10.0)
[2024-03-24 04:44] LABS: Alanine Aminotransferase 18 U/L (6-50); Albumin Level 3.4 g/dL (3.5-5.1); Alkaline Phosphatase 68 U/L (38-126); Anion Gap 6 mmol/L (4-12); Aspartate Amino Transferase 33 U/L (17-59); Bilirubin,Total 1.6 mg/dL (0.2-1.3); Blood Urea Nitrogen 19 mg/dL (9-20); Calcium 8.5 mg/dL (8.4-10.2); Carbon Dioxide 30 mmol/L (22-30); Chloride 101 mmol/L (98-107); Estimated CRCL calculation 48 ml/min; Estimated Glomerular Filt Rate > 60; Glucose 99 mg/dL (65-110); Potassium 3.9 mmol/L (3.4-5.0); Sodium 137 mmol/L (137-145)
--- NOTE | 2024-03-24 07:48 | P.PNIM_ITS ---
Progress Note: A&P Assessment and Plan (1) Syncope: Qualifiers: Encounter type: subsequent encounter Code(s): R55 - Syncope and collapse Status: Acute Assessment and Plan: 03/22/24: * Patient has had multiple episodes of syncope and has known bradycardia awaiting pacemaker placement * Chest x-ray showed mild interstitial edema, small bilateral pleural effusion * EKG showed sinus bradycardia with marked sinus arrhythmia with a rate of 56, QTC 441 * Last echo showing normal LV systolic function with an estimated EF of 50-55%, grade 1 diastolic dysfunction * Will obtain new echo today * Troponin today shown 1.240> 1.060> 1.010 * Cardiology consulted 03/23/24: * Echo results are pending * Cardiology following 03/24/24: * Plan for pacemaker today * Cardiology following * Echo showing normal LV systolic function with an estimated EF of 60-65%, grade 2 diastolic dysfunction, moderate mitral valve regurgitation, moderate pulmonary hypertension with an estimated pulmonary arterial systolic pressure of 50 mmHg (2) Bradycardia: Code(s): R00.1 - Bradycardia, unspecified Status: Acute Assessment and Plan: 03/22/24: * Sinus bradycardia with marked sinus arrhythmia with a rate of 56, QTC 441 * Cardiology following * See above plan of care 03/23/24: * Possible cardiac cath on Sunday * Will await cardiology 03/24/24: * Pacemaker today * Cardiology following (3) Non-ST elevation [place] (NSTEMI): Code(s): I21.4 - Non-ST elevation (NSTEMI) myocardial infarction Status: Acute Assessment and Plan: 03/22/24: * Troponins today shown 1.240> 1.060> 1.010 * Cardiology following 03/23/24: * Possible cardiac cath on Sunday per Cardiology team 03/24/24: * Pacemaker today (4) Normocytic anemia: Code(s): D64.9 - Anemia, unspecified Status: Acute Assessment and Plan: 03/22/24: * Hemoglobin 11.7, MCV 96.8 * Will check iron, ferritin, B12, folic acid, TSH 03/23/24: * Hemoglobin 11.8 * Iron level 53, ferritin 157, vitamin B12- 219, folate 7.2, TSH 2.19 * Will give Vitamin B 12 IM x1 and start Vitamin B12 500 mg tab tomorrow. 03/24/24: * Hemoglobin 10.5 * Patient was given a 1 time dose of IM vitamin B12 * Continue vitamin B12 daily (5) Thrombocytopenia: Code(s): D69.6 - Thrombocytopenia, unspecified Status: Acute Assessment and Plan: 03/22/24: * Platelet count 147 * Continue to trend for now * Consider hematology consult if no improvement 03/23/24: * Platelet count 141 * Likely due to Vitamin B12 deficiency, see above plan of care 03/24/24: * Platelet count 141 * No change Time Spent With Patient Time with patient: Greater than 35 minutes Subjective Date/time seen: 03/24/24 07:48 Interval history: Interval history: This is an 88-year-old male who presented to the hospital on 03/21/2024 with presyncopal type episode. Patient has had syncopal episodes in the past and has known bradycardia requiring pacemaker placement at some point. Presented with another syncopal episode today. Workup in the hospital included a chest x-ray which showed mild interstitial edema, small bilateral pleural effusions. Initial labs showed a white blood cell count of 6.2, hemoglobin 11.7, sodium 135, chloride 97, EGFR 52, creatinine 1.3, total bili 1.6, proBNP 2850, troponin 1.240> 1.060> 1.010. Last echo from 10/10/2022 showed normal LV systolic function with an estimated EF of 50-55%, grade 1 diastolic dysfunct
--- NOTE | 2024-03-24 07:48 | PM.IMPN ---
Progress Note: A&P Assessment and Plan (1) Syncope: Qualifiers: Encounter type: subsequent encounter Code(s): R55 - Syncope and collapse Status: Acute Assessment and Plan: 03/22/24: Patient has had multiple episodes of syncope and has known bradycardia awaiting pacemaker placement Chest x-ray showed mild interstitial edema, small bilateral pleural effusion EKG showed sinus bradycardia with marked sinus arrhythmia with a rate of 56, QTC 441 Last echo showing normal LV systolic function with an estimated EF of 50-55%, grade 1 diastolic dysfunction Will obtain new echo today Troponin today shown 1.240> 1.060> 1.010 Cardiology consulted 03/23/24: Echo results are pending Cardiology following 03/24/24: Plan for pacemaker today Cardiology following Echo showing normal LV systolic function with an estimated EF of 60-65%, grade 2 diastolic dysfunction, moderate mitral valve regurgitation, moderate pulmonary hypertension with an estimated pulmonary arterial systolic pressure of 50 mmHg (2) Bradycardia: Code(s): R00.1 - Bradycardia, unspecified Status: Acute Assessment and Plan: 03/22/24: Sinus bradycardia with marked sinus arrhythmia with a rate of 56, QTC 441 Cardiology following See above plan of care 03/23/24: Possible cardiac cath on Sunday Will await cardiology 03/24/24: Pacemaker today Cardiology following (3) Non-ST elevation [place] (NSTEMI): Code(s): I21.4 - Non-ST elevation (NSTEMI) myocardial infarction Status: Acute Assessment and Plan: 03/22/24: Troponins today shown 1.240> 1.060> 1.010 Cardiology following 03/23/24: Possible cardiac cath on Sunday per Cardiology team 03/24/24: Pacemaker today (4) Normocytic anemia: Code(s): D64.9 - Anemia, unspecified Status: Acute Assessment and Plan: 03/22/24: Hemoglobin 11.7, MCV 96.8 Will check iron, ferritin, B12, folic acid, TSH 03/23/24: Hemoglobin 11.8 Iron level 53, ferritin 157, vitamin B12- 219, folate 7.2, TSH 2.19 Will give Vitamin B 12 IM x1 and start Vitamin B12 500 mg tab tomorrow. 03/24/24: Hemoglobin 10.5 Patient was given a 1 time dose of IM vitamin B12 Continue vitamin B12 daily (5) Thrombocytopenia: Code(s): D69.6 - Thrombocytopenia, unspecified Status: Acute Assessment and Plan: 03/22/24: Platelet count 147 Continue to trend for now Consider hematology consult if no improvement 03/23/24: Platelet count 141 Likely due to Vitamin B12 deficiency, see above plan of care 03/24/24: Platelet count 141 No change Time Spent With Patient Time with patient: Greater than 35 minutes Subjective Date/time seen: 03/24/24 07:48 Interval history: Interval history: This is an 88-year-old male who presented to the hospital on 03/21/2024 with presyncopal type episode. Patient has had syncopal episodes in the past and has known bradycardia requiring pacemaker placement at some point. Presented with another syncopal episode today. Workup in the hospital included a chest x-ray which showed mild interstitial edema, small bilateral pleural effusions. Initial labs showed a white blood cell count of 6.2, hemoglobin 11.7, sodium 135, chloride 97, EGFR 52, creatinine 1.3, total bili 1.6, proBNP 2850, troponin 1.240> 1.060> 1.010. Last echo from 10/10/2022 showed normal LV systolic function with an estimated EF of 50-55%, grade 1 diastolic dysfunction, [id number] tricuspid valve regurgitation. EKG showed sinus bradycardia with marked sinus arrhythmia with a rate of 56, QTC 441. Patient was given 1 L of normal saline, and aspirin while in the ED. cardiology was consulted. 03/22/24: Patient denies any fever, chills, nausea, vomiting, diarrhea, abdominal pain, chest pain. Patient endorses shortness of breath on exertion. Denies any new complaints today. He is currently under treatment for urinary tract infection with Levaquin
--- NOTE | 2024-03-24 08:19 | PM.PNCARD ---
Progress Note: A&P Assessment and Plan (1) Symptomatic bradycardia: Code(s): R00.1 - Bradycardia, unspecified Status: Acute (2) Syncope: Qualifiers: Encounter type: subsequent encounter Code(s): R55 - Syncope and collapse Status: Acute Plan 88-year-old man with: Syncopal and presyncopal episodes of recent onset appears to be related to sick sinus syndrome. He also has chronic coronary artery disease status post surgical revascularization in the remote past. The physician covering for us this past weekend recommended left heart catheterization for today. I believe given his presentation we should proceed with the permanent pacemaker implantation that was scheduled as an outpatient for later this week. Given the lack of ischemic symptoms clinically it would not be my plan/recommendation to perform catheterization at this time. Spoke to the patient about this he understands and is agreeable we will arrange for pacemaker implantation this afternoon Polo Moreira MD [facility] Subjective Date/time seen: Date of service: 03/24/24 08:19 Interval history: Patient without complaints this morning. He has a history of recent syncopal/near syncopal events which appears to be the result of sick sinus syndrome. This evaluation has been completed in the outpatient setting as detailed in my clinic notes. He was scheduled for permanent pacemaker implantation on Sunday of this week. He is not presenting with anything sounds like an acute ischemic event. Exam Const: General: comfortable and no acute distress Other: Able to lie flat HENMT: Face/Nose/Sinus: Normal nares present and no epistaxis Mouth: Yes moist mucous membranes Eyes: Sclera: sclerae normal Pupils: Equal, round and reactive pupils present Neck: Neck: supple and no JVD Carotids: no bruits Resp: Auscultation: clear to auscultation bilaterally and lung sounds not diminished Other: No chest wall tenderness Cardio: Rate: regular rate Rhythm: regular rhythm Heart sounds: no gallops, no murmurs and no rubs GI: Auscultation: normal bowel sounds Skin: General skin exam: normal color, rashes and/or lesions noted and no erythema Other: Warm Neuro: Cranial nerves: Yes Equal, round and reactive pupils present Speech: normal speech Other: No obvious focal deficit or facial asymmetry Extrem: General: no edema Other: Normal capillary refills Intact distal pulses. Objective Data Vital Signs Vital Signs: Vital Signs - 24 hr 03/23/24 10:00 03/23/24 12:00 03/23/24 12:00 Temperature 36.8 C Pulse Rate 52 L 63 55 L Respiratory Rate 18 Blood Pressure 106/45 L Pulse Oximetry 95 Oxygen Delivery 03/23/24 14:00 03/23/24 16:00 03/23/24 16:00 Temperature 36.2 C L Pulse Rate 52 L 49 L 52 L Respiratory Rate 18 Blood Pressure 121/50 L Pulse Oximetry 95 Oxygen Delivery 03/23/24 16:00 03/23/24 18:00 03/23/24 19:33 Temperature 36.7 C Pulse Rate 62 53 L Respiratory Rate 16 Blood Pressure 140/59 L Pulse Oximetry 94 Oxygen Delivery Room Air 03/23/24 20:00 03/23/24 20:00 03/23/24 22:00 Temperature Pulse Rate 46 L 46 L 66 Respiratory Rate 16 Blood Pressure Pulse Oximetry 94 Oxygen Delivery Room Air 03/23/24 23:20 03/23/24 23:52 03/23/24 23:52 Temperature 36.7 C Pulse Rate 52 L 48 L 48 L Respiratory Rate 20 20 Blood Pressure 129/53 L Pulse Oximetry 96 96 Oxygen Delivery Room Air 03/24/24 02:00 03/24/24 04:00 03/24/24 04:00 Temperature 36.7 C Pulse Rate 58 L 55 L 74 Respiratory Rate 14 Blood Pressure 128/53 L Pulse Oximetry 96 Oxygen Delivery 03/24/24 04:00 03/24/24 06:00 03/24/24 07:31 Temperature 36.7 C Pulse Rate 74 48 L 55 L Respiratory Rate 14 20 Blood Pressure 146/60 H Pulse Oximetry 96 96 Oxygen Delivery Room Air Intake/Output Intake/Output: Intake & Output 03/21/24
[2024-03-24] MEDS: ATORVASTATIN 40 MG TABLET 80 MG BY MOUTH (08:47)
[2024-03-24] MEDS: TAMSULOSIN HCL 0.4 MG CAPSULE PO ×2 (08:47→20:25)
[2024-03-24] MEDS: CYANOCOBALAMIN 500 MCG TABLET PO (08:48)
[2024-03-24] MEDS: lisinopriL 10 MG TABLET 30 MG BY MOUTH ×2 (08:48→20:25)
[2024-03-24] MEDS: SODIUM CHLORIDE 0.9% IV 500 ML 100 ML IV CONT (08:56)
--- NOTE | 2024-03-24 13:48 | WPDMODSED ---
Moderate Sedation Note-Pt Data Patient Data Diagnosis: Syncope with sick sinus syndrome coronary artery disease with remote history of surgical revascularization Present Complaint: intermittent syncope Procedure to be performed/Plan: implantation of permanent cardiac pacemaker Allergies Allergy/AdvReac Type Severity Reaction Status Date / Time No Known Allergies Allergy Verified 03/21/24 17:34 Home Medications Medication Instructions Recorded Confirmed Type aspirin 81 mg tablet,delayed 81 mg PO DAILY 11/03/19 03/21/24 History release niacin 500 mg tablet 500 mg PO DAILY 10/20/23 03/21/24 History omega 7-hch-fbg-fish oil 900 1 cap PO DAILY 10/20/23 03/21/24 History mg-1,400 mg capsule,delayed release tamsulosin 0.4 mg capsule (Flomax) 0.4 mg PO BID 11/20/23 03/21/24 History lisinopril 30 mg tablet See Rx Instructions .Route 01/03/24 03/21/24 Rx .COMPLEX #180 tabs cholecalciferol (vitamin D3) 1,250 1,250 mcg PO WEEKLY #12 caps 01/09/24 03/21/24 Rx mcg (50,000 unit) capsule amlodipine 5 mg tablet See Rx Instructions .Route 03/18/24 03/21/24 Rx .COMPLEX #90 tabs atorvastatin 80 mg tablet See Rx Instructions .Route 03/18/24 03/21/24 Rx .COMPLEX #90 tabs calcium carbonate (Tums) 200 mg PO PRN PRN Gastric Reflux 03/21/24 03/21/24 History levofloxacin 500 mg tablet 500 mg PO DAILY 03/22/24 03/22/24 History Current Medications: Active Medications Acetaminophen (Acetaminophen 325 Mg Tablet) 650 mg PO Q4H PRN PRN Reason: Mild Pain (1-3) or Fever Aspirin (Aspirin 81 Mg Enteric Tablet) 81 mg PO [facility] Last Admin: 03/24/24 08:50 Dose: Not Given Atorvastatin Calcium (Atorvastatin 40 Mg Tablet) 80 mg BY MOUTH DAILY [facility] Last Admin: 03/24/24 08:47 Dose: 80 mg Calcium Carbonate (Calcium Carbonate (Tums) 500 Mg (200 Mg Elemental)) 200 mg PO PRN PRN PRN Reason: Gastric Reflux Cyanocobalamin (Cyanocobalamin 500 Mcg Tablet) [facility] Last Admin: 03/24/24 08:48 Dose: 500 mcg Enoxaparin Sodium (Enoxaparin 100 Mg/Ml Syringe) 95 mg SUB-Q Q12HR [facility] Last Admin: 03/24/24 07:34 Dose: Not Given Fish Oil ([place] 3 Polyunsat Fatty Acids 1 Gm Cap) 1 gm PO QAM [facility] Last Admin: 03/24/24 08:50 Dose: Not Given Sodium Chloride (Normal Saline Iv) 500 mls @ 100 mls/hr IV CONT .Q5H [facility] Last Admin: 03/24/24 08:56 Dose: 100 mls/hr Lisinopril (Lisinopril 10 Mg Tablet) 30 mg BY MOUTH Q12HR [facility] Last Admin: 03/24/24 08:48 Dose: 30 mg Ondansetron HCl (Ondansetron Inj 4 Mg/2 Ml Vial) 4 mg IV PUSH Q4H PRN PRN Reason: Nausea Perflutren Lipid Microsphere (Perflutren Lipid Microspheres 1.5 Ml Vial Diluted To 10 Ml Total Volume) 0 ml IV PUSH ONCE PRN; Protocol PRN Reason: adequate visualization Stop: 03/25/24 11:11 Tamsulosin HCl (Tamsulosin Hcl 0.4 Mg Capsule) 0.4 mg PO Q12HR [facility] Last Admin: 03/24/24 08:47 Dose: 0.4 mg Sedation/Anesthesia: No previous sedation/anesthesia problems (including family history). 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 History of vasectomy Family History Family History Mother Family history of pancreatic cancer Patient's mother is Family history of malignant neoplasm of ovary Father Acute myocardial infarction Sibling Family history of primary malignant neoplasm of liver Family history of malignant neoplasm of kid
--- NOTE | 2024-03-24 14:00 | PC.NURSE ---
Patient off floor to clinical lab clerk.
--- NOTE | 2024-03-24 15:34 | ECG_ITS ---
Test Date: 2024-03-24 16:00:19 Measurements Intervals [place] Rate: 65 P: 74 W[place]: 229 QRS: -20 QRSD: 118 T: 70 QT: 451 QTc: 470 Interpretive Statements ELECTRONIC ATRIAL PACEMAKER INTRAVENTRICULAR CONDUCTION DELAY CONSIDER INFERIOR INFARCT, AGE INDETERMINATE ST-T WAVE ABNORMALITY IN HIGH LATERAL LEADS- CONSIDER ISCHEMIA BASELINE ARTIFACT- I, II, III, AVL, AVF ABNORMAL ECG Compared to ECG 03/21/2024 22:02:13 ELECTRONIC ATRIAL PACEMAKER NOW PRESENT Electronically Signed On 03-24-2024 16:38:22 CDT by Andrea Sapp D.O.
--- NOTE | 2024-03-24 15:36 | WPDCARDPROC ---
Cardiac Cath Procedure Note Date of procedure:: 03/24/24 Performing physician:: Polo Moreira MD Indication:: symptomatic bradycardia with syncope Brief clinical history:: this is an 88 old man with coronary disease, remote history of bypass grafting. He has been experiencing episodes of near-syncope and jannet syncope of recent onset. Outpatient event monitor has demonstrated pauses consistent with sick sinus syndrome. Pacemaker implantation has therefore been recommended and was scheduled for later this week. He was admitted over the weekend with another syncopal event. Procedure Procedure performed:: Implantation of permanent dual-chamber pacemaker Sedation/Medication given:: fentanyl 25 mg Versed 2 case start time 2:38 p.m. case end time 3:31 p.m. sedation provided by Radha Suero RN, trained observer Access site:: right subclavian vein Estimated blood loss:: 20 cc Procedure note:: patient was brought to the cardiac catheterization lab where he was in the postabsorptive state placed supine on the geophysical laboratory chief table. Because of a previous history of a left clavicular flat fracture I initially performed a venogram of the left subclavian vein and found to be significantly distorted with some collateral flow that has developed as well. As result of this I elected to proceed on the right side. A venogram was also done of the right subclavian vein before proceeding further. The right anterior chest wall was prepped and draped in the anesthesia was provided locally with 1% lidocaine infiltrated. An incision was then made about 1 in below the clavicle from the midclavicular line to the deltopectoral groove. Sharp and blunt dissection was used to separate the subcutaneous tissue identify the prepectoral fascia. Electrocautery was used to provide cutaneous hemostasis. Following this blunt dissection was used to create a pacemaker pocket inferior to the incision along the fascial plane and a antibiotic soaked 4 x 4 was placed into the pocket. Attention was then turned to venous access. Using 2 separate pacemaker SafeSheath kits the subclavian vein was punctured twice and guidewires were advanced under fluoroscopic visualization to the level of the right atrium. Using the 2 6 [place] SafeSheath introducers the leads detailed below was placed into the venous circulation into the right atrium. The sheaths were peeled away. Following this attention was turned to the ventricular lead. I removed the straight stylet and formed a J-tip stylet using a 3 cc syringe and used this to I let to steer the lead through the right ventricle out to the pulmonary artery. A straight stylet was then placed into lead was withdrawn and placed into the right ventricular apex. Fixation screw was deployed and appropriate sensing performs was demonstrated. A 10 volts stimulation showed no evidence of extracardiac stimulation. Following this attention was turned to position the atrial lead. The straight stylet was removed and a preformed atrial J stylet was used to place the lead into the right atrial appendage. The fixation screw was deployed and upon withdrawal of the stylet the lead tip was fixed into position. Once again appropriate pacing and sensing performance was demonstrated using the analyzer and a 10 volts stimulation showed no evidence of extracardiac stimulation. Following this the leads were secured to the base of the pocket using the suture sleeves and 2-0 silk ties. The retained sponge was then removed the pocket the pocket was then irrigated with antibiotic infused saline. After this the pacemaker generator was connected to the leads using the torque wrench and the entire assembly was placed into the newly created pocket. This was then closed in layers using 3-0 Vicryl in an interrupted fashion for the subcutaneous tissue and 4-0 Vicryl in a running subcuticular fashion for the skin. The wound was dressed with an Aquacel dressing a
--- NOTE | 2024-03-24 16:54 | PC.NURSE ---
Report received from VON Lujan
--- NOTE | 2024-03-24 17:15 | PC.NURSE ---
Patient returned to room via stretcher with Rnx2 at bedside. Right chest site assessed with VON Lujan. No s/s of swelling, no c/o pain at site.
[2024-03-24] MEDS: SODIUM CHLORIDE 0.9% IV 1,000 ML 50 ML IV CONT (17:23)
[2024-03-24] MEDS: ceFAZolin 1 GM/NS 50 ML 1 GM/50 ML BAG IVPB (21:51)
[2024-03-24] MEDS: ENOXAPARIN 100 MG/ML SYRINGE 95 MG SUB-Q (21:51)
[2024-03-25] VITALS (9 sets, daily range): BP systolic 106–132; BP diastolic 63–89; PULSE 63–68; RESP 14–20; TEMP 36.4–37.3; O2SAT 95
[2024-03-25 04:43] LABS: Hematocrit 33.6 % (42.0-52.0); Hemoglobin 10.8 g/dL (14.0-18.0); Mean Corpuscular HGB Conc 32.1 g/dl (32-36); Mean Corpuscular Hemoglobin 30.6 pg (26-34); Mean Corpuscular Volume 95.2 fl (80-100); Mean Platelet Volume 10.1 fl (7.4-10.4); Platelet Count Result 144 k/mm3 (150-375); Red Blood Count 3.53 M/mm3 (4.6-6.20); Red Cell Distribution Width 14.5 % (11.5-14.5); White Blood Count 6.3 K/mm3 (4.5-10.0)
[2024-03-25 05:11] LABS: Alanine Aminotransferase 17 U/L (6-50); Albumin Level 3.5 g/dL (3.5-5.1); Alkaline Phosphatase 88 U/L (38-126); Anion Gap 7 mmol/L (4-12); Aspartate Amino Transferase 31 U/L (17-59); Bilirubin,Total 1.3 mg/dL (0.2-1.3); Blood Urea Nitrogen 16 mg/dL (9-20); Calcium 8.4 mg/dL (8.4-10.2); Carbon Dioxide 27 mmol/L (22-30); Chloride 103 mmol/L (98-107); Estimated CRCL calculation 53 ml/min; Estimated Glomerular Filt Rate > 60; Glucose 98 mg/dL (65-110); Potassium 3.8 mmol/L (3.4-5.0); Sodium 137 mmol/L (137-145)
[2024-03-25] MEDS: ceFAZolin 1 GM/NS 50 ML 1 GM/50 ML BAG IVPB (05:34)
[2024-03-25] MEDS: OMEGA 3 POLYUNSAT FATTY ACIDS 1 GM CAP PO (08:41)
[2024-03-25] MEDS: ATORVASTATIN 40 MG TABLET 80 MG BY MOUTH (08:41)
[2024-03-25] MEDS: ASPIRIN 81 MG ENTERIC TABLET PO (08:41)
[2024-03-25] MEDS: CYANOCOBALAMIN 500 MCG TABLET PO (08:41)
[2024-03-25] MEDS: ENOXAPARIN 100 MG/ML SYRINGE 95 MG SUB-Q (08:41)
[2024-03-25] MEDS: TAMSULOSIN HCL 0.4 MG CAPSULE PO (08:41)
[2024-03-25] MEDS: lisinopriL 10 MG TABLET 30 MG BY MOUTH (08:41)
--- NOTE | 2024-03-25 09:49 | PM.DS ---
DS: Admitting Diagnosis Discharge Date 03/25/24 Admitting Diagnosis Syncope Bradycardia NSTEMI Normocytic anemia Thrombocytopenia DS: Discharge Diagnosis Discharge Diagnosis (1) Syncope: Qualifiers: Encounter type: subsequent encounter Code(s): R55 - Syncope and collapse Status: Acute (2) Bradycardia: Code(s): R00.1 - Bradycardia, unspecified Status: Acute (3) Non-ST elevation [place] (NSTEMI): Code(s): I21.4 - Non-ST elevation (NSTEMI) myocardial infarction Status: Acute (4) Normocytic anemia: Code(s): D64.9 - Anemia, unspecified Status: Acute (5) Thrombocytopenia: Code(s): D69.6 - Thrombocytopenia, unspecified Status: Acute DS: Summary Hospital Course Reason for hospitalization: Syncope Bradycardia NSTEMI Normocytic anemia Thrombocytopenia Hospital Course: This is an 88-year-old male who presented to the hospital on 03/21/2024 with presyncopal type episode. Patient has had syncopal episodes in the past and has known bradycardia requiring pacemaker placement at some point. Presented with another syncopal episode today. Workup in the hospital included a chest x-ray which showed mild interstitial edema, small bilateral pleural effusions. Initial labs showed a white blood cell count of 6.2, hemoglobin 11.7, sodium 135, chloride 97, EGFR 52, creatinine 1.3, total bili 1.6, proBNP 2850, troponin 1.240> 1.060> 1.010. Last echo from 10/10/2022 showed normal LV systolic function with an estimated EF of 50-55%, grade 1 diastolic dysfunction, [id number] tricuspid valve regurgitation. EKG showed sinus bradycardia with marked sinus arrhythmia with a rate of 56, QTC 441. Patient was given 1 L of normal saline, and aspirin while in the ED. cardiology was consulted. Patient had dual pacemaker placed yesterday without any complications. Labs were reviewed and patient is stable for discharge at this time. He will need to follow with Cardiology in a couple weeks. Final diagnosis: Syncope, sick sinus syndrome, NSTEMI, thrombocytopenia, normocytic anemia, vitamin B 12 deficiency Status at Discharge Cognitive/behavioral status at discharge: Alert oriented x4 Functional status at discharge: independent ambulation Overall status at discharge: patient is progressing back to baseline Time Spent with Patient Time attestation: Total time spent providing and/or coordinating discharge services: Time spent: Greater than 30 minutes Exam Narrative: General: In no acute distress, well nourished Cardiac: Normal S1 and S2. Sinus Jozef, irregular rate, No murmur, gallops or friction rubs, peripheral pulses intact. Respiratory: Lungs clear to auscultation, no adventitious lung sounds, currently on room air Gastrointestinal: soft, non-distended, non-tender, normoactive bowel sounds. : voiding without difficulty. Neuro: Alert and oriented x4 DS: Data Data Completed and Pending Completed studies during hospitalization: Chest x-ray x2 Pending studies at discharge: None Labs on day of discharge: Labs from last 24 hours 03/25/24 04:10 WBC 6.3 RBC 3.53 L Hgb 10.8 L Hct 33.6 L MCV 95.2 MCH 30.6 MCHC 32.1 RDW 14.5 Plt Count 144 L MPV 10.1 Sodium 137 Potassium 3.8 Chloride 103 Carbon Dioxide 27 Anion Gap 7 BUN 16 Creatinine 1.00 Estim Creat Clear Calc 53 Estimated GFR > 60 Glucose 98 Calcium 8.4 Magnesium 2.0 Total Bilirubin 1.3 AST 31 ALT 17 Alkaline Phosphatase 88 Total Protein 6.0 L Albumin 3.5 Procedures/Treatments: Implantation of permanent dual-chamber pacemaker Discharge Plan Discharge Attending physician on discharge: Janny Simms Consulting providers: Aramis Alicia Holly M. Discharging Clinician: Fatmata Gaspar Anticipated Discharge Date/Time: 03/25/24 09:42 Patient Disposition: Home, Self-Care Activity: as tolerated Diet: as tolerated Wound Care Instr
--- NOTE | 2024-03-25 14:46 | PM.PNCARD ---
Progress Note: A&P Assessment and Plan (1) Symptomatic bradycardia: Code(s): R00.1 - Bradycardia, unspecified Status: Acute (2) Syncope: Qualifiers: Encounter type: subsequent encounter Code(s): R55 - Syncope and collapse Status: Acute Plan 88-year-old man with: Syncopal and presyncopal episodes of recent onset appears to be related to sick sinus syndrome. He also has chronic coronary artery disease status post surgical revascularization in the remote past. He is now s/p Biotronik pacemaker placement yesterday and is stable. His device check this morning showed normal device function. Awaiting follow up chest x-ray and if that is stable he is appropriate for discharge. He has follow up in our office scheduled for next week. Subjective Date/time seen: 03/25/24 14:46 Interval history: Cardiology follow up for SSS, s/p PPM Feeling well today and has no complaints. He denies chest pain, shortness of breath. No pain/tenderness at pacer incision site. Review of Systems Review of Systems: All systems reviewed & are unremarkable except as noted in HPI and below Exam Const: General: comfortable and no acute distress Other: Able to lie flat HENMT: Face/Nose/Sinus: Normal nares present and no epistaxis Mouth: Yes moist mucous membranes Eyes: Sclera: sclerae normal Pupils: Equal, round and reactive pupils present Neck: Neck: supple and no JVD Carotids: no bruits Chest: Other: Right upper chest sterile dressing dry and intact. No significant bleeding. No hematoma. Small amount of ecchymosis in R axilla. Resp: Auscultation: clear to auscultation bilaterally and lung sounds not diminished Other: No chest wall tenderness Cardio: Rate: regular rate Rhythm: regular rhythm Heart sounds: no gallops, no murmurs and no rubs GI: Auscultation: normal bowel sounds Skin: General skin exam: normal color, rashes and/or lesions noted and no erythema Other: Warm Neuro: Cranial nerves: Yes Equal, round and reactive pupils present Speech: normal speech Other: No obvious focal deficit or facial asymmetry Extrem: General: no edema Other: Normal capillary refills Intact distal pulses. Objective Data Vital Signs Vital Signs: Vital Signs - 24 hr 03/24/24 17:45 03/24/24 15:50 03/24/24 16:00 Temperature 36.6 C 36.3 C L Pulse Rate 66 65 66 Respiratory Rate 20 20 18 Blood Pressure 132/50 L 142/84 H 148/76 H Pulse Oximetry 92 92 93 Oxygen Delivery Room Air Room Air 03/24/24 16:15 03/24/24 16:30 03/24/24 16:45 Temperature Pulse Rate 76 72 77 Respiratory Rate 18 20 18 Blood Pressure 131/74 146/75 H 129/66 Pulse Oximetry 92 96 94 Oxygen Delivery Room Air Room Air Room Air 03/24/24 17:15 03/24/24 17:15 03/24/24 18:00 Temperature Pulse Rate 66 61 Respiratory Rate Blood Pressure Pulse Oximetry 92 Oxygen Delivery Room Air 03/24/24 18:45 03/24/24 19:45 03/24/24 20:44 Temperature 36.5 C 36.7 C 37.2 C Pulse Rate 62 62 61 Respiratory Rate 24 H 18 16 Blood Pressure 111/52 L 116/57 L 137/50 L Pulse Oximetry 95 97 96 Oxygen Delivery 03/24/24 20:00 03/24/24 20:00 03/24/24 21:45 Temperature 37.3 C Pulse Rate 62 62 61 Respiratory Rate 16 20 Blood Pressure 121/57 L Pulse Oximetry 96 96 Oxygen Delivery Room Air 03/24/24 22:00 03/24/24 23:52 03/25/24 00:00 Temperature 37.2 C Pulse Rate 64 68 64 Respiratory Rate 14 Blood Pressure 139/58 L Pulse Oximetry 95 Oxygen Delivery 03/25/24 00:00 03/25/24 02:00 03/25/24 04:00 Temperature Pulse Rate 64 68 66 Respiratory Rate 14 Blood Pressure Pulse Oximetry 95 Oxygen Delivery Room Air 03/25/24 04:00 03/25/24 04:00 03/25/24 05:58 Temperature 37.3 C Pulse Rate 66 67 64 Respiratory Rate 14 20 Blood Pressure 132/63 Pulse Oximetry 95 95 Oxygen Delivery Room Air 03/25/24 07:40 03/25/24 08:00 02/26
== END 2024-03-25 16:55 | disposition home or self-care (01) | DRG 244 ==
LOC: ANHED 21:15 → ANHIMU 21:24
PROVIDERS: Physician Assistant; Specialist; Admitting Provider Internal Medicine; Emergency Provider Student in an Organized Health Care Education/Training Program; PCP Emergency Medicine; Visit Provider Nurse Practitioner Acute Care
PROC: 0JH606Z Insertion of Pacemaker, Dual Chamber into Chest Subcutaneous Tissue and Fascia, Open Approach (ICD-10-PCS; CPT 33208; principal; 2024-03-24 14:00)
DX: I21.4 Non-ST elevation (NSTEMI) myocardial infarction (principal); I49.5 Sick sinus syndrome; R00.1 Bradycardia, unspecified; D69.6 Thrombocytopenia, unspecified; D64.9 Anemia, unspecified; E78.5 Hyperlipidemia, unspecified; E53.8 Deficiency of other specified B group vitamins; I25.10 Atherosclerotic heart disease of native coronary artery without angina pectoris; I10 Essential (primary) hypertension; N40.0 Benign prostatic hyperplasia without lower urinary tract symptoms; Z66 Do not resuscitate; Z95.1 Presence of aortocoronary bypass graft; Z79.82 Long term (current) use of aspirin; Z87.891 Personal history of nicotine dependence
CPT/HCPCS: 33208; 36415; 71045; 71046; 80053; 82306; 82607; 82728; 82746; 83540; 83550; 83735; 83880; 84443; 84484; 85025; 85027; 85610; 85730; 93005; 99285; A9270; C1779; C1785; C8929; J0690; J1650; J2250; J3010; J3420; J7030; J7040; Q9957

== ENCOUNTER 2024-05-23 12:45 | Emergency (ER) | payer OTHER, SELFPAY ==
[2024-05-23 12:51] VITALS: BP 157/87; PULSE 67; RESP 18; TEMP 36.6; O2SAT 99
[2024-05-23 13:07] VITALS: BP 157/73; PULSE 74; RESP 20; TEMP 36.3; O2SAT 100
--- NOTE | 2024-05-23 13:12 | ED.GENADULT ---
HPI - General Adult General Chief complaint: Urogenital-Male Stated complaint: UTI, retention Time Seen by Provider: 05/23/24 13:00 History of Present Illness HPI narrative: [age] year old male presents to the emergency department for evaluation for urinary retention. Patient does have a prior history of urinary retention and does follow-up with Urology, Dr Leon. Patient is a is currently maintenance antibiotics for frequent urinary tract infections. Patient states that he began having worsening retention this morning has not urinated since morning. Patient does present to the emergency department uncomfortable appearing due to increased urinary pressure and suprapubic pain. Related Data Home Medications Medication Instructions Recorded Confirmed aspirin 81 mg tablet,delayed 81 mg PO DAILY 11/03/19 04/30/24 release niacin 500 mg tablet 500 mg PO DAILY 10/20/23 04/30/24 omega 4-cvi-kcx-fish oil 900 1 cap PO DAILY 10/20/23 04/30/24 mg-1,400 mg capsule,delayed release tamsulosin 0.4 mg capsule (Flomax) 0.4 mg PO BID 11/20/23 04/30/24 calcium carbonate (Tums) 200 mg PO PRN PRN Gastric Reflux 03/21/24 04/30/24 Allergies Allergy/AdvReac Type Severity Reaction Status Date / Time No Known Allergies Allergy Verified 04/30/24 09:37 Review of Systems Review of Systems: All systems reviewed & are unremarkable except as noted in HPI and below PMFSH Past Medical History Medical History Arthritis Benign prostatic hyperplasia Bradycardia Coronary artery disease Hearing loss Hemorrhoids Hyperlipidemia Hypertension Peptic ulcer Shingles UTI (urinary tract infection) Vitamin D deficiency Surgical History Surgical History History of arthroscopy of both knees History of colonoscopy with polypectomy 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 History of vasectomy Family History Family History Mother Family history of pancreatic cancer Patient's mother is Family history of malignant neoplasm of ovary Father Acute myocardial infarction Sibling Family history of primary malignant neoplasm of liver Family history of malignant neoplasm of kidney Other Family history of malignant neoplasm Social History Social History Social History: Surrogate medical decision maker: Elly Rose, spouse. Code status: DNR/DNR per discussion 03/21/24 (intubation ok for anesthesia during pacemaker placement) Smoking packs per day: 1 Smoking cigarettes per day: 20.0 Smoking status: Former smoker Tobacco type: cigarettes Second hand tobacco smoke exposure: No Smoking end date: 08/27/85 Alcohol intake: current Drinks per week: 10 Substance use: never Substance use type: does not use Do You Feel Safe in your Home?: Yes Lack of Transportation: No Lack of Food: Never True Current Housing: Decline to Answer Concerned About Future Housing: No Difficulty Paying Gas/Electric Bills: No Difficulty Paying for Meds: No Currently Unemployed: No Education: High School Diploma/GED Difficulty w/ Childcare or Family Care: No Living arrangements: with family Occupation/Education: retired Spiritual care concerns: No Exam Narrative: APPEARANCE: Uncomfortable appearing due to urinary pressure HEAD: normocephalic, atraumatic. EYES: PERRLA/EOMI, conjunctivae clear. NOSE: Normal no drainage EARS:TMS clear with good light reflex. THROAT: Pharynx clear, no exudate. NECK: Supple. No adenopathy, no masses. RESPIRATORY: Airway patent, respirations nonlabored. Clear to auscultation bilaterally, no rales, rhonchi, wheezing. CARDIOVASCULAR: Regular rate and
[2024-05-23 13:50] VITALS: BP 137/65; PULSE 68; RESP 16; TEMP 36.2; O2SAT 97
[2024-05-23 13:51] LABS: Add Urine Microscopic? YES; Appearance Urine Turbid (Clear); Bacteria Urine None Seen /hpf; Bilirubin Urine 2+ (Negative); Blood Urine 2+ (Negative); Color Urine Red (Yellow); Glucose Urine UA Negative (Negative); Ketones Urine Negative (Negative); Leukocyte Esterase Ur 2+ LEU/UL (Negative); Nitrate Urine Positive (Negative); Non Pathogenic Casts 0-2; Protein Urine 3+ mg/dL (Negative); Specific Grav Ur 1.009 (1.001-1.035); Squamous Epithelial Cell Urine Occasional /hpf (Few); Urobilinogen Urine 0.2 mg/dL (<2.0); WBC Urine 21-50 /hpf (0-3)
[2024-05-23 13:52] LABS: Need Manual Microscopic Reviewed; RBC Urine >100 /hpf (0-2)
[2024-05-23 14:39] LABS: Basophils Percent Auto 0.5 % (0.2-1.2); Eosinophils Absolute Auto 0.1 K/mm3 (0-0.3); Eosinophils Percent Auto 1.6 % (0-4.4); Hematocrit 34.7 % (42.0-52.0); Hemoglobin 11.2 g/dL (14.0-18.0); Immature Granulocyte Absolute 0.02 K/mm3 (0.00-0.031); Immature Granulocyte Percent A 0.4 % (0-0.5); Lymphocytes Percent Auto 16.2 % (18.3-44.2); Mean Corpuscular HGB Conc 32.3 g/dl (32-36); Mean Corpuscular Hemoglobin 29.9 pg (26-34); Mean Corpuscular Volume 92.8 fl (80-100); Mean Platelet Volume 9.1 fl (7.4-10.4); Monocytes Absolute Auto 0.6 K/mm3 (0.1-0.6); Monocytes Percent Auto 10.6 % (2.6-8.5); Neutrophils Absolute Auto 3.9 K/mm3 (1.3-6.7); Neutrophils Percent Auto 70.7 % (45.5-73.1); Platelet Count Result 163 k/mm3 (150-375); Red Blood Count 3.74 M/mm3 (4.6-6.20); Red Cell Distribution Width 14.5 % (11.5-14.5); White Blood Count 5.5 K/mm3 (4.5-10.0)
[2024-05-23 14:50] LABS: Alanine Aminotransferase 19 U/L (6-50); Albumin Level 3.8 g/dL (3.5-5.1); Alkaline Phosphatase 81 U/L (38-126); Anion Gap 8 mmol/L (4-12); Aspartate Amino Transferase 37 U/L (17-59); Bilirubin,Total 1.1 mg/dL (0.2-1.3); Blood Urea Nitrogen 13 mg/dL (9-20); Carbon Dioxide 27 mmol/L (22-30); Chloride 102 mmol/L (98-107); Estimated CRCL calculation 56 ml/min; Estimated Glomerular Filt Rate > 60; Glucose 99 mg/dL (65-110); Potassium 3.7 mmol/L (3.4-5.0); Sodium 137 mmol/L (137-145)
[2024-05-23 15:59] VITALS: BP 137/69; PULSE 68; RESP 18; TEMP 36.3; O2SAT 98
== END 2024-05-23 16:24 | disposition home or self-care (01) ==
PROVIDERS: Emergency Provider Emergency Medicine; PCP Emergency Medicine
DX: N40.1 Benign prostatic hyperplasia with lower urinary tract symptoms (principal); R33.8 Other retention of urine; R31.0 Gross hematuria; I25.10 Atherosclerotic heart disease of native coronary artery without angina pectoris; I10 Essential (primary) hypertension; E78.5 Hyperlipidemia, unspecified; E55.9 Vitamin D deficiency, unspecified; M19.90 Unspecified osteoarthritis, unspecified site; Z66 Do not resuscitate; Z95.1 Presence of aortocoronary bypass graft; Z87.11 Personal history of peptic ulcer disease; Z87.440 Personal history of urinary (tract) infections; Z87.891 Personal history of nicotine dependence; Z89.022 Acquired absence of left finger(s); Z79.2 Long term (current) use of antibiotics; Z79.82 Long term (current) use of aspirin; Z79.899 Other long term (current) drug therapy
CPT/HCPCS: 36415; 51702; 80053; 81001; 85025; 87086; 99283

== ENCOUNTER 2024-06-07 22:26 | Emergency (ER) | payer OTHER, SELFPAY ==
--- NOTE | ~2024-06-07 | CT_ITS ---
EXAMINATION: CT abdomen pelvis wo/w con DATE: 06/08/2024 01:26 INDICATION: Hematuria. TECHNIQUE: Computed tomography (CT) of the abdomen and pelvis was performed without and with intraven ous contrast using a total of 130 mL Omnipaque-350 intravenous contrast with a double-bolus technique for simultaneous opacification of the renal parenchyma and renal collecting system. Automated exposu re control and iterative reconstruction technique were employed. The dose-length product was 2060.81 mGy-cm. COMPARISON: CT abdomen and pelvis 10/16/2023 FINDINGS: The visualized portions of lung bases demonstrate mild atelectasis. A calcified left lung nodule is c onsistent with old granulomatous disease. No pleural effusion. Cardiomegaly is noted. No pericardial effusion. There are pacer wires in right atrium and right ventricle. The liver and gallbladder are no rmal. Calcifications in the spleen are consistent with old granulomatous disease. The pancreas, adren al glands, and kidneys are normal. There is no urolithiasis. The ureters are well opacified and are n ormal. The bladder is decompressed by a Lawton catheter. There is wall thickening of bladder. There is hematoma in the bladder lumen. There are no dilated loops of bowel. The appendix is not visualized. There is calcified atherosclerosis of the aorta and many of the other arteries. There are no patholog ically enlarged lymph nodes. The prostate is mildly enlarged. There is mild lumbar spondylosis. IMPRESSION: 1. Hematoma in the bladder lumen. 2. Bladder wall thickening, which may be secondary to chronic outlet obstruction. Malignancy is not e xcluded. Reviewed, dictated and finalized at location A. IMPRESSION: 1. Hematoma in the bladder lumen. 2. Bladder wall thickening, which may be secondary to chronic outlet obstructio n. Malignancy is not excluded.
[2024-06-07 22:32] VITALS: BP 136/61; PULSE 80; RESP 16; TEMP 36.1; O2SAT 99
[2024-06-07 23:12] LABS: Basophils Percent Auto 0.4 % (0.2-1.2); Eosinophils Absolute Auto 0.2 K/mm3 (0-0.3); Eosinophils Percent Auto 2.6 % (0-4.4); Hematocrit 31.6 % (42.0-52.0); Hemoglobin 10.4 g/dL (14.0-18.0); Immature Granulocyte Absolute 0.02 K/mm3 (0.00-0.031); Immature Granulocyte Percent A 0.2 % (0-0.5); Lymphocytes Absolute Auto 2.06 K/mm3 (0.9-3.2); Lymphocytes Percent Auto 22.5 % (18.3-44.2); Mean Corpuscular HGB Conc 32.9 g/dl (32-36); Mean Corpuscular Hemoglobin 30.1 pg (26-34); Mean Corpuscular Volume 91.3 fl (80-100); Mean Platelet Volume 9.6 fl (7.4-10.4); Monocytes Absolute Auto 0.8 K/mm3 (0.1-0.6); Monocytes Percent Auto 8.6 % (2.6-8.5); Neutrophils Percent Auto 65.7 % (45.5-73.1); Platelet Count Result 230 k/mm3 (150-375); Red Blood Count 3.46 M/mm3 (4.6-6.20); Red Cell Distribution Width 14.2 % (11.5-14.5); White Blood Count 9.2 K/mm3 (4.5-10.0)
[2024-06-07 23:24] LABS: Anion Gap 9 mmol/L (4-12); Blood Urea Nitrogen 20 mg/dL (9-20); Carbon Dioxide 25 mmol/L (22-30); Chloride 94 mmol/L (98-107); Estimated CRCL calculation 38 ml/min; Estimated Glomerular Filt Rate 57; Glucose 101 mg/dL (65-110); Potassium 4.5 mmol/L (3.4-5.0); Sodium 128 mmol/L (137-145)
[2024-06-07] MEDS: NACL 0.9% IRRIGATION POUR BOTTLE 500 ML (23:40)
--- NOTE | 2024-06-07 23:46 | ED.MALEGU ---
HPI - Male Genitourinary General Chief complaint: Urogenital-Male <Justine Barney PA-C - Last Filed: 06/08/24 02:56> Stated complaint: urinary issue <BRANDIN Vinson Last Filed: 06/08/24 02:56> Time Seen by Provider: 06/07/24 22:35 <BRANDIN Vinson Last Filed: 06/08/24 02:56> Source: patient <BRANDIN Vinson Last Filed: 06/08/24 02:56> Mode of arrival: ambulatory <BRANDIN Vinson Last Filed: 06/08/24 02:56> Limitations: no limitations <BRANDIN Vinson Last Filed: 06/08/24 02:56> History of Present Illness HPI Narrative: Patient is an 89-year-old male who presents the ED with report of hematuria. Patient reports chronic ongoing issues with urinary retention and gross hematuria. He currently has a Lawton catheter in place. This was most recently replaced in the ER on 05/23. He follows with Dr. Leon. States this afternoon, the catheter seem to stop draining for a period of time. He then began draining dark red blood. He has noticed several clots in the catheter tubing. He has not noticed any further urine draining since the blood worsened. He denies significant abdominal or back pain. Denies nausea, vomiting, fevers, dizziness, lightheadedness. Takes aspirin 81 mg daily, no other blood thinners. <BRANDIN Vinson Last Filed: 06/08/24 02:56> Related Data Home medications: Home Medications Medication Instructions Recorded Confirmed aspirin 81 mg tablet,delayed 81 mg PO DAILY 11/03/19 04/30/24 release niacin 500 mg tablet 500 mg PO DAILY 10/20/23 04/30/24 omega 3-yxu-hyb-fish oil 900 1 cap PO DAILY 10/20/23 04/30/24 mg-1,400 mg capsule,delayed release tamsulosin 0.4 mg capsule (Flomax) 0.4 mg PO BID 03/26/24 09/04/24 calcium carbonate (Tums) 200 mg PO PRN PRN Gastric Reflux 03/21/24 04/30/24 <Justine Barney PA-C - Last Filed: 06/08/24 02:56> Allergies/Adverse reactions: Allergies Allergy/AdvReac Type Severity Reaction Status Date / Time No Known Allergies Allergy Verified 04/30/24 09:37 <Justine Barney PA-C - Last Filed: 06/08/24 02:56> Review of Systems Review of Systems: All systems reviewed & are unremarkable except as noted in HPI. <Justine Barney PA-C - Last Filed: 06/08/24 02:56> All systems reviewed & are unremarkable except as noted in HPI and below <Justine Barney PA-C - Last Filed: 06/08/24 02:56> [facility] Past Medical History Medical History: Medical History Arthritis Benign prostatic hyperplasia Bradycardia Coronary artery disease Hearing loss Hemorrhoids Hyperlipidemia Hypertension Peptic ulcer Shingles UTI (urinary tract infection) Vitamin D deficiency <Justine Barney PA-C - Last Filed: 06/08/24 02:56> Surgical History Surgical History: Surgical History History of arthroscopy of both knees History of colonoscopy with polypectomy 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 History of vasectomy <Justine Barney PA-C - Last Filed: 06/08/24 02:56> Family History Family History: Family History Mother Family history of pancreatic cancer Patient's mother is Family history of malignant neoplasm of ovary Father Acute myocardial infarction Sibling Family history of primary malignant neoplasm of liver Family history of malignant neoplasm of kidney Other Family history of malignant neoplasm <Justine Barney PA-C - Last Filed: 06/08/24 02:56> Social History Social History: Social History Social History: Surrogate medical decision m
[2024-06-07 23:47] LABS: Add Urine Microscopic? YES
[2024-06-07 23:50] LABS: Appearance Urine Turbid (Clear); Color Urine Red (Yellow); RBC Urine >100 /hpf (0-2); Squamous Epithelial Cell Urine Unable to determine /hpf (Few)
[2024-06-08 00:32] VITALS: BP 127/65; PULSE 76; RESP 18; O2SAT 96
[2024-06-08] MEDS: SODIUM CHLORIDE 0.9% IV 1,000 ML 999 ML IV CONT (00:32)
[2024-06-08 03:18] VITALS: BP 139/61; PULSE 81; RESP 18; O2SAT 99
== END 2024-06-08 04:49 | disposition home or self-care (01) ==
PROVIDERS: Emergency Provider Physician Assistant; PCP Emergency Medicine
DX: R31.0 Gross hematuria (principal); T83.098A Other mechanical complication of other urinary catheter, initial encounter; I25.10 Atherosclerotic heart disease of native coronary artery without angina pectoris; I10 Essential (primary) hypertension; E78.5 Hyperlipidemia, unspecified; E55.9 Vitamin D deficiency, unspecified; N40.0 Benign prostatic hyperplasia without lower urinary tract symptoms; M19.90 Unspecified osteoarthritis, unspecified site; Z95.1 Presence of aortocoronary bypass graft; Z87.11 Personal history of peptic ulcer disease; Z89.022 Acquired absence of left finger(s); Y84.6 Urinary catheterization as the cause of abnormal reaction of the patient, or of later complication, without mention of misadventure at the time of the procedure; Z79.82 Long term (current) use of aspirin; Z79.899 Other long term (current) drug therapy
CPT/HCPCS: 36415; 51700; 74178; 80048; 81001; 85025; 87086; 96360; 99284; J7030; Q9967

== ENCOUNTER 2024-06-26 00:47 | Day surgery (SDC) | payer OTHER, SELFPAY ==
--- NOTE | 2024-06-13 12:02 | P.HP_ITS ---
H&P: HPI History of Present Illness Date/Time: 06/13/24 12:02 Chief Complaint: Urinary retention Narrative: 81-year-old man a longstanding patient of ours with history of bladder outlet obstruction secondary BPH. More recently he has developed urinary retention. This has become refractory to combination therapy for BPH. In August 2023 his prostate size was 71 g we started. it shrunk to 45 g. Urodynamics revealed good detrusor function with outlet obstruction. After discussion options he is anxious to proceed with TURP and is aware the risk including, but not limited to, hematuria, persistent retention, need additional procedures. Review of Systems Cardiovascular: Cardiovascular: Denies chest pain, Denies lightheadedness, Denies palpitations and Denies dyspnea Respiratory: Respiratory: Denies dyspnea Gastrointestinal: Gastrointestinal: Denies diarrhea, Denies nausea and Denies vomiting Genitourinary: Genitourinary: Denies hematuria and Denies dysuria Endocrine: Endocrine: Denies palpitations PMFSH Past Medical History Medical History Arthritis Benign prostatic hyperplasia Bradycardia Coronary artery disease Lawton catheter in place Hearing loss Hemorrhoids Hyperlipidemia Hypertension Peptic ulcer Shingles Urinary retention UTI (urinary tract infection) Vitamin D deficiency Surgical History Surgical History History of arthroscopy of both knees History of colonoscopy with polypectomy 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 History of vasectomy Family History Family History Mother Family history of pancreatic cancer Patient's mother is Family history of malignant neoplasm of ovary Father Acute myocardial infarction Sibling Family history of primary malignant neoplasm of liver Family history of malignant neoplasm of kidney Other Family history of malignant neoplasm Social History Social History (Updated 06/13/24 @ 10:04 by Renee Haywood MA) Social History: Surrogate medical decision maker: Elly Rose, spouse. Code status: DNR/DNR per discussion 03/21/24 (intubation ok for anesthesia during pacemaker placement) Smoking packs per day: 1 Smoking cigarettes per day: 20.0 Smoking status: Former smoker Tobacco type: cigarettes Second hand tobacco smoke exposure: No Smoking end date: 08/27/85 Alcohol intake: current Drinks per week: 10 Substance use: never Substance use type: does not use Current Housing: Decline to Answer Concerned About Future Housing: Decline to Answer Difficulty Paying Gas/Electric Bills: Decline to Answer Difficulty Paying for Meds: Decline to Answer Currently Unemployed: Decline to Answer Education: Decline to Answer Difficulty w/ Childcare or Family Care: Decline to Answer Living arrangements: with family Occupation/Education: retired Spiritual care concerns: No Meds Home Medications and Allergies Home Medications Medication Instructions Recorded Confirmed Type aspirin 81 mg tablet,delayed 81 mg PO DAILY 11/03/19 06/13/24 History release niacin 500 mg tablet 500 mg PO DAILY 10/20/23 06/13/24 History omega 0-mse-pry-fish oil 900 1 cap PO DAILY 10/20/23 06/13/24 History mg-1,400 mg capsule,delayed release tamsulosin 0.4 mg capsule (Flomax) 0.4 mg PO BID 11/20/23 06/13/24 History lisinopril 30 mg tablet See Rx Instructions .Route 01/03/24 06/13/24 Rx .COMPLEX #180 tabs cholecalciferol (vitamin D3) 1,250 1,250 mcg PO WEEKLY #12 caps 01/09/24 06/13/24 Rx mcg (50,000 unit) capsule amlodipine 5 mg tablet See Rx Instructions .Route 03/18/24 06/13/24 Rx .COMPLEX #90 tabs atorvastatin 80 mg tablet See Rx Instructions .Route 03/18/24 06/13/24 Rx .COMPLEX #90 tabs calcium carbonate (Tums) 200 mg PO PRN PRN Gastric Reflux 03/21/24 06/13/24 History Allergies Allergy/AdvReac Type Severity Reaction Status Date / Time No Known Allergies Allergy Verified 06/13/24 10:04 Exam Const: General: no acute distress Resp: Effort & Inspection: normal respiratory effort GI: Inspection: non-distended GI Palp: No abdominal tenderness and No Guarding due to palpation present (GI) Auscultation: normal bowel sounds Assessment and Plan Assessment and plan (1) BPH w urinary obs/LUTS: Code(s): N40.1 - Benign prostatic hyperplasia with lower urinary tract symptoms; N13.8 - Other obstructive and reflux uropathy Status: Acute Assessment and Plan: * TURP
--- NOTE | 2024-06-19 09:35 | PC.NURSE ---
Report to the Outpatient Waiting Room, entrance under the green pavilion located off [facility], at time _9:15 AM on date _06/26/24 . Planned Procedure Time: __11:15 AM .? Time changes happen often and if your time is changed the preop area will call you the afternoon before. - You and your visitor will be asked to self-screen and do not enter if you have any COVID symptoms. Please call surgeon if you need to reschedule. - A mask is optional within the hospital at this time. Patients may have clear liquids (water, carbonated beverages, clear teas, apple juice) until 3 hours prior to surgery( 8:15 AM) with a maximum of 20 ounces. - No food from midnight until time of surgery and no smoking - Infants may have breast milk until 4 hours before surgery, formula 6 hours prior to surgery. - Children will be allowed to drink immediately following surgery.? If applicable, please bring a bottle or sippy cup to assist with drinking. Juice, water, soda, and popsicles are readily available.? For infants on formula, please bring formula the day of surgery.? Pacifiers are allowed. Take only the following medications with a SIP of water on the morning of surgery: _AMLODIPINE,CEPHALEXIN DO NOT STOP ANY OF YOUR OTHER PRESCRIPTION MEDICATIONS PRIOR TO SURGERY EXCEPT THE FOLLOWING Medications to discontinue per physician _WIFE STATES HOLD ASPIRIN AND ALL VITAMINS AND SUPPLEMENTS 7 DAYS PRE OP PER DR DAVE.LAST DOSE 06/18/24 Please no make-up, nail japanese, hairspray, perfume, deodorant, or body powder the day of surgery.? No jewelry (including any body piercings) or valuables the day of surgery, leave them at home.? Please take a shower or bath the night before, or the morning of, surgery with an antibacterial soap.? Wear comfortable, loose fitting clothing.? Children are encouraged to wear pajamas. - Jewelry must be removed prior to entering the operating room.? Rings and piercings that are not removed may be cut off. - The hospital will not accept responsibility for valuables.? - Please leave all valuables, including medications, at home the day of surgery. If you are going home after surgery, a licensed courtesy car driver must drive you home.? - NO public transportation without another adult if you receive anesthesia. - We recommend that an adult stay with you for 24 hours following discharge. - We also recommend that you do not drive, make important decision, drink alcoholic beverages, or take any drugs that were not prescribed by your health care provider for at least 24 hours after your discharge time. For Pediatric surgeries, we recommend two adults accompany the child home. Follow any additional instructions given to you from your surgeon. Telephone instructions given to __WIFE DENYS and asked if any additional questions and then verbalized understanding. Patient advised to call surgeon office or pre surgery nurse liaison [phone] if any additional questions.
[2024-06-19 09:42] VITALS: BMI 29.5
[2024-06-26] VITALS (15 sets, daily range): BP systolic 101–131; BP diastolic 44–80; PULSE 62–90; RESP 12–21; TEMP 35.9–36.9; O2SAT 94–100; BMI 29.9
--- NOTE | 2024-06-26 06:14 | WPDHPUPDATE1 ---
History and Physical Update Update Date/Time: 06/26/24 06:14 History and Physical has been reviewed, including an updated exam of the patient. There are NO changes in the patient's condition. Risks, benefits, and alternatives have been discussed and questions answered. Patient agrees to proceed with procedure.
--- NOTE | 2024-06-26 09:24 | WPDANESEPPF ---
Anes - Initial Pre Proc Eval Procedure: Operation Date: 06/26/24 11:15 Proposed Procedures p Trans Urethral Resection Prostate - Feroz Leon MD Date/Time: 06/26/24 09:24 Surgeon: Feroz Leon MD Pre Op Diagnosis: BPH, Rentention of Urine, Gross Hematuria Patient Data Age: 89 Gender: M Height: 1.75 m Weight: 90.75 kg Allergies Allergy/AdvReac Type Severity Reaction Status Date / Time No Known Allergies Allergy Verified 06/26/24 09:24 Home Medications Medication Instructions Recorded Confirmed Type aspirin 81 mg tablet,delayed 81 mg PO DAILY 11/03/19 06/19/24 History release niacin 500 mg tablet 500 mg PO DAILY 10/20/23 06/19/24 History omega 6-gti-qlt-fish oil 900 1 cap PO DAILY 10/20/23 06/19/24 History mg-1,400 mg capsule,delayed release tamsulosin 0.4 mg capsule (Flomax) 0.4 mg PO BID 11/20/23 06/19/24 History lisinopril 30 mg tablet See Rx Instructions .Route 01/03/24 06/19/24 Rx .COMPLEX #180 tabs cholecalciferol (vitamin D3) 1,250 1,250 mcg PO WEEKLY #12 caps 01/09/24 06/19/24 Rx mcg (50,000 unit) capsule amlodipine 5 mg tablet See Rx Instructions .Route 03/18/24 06/19/24 Rx .COMPLEX #90 tabs atorvastatin 80 mg tablet See Rx Instructions .Route 03/18/24 06/19/24 Rx .COMPLEX #90 tabs cephalexin 250 mg capsule 250 mg PO DAILY 06/19/24 06/19/24 History finasteride 5 mg tablet 5 mg PO DAILY 06/19/24 06/19/24 History hydrocodone 5 mg-acetaminophen 325 1 tablet PO Q6-8H PRN Pain 06/20/24 06/20/24 History mg tablet ECG: ELECTRONIC ATRIAL PACEMAKER INTRAVENTRICULAR CONDUCTION DELAY CONSIDER INFERIOR INFARCT, AGE INDETERMINATE ST-T WAVE ABNORMALITY IN HIGH LATERAL LEADS- CONSIDER ISCHEMIA BASELINE ARTIFACT- I, II, III, AVL, AVF ABNORMAL ECG Patient hx anesthesia problems: none Family hx anesthesia problems: none Results Review: All pre-operative results and documents have been reviewed as part of the pre-operative evaluation. [facility], [facility] Past Medical History Medical History (Updated 10/31/24 @ 09:30 by Mic Ruelas Jr., CRNA) Acute UTI Arthritis Benign prostatic hyperplasia BPH (benign prostatic hyperplasia) Bradycardia Bradycardia CAD (coronary artery disease) of artery bypass graft Coronary artery disease Lawton catheter in place Hearing loss Hemorrhoids HTN (hypertension) Hx of lower gastrointestinal bleeding Hyperlipidemia Hypertension Incomplete RBBB Pacemaker Peptic ulcer Shingles Urinary retention UTI (urinary tract infection) Vitamin D deficiency Surgical History Surgical History History of arthroscopy of both knees History of colonoscopy with polypectomy 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 History of vasectomy Family History Family History Mother Family history of pancreatic cancer Patient's mother is Family history of malignant neoplasm of ovary Father Acute myocardial infarction Sibling Family history of primary malignant neoplasm of liver Family history of malignant neoplasm of kidney Other Family history of malignant neoplasm Social History Social History Social History: Surrogate medical decision maker: Elly Rose, spouse. Code status: DNR/DNR per discussion 03/21/24 (intubation ok for anesthesia during pacemaker placement) Smoking packs per day: 0.5 Smoking cigarettes per day: 10.0 Years smoked: 30 Smoking pack-years: 15.00 Smoking status: Former smoker Tobacco type: cigarettes Second hand tobacco smoke exposure: No Smoking end date: 08/27/85 Alcohol intake: current Drinks per week: 7 Substance use: never Substance use type: does not use Current Housing: Decline to Answer Concerned About Future Housing: Decline to Answer Difficulty Paying Gas/Electric Bills: Decline to Answer Difficulty Paying for Meds: Decline to Answer Currently Unemployed: Decline to Answer Education: Decline to Answer Difficulty w/ Childcare or Family Care: Decline to Answer Living arrangements: with family Occupation/Education: retired Spiritual care concerns: No Anes - Eval Final PreProcedure Day of Procedure 06/26/24 09:24 Patient weight: overweight Heart: other (Pacer) Lungs: clear to auscultation Airway: Mallampati scale class II Last oral intake: >/= 8 hours ASA classification: III Anesthetic plan: proceed Anesthesia type and monitoring: general LMA Results Review: All pre-operative results and documents have been reviewed as part of the pre-operative evaluation. Informed Consent: The patient's anesthetic plan and its attendant risks and benefits were discussed with the patient/family/POA. Questions were solicited and answers provided to the satisfaction of the patient/family/POA.
[2024-06-26] MEDS: LACTATED RINGERS 1,000 ML 30 ML IV CONT (10:00)
[2024-06-26] MEDS: ceFAZolin 2 GM/D5W 50 ML 2 GM/50 ML BAG IVPB (12:05)
[2024-06-26] MEDS: LIDOCAINE HCL 2% GEL UROJET 10 ML PKG MUCOUS MEM (12:15)
--- NOTE | 2024-06-26 13:17 | W.PM.PROC2 ---
Procedure Note - Detailed Date of Procedure 06/26/24 Pre-op Diagnosis BPH, Rentention of Urine, Gross Hematuria Post-op Diagnosis Same Procedure Performed TURP Surgeon Feroz Leon MD Anesthesia General Description of Procedure The patient was brought to the operative suite where he is prepped and draped in routine sterile fashion while in the dorsal lithotomy position after the uneventful induction of a general LMA anesthetic. A 27 Uzbek resectoscope sheath was placed into his bladder. He had no urethral strictures. The patient had trilobar hyperplasia with a moderate median lobe. The bladder itself was endoscopically normal, showing no mucosal hyperemia, intravesical neoplasm or foreign bodies. There was a single, orthotopic ureteral orifice bilaterally. These orifices were identified and preserved throughout the remainder of the procedure. Attention was first turned to resection of the median lobe. This resection was undertaken from the bladder neck to the verumontanum and carried out until the transverse fibers of the bladder neck were identified. The left lateral lobe was then resected starting at the 6 o'clock position, working counter clockwise to the 12 o'clock position. Again, resection was carried out from the bladder neck to the verumontanum until the capsular fibers of the prostate were identified. The right lateral lobe was resected in a similar fashion starting at the 6 o'clock position working clockwise to the 12 o'clock position and carried out until the capsular fibers of the prostate were identified. Apical tissue was then circumferentially resected. All chips were evacuated from the bladder using an [employer] evacuator. Hemostasis was obtained with electric cautery. The ureteral orifices were again inspected and found to be without injury. Estimated blood loss throughout this procedure was 100cc. The patient was taken to recovery room having tolerated this well. Drains Yes Packing No Pathology Yes Complications No immediate complications Condition Stable
[2024-06-26] MEDS: fentaNYL CITRATE INJ (*CRX) 100 MCG/2 ML VIAL 25 MCG IV PUSH ×3 (13:20→13:35)
--- NOTE | 2024-06-26 16:00 | PC.NURSE ---
This patient, Gómez Rose, was admitted to [facility] Room 313-01. Patient/family oriented to hospital policies and general routines including ID bracelet, bed and alarms, visiting hours, pain management, procedures, bathroom and other care routines, personal items, smoking policy, room service/diet, and visiting hours. Information on how to activate the Rapid Response Team has been discussed. Patient/Family are encouraged to report perceived risks to care and to ask questions if they do not understand what they are told or what they should do.
[2024-06-26] MEDS: DEXTROSE 5%/LACTATED RINGERS 1,000 ML 125 ML IV CONT (16:51)
[2024-06-26] MEDS: DOCUSATE SODIUM 100 MG CAPSULE PO (16:52)
[2024-06-26] MEDS: ceFAZolin 1 GM/NS 50 ML 1 GM/50 ML BAG IVPB (20:33)
[2024-06-26] MEDS: lisinopriL 10 MG TABLET 30 MG BY MOUTH (21:24)
[2024-06-27] MEDS: ceFAZolin 1 GM/NS 50 ML 1 GM/50 ML BAG IVPB (04:13)
[2024-06-27 04:38] VITALS: BP 113/49; PULSE 71; RESP 18; TEMP 36.8; O2SAT 100
[2024-06-27 06:24] LABS: Hematocrit 24.8 % (42.0-52.0); Hemoglobin 7.7 g/dL (14.0-18.0)
[2024-06-27 06:35] LABS: Anion Gap 9 mmol/L (4-12); Blood Urea Nitrogen 16 mg/dL (9-20); Calcium 8.8 mg/dL (8.4-10.2); Carbon Dioxide 27 mmol/L (22-30); Chloride 102 mmol/L (98-107); Estimated CRCL calculation 46 ml/min; Estimated Glomerular Filt Rate > 60; Glucose 117 mg/dL (65-110); Potassium 4.3 mmol/L (3.4-5.0); Sodium 138 mmol/L (137-145)
--- NOTE | 2024-06-27 06:55 | P.PNUR_ITS ---
Progress Note: A&P Assessment and Plan (1) BPH (benign prostatic hyperplasia): Code(s): N40.0 - Benign prostatic hyperplasia without lower urinary tract symptoms Status: Acute Assessment and Plan: * Stop CBI this morning and anticipate voiding trial mid morning if urine remains clear Subjective Subjective Date/Time Seen: 06/27/24 06:55 Interval history: Comfortable, uneventful night Review of Systems Cardiovascular: Cardiovascular: Denies chest pain, Denies lightheadedness, Denies palpitations and Denies dyspnea Respiratory: Respiratory: Denies dyspnea Gastrointestinal: Gastrointestinal: Denies diarrhea, Denies nausea and Denies vomiting Genitourinary: Genitourinary: Denies hematuria and Denies dysuria Endocrine: Endocrine: Denies palpitations Exam Const: General: no acute distress Resp: Effort & Inspection: normal respiratory effort GI: Inspection: non-distended GI Palp: No abdominal tenderness and No Guarding due to palpation present (GI) Auscultation: normal bowel sounds Urinary Catheter: Urinary Catheter: patent and draining and urine clear Objective Data Vital Signs Vital Signs: Vital Signs - 24 hr 06/26/24 09:41 06/26/24 13:15 06/26/24 13:30 Temperature 97.6 F 98.2 F Pulse Rate 72 76 90 Respiratory Rate 20 21 H 16 Blood Pressure 129/55 L 103/55 L 127/74 Pulse Oximetry 100 100 100 Oxygen Delivery Room Air Simple Face Mask Simple Face Mask Oxygen Flow Rate 6 6 06/26/24 13:45 06/26/24 14:00 06/26/24 14:40 Temperature Pulse Rate 84 85 83 Respiratory Rate 16 16 18 Blood Pressure 131/78 118/63 114/72 Pulse Oximetry 100 97 94 Oxygen Delivery Room Air Room Air Room Air Oxygen Flow Rate 06/26/24 14:15 06/26/24 15:00 06/26/24 15:40 Temperature 97.0 F L Pulse Rate 82 89 80 Respiratory Rate 16 18 12 Blood Pressure 126/68 125/62 114/80 Pulse Oximetry 95 96 96 Oxygen Delivery Room Air Room Air Room Air Oxygen Flow Rate 06/26/24 15:51 06/26/24 16:06 06/26/24 16:36 Temperature 96.7 F L 96.9 F L 96.6 F L Pulse Rate 66 65 66 Respiratory Rate 16 16 16 Blood Pressure 122/51 L 112/47 L 113/46 L Pulse Oximetry 98 100 100 Oxygen Delivery Oxygen Flow Rate 06/26/24 17:36 06/26/24 20:10 06/26/24 20:00 Temperature 96.8 F L 97.6 F Pulse Rate 62 66 Respiratory Rate 16 20 Blood Pressure 101/44 L 113/59 L Pulse Oximetry 100 100 Oxygen Delivery Room Air Oxygen Flow Rate 06/26/24 23:53 06/27/24 04:38 Temperature 98.5 F 98.3 F Pulse Rate 63 71 Respiratory Rate 18 18 Blood Pressure 121/79 113/49 L Pulse Oximetry 100 100 Oxygen Delivery Oxygen Flow Rate Intake/Output Intake/Output: Intake & Output 06/24/24 06/25/24 06/26/24 06/27/24 23:59 23:59 23:59 23:59 Intake Total 5480 590 Output Total 5904 9734 Balance -420 -1083 Meds/Results Medications: Active Medications Generic Name Dose Route Start Last Admin Trade Name Freq PRN Reason Stop Dose Admin Hydrocodone Bitart/Acetaminophen 1 tab 06/26/24 15:51 Hydrocodone/Acetaminophen (*Crx) 5-325 Mg Tablet PO Q4H PRN Pain Rated 1-6 Amlodipine Besylate 5 mg 06/27/24 09:00 Amlodipine Besylate 5 Mg Tablet BY MOUTH DAILY [facility] Atorvastatin Calcium 80 mg 06/27/24 09:00 Atorvastatin 40 Mg Tablet BY MOUTH DAILY [facility] Cephalexin HCl 500 mg 06/27/24 09:00 Cephalexin 500 Mg Capsule PO QID [facility] Docusate Sodium 100 mg 06/26/24 17:00 06/26/24 16:52 Docusate Sodium 100 Mg Capsule PO 100 mg BID [facility] Administration Hyoscyamine 0.125 mg 06/26/24 15:51 Hyoscyamine Sulfate 0.125 Mg Tablet SUBLINGUAL Q6H PRN Bladder Spasm Lisinopril 30 mg 06/26/24 21:00 06/26/24 21:24 Lisinopril 10 Mg Tablet BY MOUTH 30 mg Q12HR [facility] Administration Morphine Sulfate 2 mg 06/26/24 15:51 Morphine Sulfate (*Crx) 2 Mg/Ml Inj IV PUSH Q2H PRN Pain Rated 7-10 Naloxone HCl 0.1 mg 06/26/24 15:51 Naloxone Hcl 0.4 Mg/Ml Vial IV PUSH Q2M PRN Opiate Reversal Niacin 500 mg 06/27/24 09:00 Niacin Sa 500 Mg Tablet PO DAILY [facility] Ondansetron HCl 4 mg 06/26/24 15:51 Ondansetron Inj 4 Mg/2 Ml Vial IV PUSH Q12H PRN Nausea And Vomiting Labs Labs: Laboratory Results - last 24 hr 06/27/24 06:02 Hgb 7.7 L Hct 24.8 L Sodium 138 Potassium 4.3 Chloride 102 Carbon Dioxide 27 Anion Gap 9 BUN 16 Creatinine 1.10 Estim Creat Clear Calc 46 Estimated GFR > 60 Glucose 117 H Calcium 8.8
[2024-06-27 09:36] VITALS: BP 115/43; PULSE 68; RESP 18; TEMP 36.6; O2SAT 100
[2024-06-27] MEDS: CEPHALEXIN 500 MG CAPSULE PO (10:01)
[2024-06-27] MEDS: DOCUSATE SODIUM 100 MG CAPSULE PO (10:02)
[2024-06-27] MEDS: lisinopriL 10 MG TABLET 30 MG BY MOUTH (10:02)
[2024-06-27] MEDS: ATORVASTATIN 40 MG TABLET 80 MG BY MOUTH (10:03)
[2024-06-27] MEDS: amLODIPine BESYLATE 5 MG TABLET BY MOUTH (10:03)
[2024-06-27] MEDS: NIACIN SA 500 MG TABLET PO (10:03)
[2024-06-27 12:52] VITALS: BP 102/49; PULSE 75; RESP 18; TEMP 36.1; O2SAT 100
--- NOTE | 2024-06-27 13:06 | PM.DS ---
DS: Admitting Diagnosis Discharge Date 06/27/2024 Admitting Diagnosis Urinary retention due to BPH DS: Discharge Diagnosis Discharge Diagnosis (1) BPH (benign prostatic hyperplasia): Code(s): N40.0 - Benign prostatic hyperplasia without lower urinary tract symptoms Status: Acute DS: Summary Hospital Course Hospital Course: This patient with longstanding prostatism refractory for medical management was admitted on the morning of his planned TURP. The procedure was undertaken on that same day in an uneventful fashion. His post-operative course was, likewise, uneventful. On the evening of the procedure he was tolerating a diet. On POD#1 his urine was clear on CBI. The urine remained clear and, therefore, the catheter was removed late morning. The patient was observed for several hours, until he demonstrated he could void effectively without significant hematuria. He was discharged with careful instruction on limiting physical activity x2 weeks and plans to f/ in 2-3 weeks. At discharge he was comfortable and tolerating a diet. Post-op drop in H/H felt to be due to hemodilution as patient lost little blood either during procedure or post-operatively. This will be re-checked at the time of follow-up. Time Spent with Patient Time attestation: Total time spent providing and/or coordinating discharge services: DS: Data Data Completed and Pending Pending studies at discharge: Pending at discharge 06/26/24 13:08 Surgical [PTH] Routine Labs on day of discharge: Labs from last 24 hours 06/27/24 06:02 Hgb 7.7 L Hct 24.8 L Sodium 138 Potassium 4.3 Chloride 102 Carbon Dioxide 27 Anion Gap 9 BUN 16 Creatinine 1.10 Estim Creat Clear Calc 46 Estimated GFR > 60 Glucose 117 H Calcium 8.8 Discharge Plan Discharge Attending physician on discharge: Feroz Leon Discharging Clinician: Feroz Leon Patient Disposition: Home, Self-Care Discharge Instructions: 1) Activity: No lifting/straining >15lbs. x2 weeks. 2) Diet: Resume normal pre-admission diet. 3) Follow-up: 2-3 weeks / call office for appointment ([phone]). Stand Alone Forms: General Discharge Instructions Discharge Medications: New docusate sodium [Colace] 100 mg capsule 100 mg PO DAILY Qty: 30 0RF hydrocodone-acetaminophen 5-325 mg tablet 1 - 2 tablet PO Q6H PRN (Reason: pain) Qty: 20 0RF cephalexin 500 mg capsule 500 mg PO Q8H Qty: 9 0RF Continued cephalexin 250 mg capsule 250 mg PO DAILY hydrocodone-acetaminophen 5-325 mg tablet 1 tablet PO Q6-8H PRN (Reason: Pain) niacin 500 mg Tablet 500 mg PO DAILY lisinopril 30 mg tablet See Rx Instructions .ROUTE .COMPLEX Qty: 180 2RF Dose Instruction: TAKE 1 TABLET BY MOUTH TWICE A DAY Rx Instructions: TAKE 1 TABLET BY MOUTH TWICE A DAY cholecalciferol (vitamin D3) 1,250 mcg (50,000 unit) capsule 1,250 mcg PO WEEKLY Qty: 12 2RF Patient Comments: TAKES ON SUNDAY amlodipine 5 mg tablet See Rx Instructions .ROUTE .COMPLEX Qty: 90 1RF Dose Instruction: TAKE 1 TABLET BY MOUTH EVERY DAY Rx Instructions: TAKE 1 TABLET BY MOUTH EVERY DAY atorvastatin 80 mg tablet See Rx Instructions .ROUTE .COMPLEX Qty: 90 2RF Dose Instruction: TAKE 1 TABLET BY MOUTH EVERY DAY Rx Instructions: TAKE 1 TABLET BY MOUTH EVERY DAY Held aspirin 81 mg tablet,delayed release (DR/EC) 81 mg PO DAILY Hold Instructions: Resume on 07/03/24. omega 2-bqc-vjt-fish oil 900-1,400 mg Capsule,Delayed Release(Dr/Ec) 1 cap PO DAILY Hold Instructions: Resume on 07/03/24. Discontinued tamsulosin [Flomax] 0.4 mg capsule 0.4 mg PO BID finasteride 5 mg tablet 5 mg PO DAILY Attending physician on admission: Feroz Leon
== END 2024-06-27 14:00 | disposition home health service (06) ==
LOC: ANHSURGERY 09:12 → ANH3MEDSUR 15:55
PROVIDERS: PCP Emergency Medicine; Visit Provider Urology
PROC: 0VT08ZZ Resection of Prostate, Via Natural or Artificial Opening Endoscopic (ICD-10-PCS; CPT 52601; principal; 2024-06-26 11:15)
DX: C61 Malignant neoplasm of prostate (principal); N41.1 Chronic prostatitis; R33.9 Retention of urine, unspecified; E78.5 Hyperlipidemia, unspecified; I10 Essential (primary) hypertension; E55.9 Vitamin D deficiency, unspecified; I25.10 Atherosclerotic heart disease of native coronary artery without angina pectoris; Z79.82 Long term (current) use of aspirin; Z98.890 Other specified postprocedural states; Z95.5 Presence of coronary angioplasty implant and graft; Z95.0 Presence of cardiac pacemaker; Z89.022 Acquired absence of left finger(s); Z87.891 Personal history of nicotine dependence; Z86.79 Personal history of other diseases of the circulatory system; Z80.0 Family history of malignant neoplasm of digestive organs; Z80.41 Family history of malignant neoplasm of ovary; Z80.51 Family history of malignant neoplasm of kidney; Z82.49 Family history of ischemic heart disease and other diseases of the circulatory system
CPT/HCPCS: 52601; 36415; 80048; 85014; 85018; 88305; 88342; A9270; C1758; J0690; J1100; J2003; J2405; J2704; J3010; J7120; J7121

== ENCOUNTER 2024-08-05 10:23 | Outpatient (CLI) | payer OTHER, SELFPAY ==
--- NOTE | ~2024-08-05 | PE_ITS ---
EXAMINATION: PET skull to mid thigh DATE: 08/05/2024 12:56 INDICATION: Urothelial cancer TECHNIQUE: Blood glucose level was 104 mg/dL. 10.234 mCi of 18-fluorodeoxyglucose (18-FDG) was admini stered i.v. Low dose computed tomography (CT) images were acquired from the base of the brain to the proximal thighs for attenuation correction and anatomic localization. Positron emission tomography (P ET) images were acquired in the same distribution beginning 56 minutes after injection. Images includ ing fused PET/CT images were reconstructed in axial, coronal, and sagittal planes. Automated exposure control technique was employed. The dose-length product was 1212.88mGy-cm. COMPARISON: CT dated 06/08/2024 FINDINGS: Head/neck: There is symmetric increased activity in the oral cavity, submandibular glands and ocular muscles wit hout CT correlate, likely physiologic. There is also likely physiologic uptake along the right longus capitis muscle without radiologic correlate. 2.7 x 2.3 cm FDG avid mass with maximal severe 4.7 situ ated between the right thyroid lobe and the right common carotid artery which could represent either a lymph node or more likely thyroid nodule. No other pathologically enlarged cervical lymphadenopathy or suspicious foci of increased FDG uptake in the visualized head or neck. Chest: Calcified left lower lobe nodule along with calcified left hilar and mediastinal lymph nodes consiste nt with old granulomatous disease. Lung volumes are small with dependent atelectasis in the bilateral lower lobes likely related to expiratory phase of imaging with concave posterior margin to the trach ea and mainstem bronchi. No suspicious pulmonary nodules, pneumonia, pulmonary edema or pleural effus ion. Cardiomegaly. Atherosclerotic coronary artery calcification. Dual-lead cardiac pacemaker with le ad tips at the right atrial appendage and at the apex of the right ventricle. No pericardial effusion . Thoracic aorta is normal in caliber. No pathologically enlarged or FDG avid thoracic lymphadenopath y. Bilateral gynecomastia. Abdomen/pelvis/proximal thighs: Physiologic renal accumulation and excretion of FDG activity in the kidneys, bladder and along portio ns of ureters. There is diffuse irregular wall thickening of the bladder consistent with provided his tory of urothelial cancer. There is mild stranding in the fat surrounding the bladder. Mildly enlarge d and moderately FDG avid right external iliac chain lymph node which measures 11 mm in maximal short axis diameter with maximal SUV of 15.4 which is likely metastatic. There is mild FDG uptake such wit h a few additional still normal-sized pelvic lymph nodes, the next largest and most FDG avid at the l eft external iliac chain measuring 8 mm in maximal short axis diameter with maximal SUV of 3.3, equiv ocal for additional metastatic disease. Normal degree and heterogenous pattern of increased uptake throughout the liver without radiologic co rrelate or dominant FDG avid lesion. The gallbladder, pancreas and bilateral adrenal glands are chirag l. Numerous splenic calcific lesions consistent with old granulomatous disease. Mild uptake scattered throughout the bowels without radiologic correlate, also likely physiologic. Normal appendix. There is calcified atherosclerosis of the aorta and many of the other arteries. No other abnormal foci of increased FDG uptake or other pathologically enlarged lymphadenopathy in the abdomen, pelvis or proxi mal thighs. Musculoskeletal: No suspicious lytic, blastic or abnormally FDG avid bone lesions. IMPRESSION: 1. Irregular bladder wall thickening consistent with reported urothelial carcinoma. 2. Mildly enlarged and moderately FDG avid left external iliac chain lymph node consistent with metas tatic disease. There are a few additional still normal-sized mildly FDG avid pelvic lymph nodes which remain equivocal for additional early metastatic disease. Reviewed, dictated and finalized at location [facility] IMPRESSION: 1. Irregular bladder wall thickening consistent with reported urothelial carcin rajesh. 2. Mildly enlarged and moderately FDG avid left external iliac chain lymph node consistent with metastatic disease. There are a few additional still normal-si zed mildly FDG avid pelvic lymph nodes which remain equivocal for additional ea rly metastatic disease.
[2024-08-05 11:09] LABS: Glucose Point of Care 104 mg/dl (65-105)
== END 2024-08-05 10:24 | disposition home or self-care (01) ==
LOC: ANHIMG 10:26
PROVIDERS: PCP Emergency Medicine; Visit Provider Urology
DX: C67.8 Malignant neoplasm of overlapping sites of bladder (principal); R59.9 Enlarged lymph nodes, unspecified
CPT/HCPCS: 78815; A9552

== ENCOUNTER 2025-01-29 12:30 | Outpatient (RCR) | payer OTHER, SELFPAY | END 2025-03-20 13:55 | disposition home or self-care (01) | LOC: ANHCPREHAB 12:30 | PROVIDERS: PCP Emergency Medicine | DX: Z98.61 Coronary angioplasty status (principal) | CPT/HCPCS: 93798 ==

== ENCOUNTER 2025-07-01 17:06 | Emergency (ER) | payer OTHER, SELFPAY ==
[2025-07-01] VITALS (11 sets, daily range): BP systolic 78–99; BP diastolic 57–63; PULSE 60–114; RESP 14–23; TEMP 36.4–36.6; O2SAT 95–100
--- NOTE | ~2025-07-01 | XR_ITS ---
EXAM/PROCEDURE: XR chest 2V HISTORY: Cardiac history COMPARISON: None available. TECHNIQUE: Two view(s) of the chest. FINDINGS: Sternotomy wires. A pacing device enters from the right has leads in the right atrium and right ventricle. LUNGS: Clear of acute processes. PLEURAL SPACES: Clear. No evidence of fluid or pneumothorax. HEART/ MEDIASTINUM: Cardiomegaly. SOFT TISSUES: No significant findings. BONES: Findings consistent with DISH. There are multiple minimal to mild wedging deformities in the vertebral bodies. IMPRESSION: No acute findings. Reviewed, dictated and finalized at location A. [facility] PATHOLOGIST IMPRESSION: No acute findings.
--- NOTE | 2025-07-01 17:46 | ECG_ITS ---
Test Date: 2025-07-01 17:51:31 Measurements Intervals [place] Rate: 113 P: 98 GA: 298 QRS: -72 QRSD: 162 T: 107 QT: 411 QTc: 565 Interpretive Statements ELECTRONIC ATRIAL PACEMAKER ELECTRONIC VENTRICULAR PACEMAKER Electronically Signed On 07-02-2025 07:19:47 [employer] ENG[employer]ERING TECHNICIAN by Uli Dacosta D.O
--- NOTE | 2025-07-01 18:36 | ED_ITS ---
HPI - Recheck/Abnormal Lab/Rx General Chief Complaint: Recheck/Abnormal Lab/Rx Stated Complaint: pacemaker issues Time Seen by Provider: 07/01/25 17:27 History of Present Illness HPI narrative: Patient is an 89-year-old male who presents to the ER with concerns an elevated heart rate. His reports she took his pulse yesterday and it was above 100. He reports the doctor told them if it ever got higher than 100, then they need to seek emergency evaluation. Patient's reports just 3 weeks ago he was having episodes of low blood pressure (50s/?) so his doctor added two medications. Since then patient's reports his heart rate has been higher in she has wondered if this is related to the new medications. Patient denies any shortness a breath, lower extremity edema, recent fevers, chest pain or signs/symptoms of illness. His chart indicates he has a history of coronary artery disease, pacemaker placement, high blood pressure, and hyperlipidemia. Related Data Home Medications ?Medication ?Instructions ?Recorded ?Confirmed ?Last Taken ?Type aspirin 81 mg tablet,delayed 81 mg PO DAILY 11/03/19 0 02/10/25 06/18/24 History release Held on 06/27/24. Instructions: Resume on 07/03/24. niacin 500 mg tablet 500 mg PO DAILY 10/20/2306/18/24 History omega 3-yfd-awi-fish oil 900 1 cap PO DAILY 10/20/23 0 02/10/25 06/18/24 History mg-1,400 mg capsule,delayed release Held on 06/27/24. Instructions: Resume on 07/03/24. paroxetine HCl 10 mg tablet (Paxil) 10 mg PO DAILY 02/10/25 Unknown History Allergies Allergy/AdvReac Type Severity Reaction Status Date / Time No Known Allergies Allergy Verified 07/01/25 17:21 Review of Systems 2 Review of Systems: All systems reviewed & are unremarkable except as noted in HPI and below PMFSH Past Medical History Medical History Non-ST elevation [place] (NSTEMI) Hx of lower gastrointestinal bleeding Pacemaker UTI (urinary tract infection) Incomplete RBBB Bradycardia Urinary retention Vitamin D deficiency Law[place] catheter in place Hyperlipidemia Shingles Arthritis Hemorrhoids Peptic ulcer Benign prostatic hyperplasia Coronary artery disease Hypertension Hearing loss Acute UTI Bradycardia BPH (benign prostatic hyperplasia) CAD (coronary artery disease) of artery bypass graft HTN (hypertension) Surgical History Surgical History History of arthroscopy of both knees History of vasectomy History of colonoscopy with polypectomy 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 Family History Family History Mother Family history of pancreatic cancer Patient's mother is Family history of malignant neoplasm of ovary Father Acute myocardial infarction Sibling Family history of primary malignant neoplasm of liver Family history of malignant neoplasm of kidney Other Family history of malignant neoplasm Social History Social History Social History: Surrogate medical decision maker: Elly Rose, spouse. Code status: DNR/DNR per discussion 03/21/24 (intubation ok for anesthesia during pacemaker placement) Smoking packs per day: 1 Smoking cigarettes per day: 20.0 Years smoked: 20 Smoking pack-years: 20.00 Tobacco type: cigarettes Second hand tobacco smoke exposure: No Smoking end date: 08/27/85 Alcohol intake: current Drinks per week: 3 Substance use: never Substance use type: does not use Do You Feel Safe in your Home?: Yes Lack of Transportation: No Lack of Food: Never True Current Housing: I Have Housing Concerned About Future Housing: No Difficulty Paying Gas/Electric Bills: No Difficulty Paying for Meds: No Currently Unemployed: No Education: High School Diploma/GED Difficulty w/ Childcare or Family Care: Decline to Answer Living arrangements: with family Occupation/Education: retired Spiritual care concerns: No Exam 2 Narrative: GENERAL: Well appearing, well-nourished, non-toxic, in no acute distress. HEAD: Normocephalic, atraumatic. NECK: Supple. No adenopathy, no masses. RESPIRATORY: Airway patent, respirations nonlabored. Clear to auscultation bilaterally, no rales, rhonchi, wheezing. CARDIOVASCULAR: Tachycardia with murmur. Peripheral pulses 2+ and equal bilaterally. ABDOMINAL: Soft, nontender, nondistended, no hepatosplenomegaly. Normoactive BS. MUSCULOSKELETAL: Moves all extremities. Strength/ROM intact without gross deformities. SKIN: Warm, dry, normal color. No rashes. NEURO: A&O X3. Speech clear. Cranial nerves II-XII intact. No ataxic movements. PSYCHIATRIC: Appropriate mood and affect. Normal interaction. Course Vital Signs Vital signs: Vital Signs Temperature 36.4 C 07/01/25 17:22 Pulse Rate 113 H 07/01/25 17:22 Respiratory Rate 14 07/01/25 17:22 Blood Pressure 83/63 L 07/01/25 17:22 Pulse Oximetry 95 07/01/25 17:22 Temperature 36.6 C 07/01/25 17:30 Pulse Rate 62 07/01/25 20:06 Respiratory Rate 20 07/01/25 20:06 Blood Pressure 94/57 L 07/01/25 20:06 Pulse Oximetry 100 07/01/25 20:06 Oxygen Delivery Room Air 07/01/25 17:30 MDM - Recheck/Abnormal Lab/Rx MDM Narrative Medical decision making narrative: Patient is an 89-year-old male who presents to the ER with concerns an elevated heart rate. His reports she took his pulse yesterday and it was above 100. He reports the doctor told them if it ever got higher than 100, then they need to seek emergency evaluation. Patient's reports just 3 weeks ago he was having episodes of low blood pressure (50s/?) so his doctor added two medications. Since then patient's reports his heart rate has been higher in she has wondered if this is related to the new medications. Patient denies any shortness a breath, lower extremity edema, recent fevers, chest pain or signs/symptoms of illness. His chart indicates he has a history of coronary artery disease, pacemaker placement, high blood pressure, and hyperlipidemia. Labs Ordered: CBC, CMP, coags, troponin, proBNP, UA Imaging Ordered: Chest x-ray Medications Ordered: Keflex 500 mg p.o., 1 L normal saline IV Results: Patient's CBC indicates a red blood cell count of 4.52. His coags were negative for acute abnormalities. Patient's chemistry indicates a sodium of 136, chloride of 96, carbon dioxide 33, BUN of 24, GFR 55, bilirubin 1.4. His troponin was 0.880. Patient's proBNP was 3190. His urinalysis indicates patient has a urinary tract infection. Diagnosis: Arrhythmia, pacemaker adjustment, urinary tract infection Consults: 2015-spoke with director of sales support, Dr. Kvng Nesbitt, who reviewed patient's case and reports he agrees patient can be discharged home with close follow-up with Dr. Moreira as an outpatient. MDM: Pt's troponin level was 0.880, but this was significantly lower than it has been in the past (Troponin February 2024, 1.240> 1.060> 1.010). He also continues to deny chest pain. His pro BNP was also elevated, but patient reports his director of sales support recently put him on a water pill. Results of lab work and imaging shared with patient. He continues to deny any chest pain or shortness of breath . Patient was given 1 L normal saline IV bolus (slowly) which helped improve his blood pressure readings. Patient strongly advised to maintain hydration status (his reports he doesn't drink any water because he doesn't like urinating all night) upon discharge and follow-up with his director of sales support as soon as possible. He will be discharged home with a prescription for Keflex. Strict return precautions provided. Patient verbalized understanding and is in agreement with plan. Vital signs stable at time of discharge. All questions answered. Differential Diagnosis Differential diagnosis: Likely other (STEMI, malfunctioning pacemaker, congestive heart failure exacerbation, urinary tract infection) Lab Data Attestation: I reviewed the patient's lab results. 07/01/25 17:37 07/01/25 17:37 Labs: Lab Results 07/01/25 07/01/25 Range/Units 17:37 19:38 WBC 6.2 (4.5-10.0) K/mm3 RBC 4.52 L (4.6-6.20) M/mm3 Hgb 14.8 D (14.0-18.0) g/dL Hct 44.8 (42.0-52.0) % MCV 99.1 (80-100) fl MCH 32.7 (26-34) pg MCHC 33.0 (32-36) g/dl RDW 14.6 H (11.5-14.5) % Plt Count 158 (150-375) k/mm3 MPV 10.0 (7.4-10.4) fl Immature Gran % (Auto) 0.2 (0-0.5) % Neut % (Auto) 41.6 L (45.5-73.1) % Lymph % (Auto) 43.2 (18.3-44.2) % Walker % (Auto) 9.0 H (2.6-8.5) % Eos % (Auto) 5.2 H (0-4.4) % Baso % (Auto) 0.8 (0.2-1.2) % Lymph # (Auto) 2.68 (0.9-3.2) K/mm3 Walker # (Auto) 0.6 (0.1-0.6) K/mm3 Eos # (Auto) 0.3 (0-0.3) K/mm3 Baso # (Auto) 0.1 (0.0-0.1) K/mm3 Abs Immat Gran (auto) 0.01 (0.00-0.031) K/mm3 Absolute Neuts (auto) 2.6 (1.3-6.7) K/mm3 Absolute Nucleated RBC 0.000 (0.0-0.012) K/mm3 Nucleated RBC % 0.0 (0.0-0.2) % PT 12.3 (11.1-14.7) Seconds INR 0.9 APTT 25.4 (22.3-36.8) Seconds Sodium 136 L (137-145) mmol/L Potassium 4.0 (3.4-5.0) mmol/L Chloride 96 L (98-107) mmol/L Carbon Dioxide 33 H (22-30) mmol/L Anion Gap 7 (4-12) mmol/L BUN 24 H (9-20) mg/dL Creatinine 1.24 (0.7-1.3) mg/dL Estim Creat Clear Calc 36 ml/min Estimated GFR 55 L (59 - ) Glucose 97 (65-110) mg/dL Calcium 8.9 (8.4-10.2) mg/dL Total Bilirubin 1.4 H (0.2-1.3) mg/dL AST 58 (17-59) U/L ALT 34 (6-50) U/L Alkaline Phosphatase 91 (38-126) U/L Troponin I 0.880 H* (0.000-0.034) ng/mL NT-Pro-B Natriuret Pep 3190 H (19.9-100) pg/mL Total Protein 8.0 (6.3-8.2) g/dL Albumin 4.5 (3.5-5.1) g/dL Urine Color Yellow (Yellow) Urine Appearance Clear (Clear) Urine pH 5.5 (5.0-9.0) Ur Specific [place] 1.018 (1.001-1.035) Urine Protein Negative (Negative) mg/dL Urine Glucose (UA) Negative (Negative) mg/dL Urine Ketones Trace H (Negative) mg/dL Ur Blood (Man) Negative (Negative) Urine Nitrate Negative (Negative) Urine Bilirubin Negative (Negative) Urine Urobilinogen 1.0 (<2.0) mg/dL Leukocyte Esterase Rfl 2+ H (Negative) [place]/UL Urine RBC 0-2 (0-2) /hpf Urine WBC 21-50 H (0-3) /hpf Ur Squamous Epith Cells None seen (Few) /hpf Urine Bacteria None seen /hpf Urine Casts 0-2 Imaging Data Attestation: I personally reviewed and interpreted this imaging study as follows: Radiologist's impression: Impressions Chest X-Ray 07/01/25 18:39 IMPRESSION: No acute findings. Discharge Plan Discharge Clinical Impression: Adjustment and management of cardiac pacemaker, Urinary tract infection, Hypotension Patient Disposition: Home Condition: Guarded Prognosis Instructions: Antibiotic Form, Urinary Tract Infection in Older Adults (ED) Additional Instructions: Please return to the ER with any worsening symptoms. Follow-up with your director of sales support as soon as possible for further evaluation and treatment. If you experience any increased shortness of breath, dizziness, falls, chest pain, or lower extremity swelling please return to the ER immediately. Take all medications as prescribed, including regularly scheduled medications. Patient Language: Samoan Prescriptions: No Action aspirin 81 mg tablet,delayed release (DR/EC) 81 mg PO DAILY paroxetine HCl [Paxil] 10 mg tablet 10 mg PO DAILY donepezil [Aricept] 10 mg tablet 10 mg PO DAILY Qty: 90 2RF docusate sodium [Colace] 100 mg capsule 100 mg PO DAILY Qty: 30 0RF niacin 500 mg Tablet 500 mg PO DAILY omega 2-rdi-stx-fish oil 900-1,400 mg Capsule,Delayed Release(Dr/Ec) 1 cap PO DAILY atorvastatin 80 mg tablet See Rx Instructions .ROUTE .COMPLEX Qty: 180 2RF Dose Instruction: Take 1 tablet by mouth once daily Rx Instructions: Take 1 tablet by mouth once daily Follow-up/Referrals: Polo Moreira MD [Physician, Cardiology] Polo Vasquez MD [Primary Care Provider, Internal Medicine] Time of Disposition: 20:49
--- NOTE | 2025-07-01 18:36 | PC.NURSE ---
Pt. to x-ray.
[2025-07-01] MEDS: SODIUM CHLORIDE 0.9% IV 1,000 ML 500 ML IV CONT (19:05)
--- NOTE | 2025-07-01 19:12 | PC.NURSE ---
[employer] contacted by this RN for pacemaker interrogation. Per [employer] staff, area representative will call back to walk this RN through the interrogation.
--- NOTE | 2025-07-01 19:18 | PC.NURSE ---
Received call back from [employer] pharmacy services representative. In room interrogating pacemaker with pharmacy services representative on the phone providing guidance. After placing the interrogator over the pt. pacemaker, HR dropped from 113 to 60. No change in pt. presentation.
[2025-07-01 19:36] LABS: Hematocrit 44.8 % (42.0-52.0); Hemoglobin 14.8 g/dL (14.0-18.0); Immature Granulocyte Percent A 0.2 % (0-0.5); Lymphocytes Absolute Auto 2.68 K/mm3 (0.9-3.2); Mean Corpuscular HGB Conc 33.0 g/dl (32-36); Mean Corpuscular Hemoglobin 32.7 pg (26-34); Mean Corpuscular Volume 99.1 fl (80-100); Nucleated Red Blood Cells Absolute Auto 0.000 K/mm3 (0.0-0.012); Nucleated Red Blood Cells Perc 0.0 % (0.0-0.2); Platelet Count Result 158 k/mm3 (150-375); Red Blood Count 4.52 M/mm3 (4.6-6.20); White Blood Count 6.2 K/mm3 (4.5-10.0)
[2025-07-01 19:40] LABS: Alanine Aminotransferase 34 U/L (6-50); Albumin Level 4.5 g/dL (3.5-5.1); Alkaline Phosphatase 91 U/L (38-126); Anion Gap 7 mmol/L (4-12); Aspartate Amino Transferase 58 U/L (17-59); Bilirubin,Total 1.4 mg/dL (0.2-1.3); Blood Urea Nitrogen 24 mg/dL (9-20); Calcium 8.9 mg/dL (8.4-10.2); Carbon Dioxide 33 mmol/L (22-30); Chloride 96 mmol/L (98-107); Estimated CRCL calculation 36 ml/min; Estimated Glomerular Filt Rate 55; Glucose 97 mg/dL (65-110); Potassium 4.0 mmol/L (3.4-5.0); Sodium 136 mmol/L (137-145); Total Protein 8.0 g/dL (6.3-8.2)
[2025-07-01 19:48] LABS: Add Urine Microscopic? YES; Appearance Urine Clear (Clear); Glucose Urine UA Negative (Negative); Leukocyte Esterase Ur 2+ LEU/UL (Negative); Nitrate Urine Negative (Negative); Non Pathogenic Casts 0-2; Specific Grav Ur 1.018 (1.001-1.035)
[2025-07-01 19:49] LABS: INR 0.9; Partial Thromboplastin Time 25.4 Seconds (22.3-36.8); Prothrombin Time 12.3 Seconds (11.1-14.7)
[2025-07-01 19:54] LABS: NT Pro B Type Natriuretic Pept 3190 pg/mL (19.9-100); Troponin I 0.880 ng/mL (0.000-0.034)
--- NOTE | 2025-07-01 20:15 | PC.NURSE ---
PHYSICIST ACOUSTICS Emmy at bedside updating pt. and pt. family.
[2025-07-01] MEDS: CEPHALEXIN 250 MG CAPSULE 500 MG PO (21:07)
--- OUTSIDE RECORDS SUMMARY | 2025-07-02 09:45 | XMS_ITS | Encounter Summary ---
Author Organization [facility] Healthcare Address [address] [place] [address] Care Team Providers Care Building Specialist Name Role Phone Polo Vasquez MD Primary Care Provide r Peter Martin MD Unavailable Bacilio Sigala DO Unavailable [phone] Reason for Referral * MRI/CAT/PET Scan (Routine) - Closed Specialty Diagnoses / Procedures Referred By Alejandra deshpande Referred To Contact Radiology Diagnoses Malignant neoplasm of urinary bladder, unspecified site (HCC) Procedures CT Chest Abdomen Pelvis W Contrast Bacilio Sigala DO [facility] [address] Phone: tel: fax: [address] [phone] Referral ID Status Reason Start Date Expiration Date Visits Re quested Visits Authorized [id number] Closed 05/28/2025 06/27/2026 1 1 UATOR Reason for Visit * MRI/CAT/PET Scan (Routine) - Closed Specialty Diagnoses / Procedures Referred By Alejandra deshpande Referred To Contact Radiology Diagnoses Malignant neoplasm of urinary bladder, unspecified site (HCC) Procedures CT Chest Abdomen Pelvis W Contrast Bacilio Sigala DO [address] [address] Phone: tel: fax: [address] [phone] Referral ID Status Reason Start Date Expiration Date Visits Re quested Visits Authorized [id number] Closed 05/28/2025 06/27/2026 1 1 Encounter Details Date Type Department Care Team (Latest Contact Info) Description 07/02/2025 9:45 AM EVALUATOR Hospital Encounter [facility] [address] [place] [address] Malignant neoplasm of urinary bladder, unspecified site (HCC) Social History Tobacco Use Types Packs/Day Years Used Date Smoking Tobacco: Former Smokeless Tobacco: Never Alcohol Use Standard Drinks/Week Comments Yes 14 (1 standard drink = 0.6 oz pu re alcohol) [facility] Utilities Answer Date Recorded In the past 12 months has th e electric, gas, oil, or water company threatened to shut off services in your home? Patient unable to answer 10/28/2024 Social Connection and Isolation Panel Answer Date Recorded In a typical week, how many times do you talk on the phone with family, friends, or neighbors? Patient unable to answer 10/28/2024 How often do you get togethe r with friends or relatives? Patient unable to answer 10/28/2024 How often do you attend chur ch or oriental orthodox services? Patient unable to answer 10/28/2024 Do you belong to any clubs o r organizations such as hoahaoism groups, unions, fraternal or athletic groups, or school groups? Patient unable to answer 10/28/2024 How often do you attend meet ings of the clubs or organizations you belong to? Patient unable to answer 10/28/2024 Are you , , di vorced, , never , or living with a partner? Patient unable to answer 10/28/2024 Overall Financial Resource Strain (CARDIA) Answe r Date Recorded How hard is it for you to pa y for the very basics like food, housing, medical care, and heating? Patient unable to answer 10/28/2024 Hunger Vital Sign Answer Date Recorded Within the past 12 months, y ou worried that your food would run out before you got the money to buy more. Patient unable to answer 10/28/2024 Within the past 12 months, t he food you bought just didn't last and you didn't have money to get more. Patient unable to answer 10/28/2024 PRAPARE - Transportation Answer Date Re corded In the past 12 months, has l ack of transportation kept you from medical appointments or from getting medications? Patient unable to answer 10/28/2024 In the past 12 months, has l ack of transportation kept you from meetings, work, or from getting things needed for daily living? Patient unable to answer 10/28/2024 Housing Stability Vital Sign Answer Osbaldo e Recorded In the last 12 months, was t here a time when you were not able to pay the mortgage or rent on time? Patient unable to answer 10/28/2024 In the past 12 months, how m any times have you moved where you were living? 0 10/28/2024 [facility] you [facility] or living in a skilled nursing (including now)? Patient unable to answer 10/28/2024 AUDIT-C Answer Date Recorded Frequency of Alcohol Consumption Not on file 05/28/2025 Q2: How many drinks containi ng alcohol do you have on a typical day when you are drinking? Patient does not drink Frequency of Binge Drinking Not on file 09/2024 Personal Safety Answer Date Recorded Have you ever been in or are you currently in a harmful physical or emotional relationship or is someone making you feel afraid or unsafe? 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 Not on file Not on file Not on file documented as of this encounter Plan of Treatment Not on file documented as of this encounter Procedures Procedure Name Priority Date/Time Associated Diagnosis Comments CT CHEST ABDOMEN PELVIS W CONTRAST Schedule Routine, Read Routine (OP Routine) 07/02/2025 10:13 AM EVALUATOR Malignant neoplasm of urinary bladder, unspecified site (HCC) documented in this encounter Results * CT Chest Abdomen Pelvis W Contrast (07/02/2025 10:13 AM EVALUATOR) Anatomical Region Laterality Modality Body N/A Computed Tomogra phy 07/02/2025 12:4 2 PM EVALUATOR Impressions 07/02/2025 12:42 PM EVALUATOR 1. No evidence of metastatic disease in the chest, abdomen, or pelvis. Electronically signed by: Suly Perez MD Narrative 07/02/2025 12:42 PM EVALUATOR EXAMINATION: CT chest, abdomen, and pelvis with contrast TECHNIQUE: Computed tomography of the chest, abdomen, and pelvis was performed following the administration of nonionic intravenous contrast. HISTORY: Bladder cancer COMPARISON:April 02, 2025. FINDINGS: Chest: Pleura and lungs: There are scattered areas of mild atelectasis/scar. Central airways: Widely patent. Lymph nodes: There is no appreciable adenopathy. Heart and Great vessels: The heart is moderately enlarged. There is a pacemaker device in place. The patient has undergone prior coronary artery bypass graft procedure. There is dense atherosclerotic disease of all [address] [place] coronary arteries. There is no pericardial fluid collection. Abdomen: Liver, Gallbladder & bile ducts: The liver is normal in appearance. There are no focal lesions, nor is there biliary dilation. The gallbladder is normal in appearance. Pancreas: Normal in appearance. Spleen: There are calcified granulomas in the spleen. Adrenals: Normal in appearance. Kidneys, collecting system and ureters: There is no hydronephrosis. Retroperitoneum, lymph nodes, and vessels: The abdominal aorta and its major branches are severely atherosclerotic. There is no discrete retroperitoneal lymphadenopathy. Bowel & Mesentery: The bowel is normal in caliber. There is no obstruction. There is no appreciable mesenteric free fluid or lymphadenopathy. Pelvis: Bladder: There is a diverticulum arising from the right lateral bladder wall. Reproductive organs: The prostate gland is enlarged. Extraperitoneal, lymph nodes, vessels: No discrete pelvic lymphadenopathy. Osseous and body wall: There is multilevel disc degeneration of the thoracic and the lumbar spine. There are no concerning osteolytic or osteoblastic lesions. Procedure Note Suly Perez MD - 07/02/2025 EXAMINATION: CT chest, abdomen, and pelvis with contrast TECHNIQUE: Computed tomography of the chest, abdomen, and pelvis was performed following the administration of nonionic intravenous contrast. HISTORY: Bladder cancer COMPARISON:April 02, 2025. FINDINGS: Chest: Pleura and lungs: There are scattered areas of mild atelectasis/scar. Central airways: Widely patent. Lymph nodes: There is no appreciable adenopathy. Heart and Great vessels: The heart is moderately enlarged. There is a pacemaker device in place. The patient has undergone prior coronary artery bypass graft procedure. There is dense atherosclerotic disease of all 3 [place] coronary arteries. There is no pericardial fluid collection. Abdomen: Liver, Gallbladder & bile ducts: The liver is normal in appearance. There are no focal lesions, nor is there biliary dilation. The gallbladder is normal in appearance. Pancreas: Normal in appearance. Spleen: There are calcified granulomas in the spleen. Adrenals: Normal in appearance. Kidneys, collecting system and ureters: There is no hydronephrosis. Retroperitoneum, lymph nodes, and vessels: The abdominal aorta and its major branches are severely atherosclerotic. There is no discrete retroperitoneal lymphadenopathy. Bowel & Mesentery: The bowel is normal in caliber. There is no obstruction. There is no appreciable mesenteric free fluid or lymphadenopathy. Pelvis: Bladder: There is a diverticulum arising from the right lateral bladder wall. Reproductive organs: The prostate gland is enlarged. Extraperitoneal, lymph nodes, vessels: No discrete pelvic lymphadenopathy. Osseous and body wall: There is multilevel disc degeneration of the thoracic and the lumbar spine. There are no concerning osteolytic or osteoblastic lesions. IMPRESSION: 1. No evidence of metastatic disease in the chest, abdomen, or pelvis. Electronically signed by: Suly Perez MD Bacilio Sigala DO IMG CT PROCEDURES Final Resu lt documented in this encounter Visit Diagnoses Diagnosis Malignant neoplasm of urinary bladder, unspecified site (HCC) documented in this encounter Administered Medications Inactive Administered Medications - up to 3 most recent administrations Medication Order MAR Action Action Date Dose Rate Site ioversoL (OPTIRAY 350) syringe 100 mL 100 mL, intravenous, Once in imaging, contrast, Starting on Fern 07/02/25 at 0952, For 1 dose Contrast Given 07/02/2025 10:13 AM EVALUATOR 100 mL documented in this encounter Orders Medications Ordered That Alexi ht Not Have Been Administered Count Last Ordered Date First Ordered Date ioversoL (OPTIRAY 350) syringe 100 mL 1 01/2025 documented in this encounter Care Teams Building Specialist Relationship Specialty Start Date End Date Polo Vasquez MD [address] [place] [address] PCP - General Emergency Medicine 08/14/24 [place] [address] [place] [id number] Consulting Physician Urology 08/14/24 Bacilio Sigala DO [address] [place] [address] MEDICAL ONCOLOGY, [address] [address] Medical Oncologist/Pollution Control Chemist Hematology and Oncology 08/14/24 documented as of this encounter
--- OUTSIDE RECORDS SUMMARY | 2025-07-02 15:20 | XMS_ITS ---
Author Name Maribell GHOTRA, MRS. Faye npal Address [address] [facility] [place] [address] Phone [phone] Organization [facility]) Care Team Providers Care Order Runner Name Role Phone Mir Reyna Unavailable [phone] Polo Moreira Unavailable [phone] NICHOLE GRIFFIN Unavailable [phone] POLO TOMLINSON Unavailable [phone] Reason for Referral Not Available Allergies, adverse reactions, alerts No known allergies History of medication use Medication Class Instructions Start Date End Date Atorvastatin Calcium 80 mg Tab TAKE 1 TABLET BY MOUTH ONCE DAILY 2024-03-18 No Data Available FeroSul 325 (65 Fe) MG Tab TAKE 1 TABLET BY MOUTH ONCE DAILY WITH BREAKFAST 2025-01-07 No Data Available Ondansetron 8 mg Tab TAKE 1 TABLET BY [facility] EVERY 8 HOURS NEEDED FOR NAUSEA 2024-09-04 No Data Available Clopidogrel Bisulfate 75 mg Tab TAKE 1 TABLET BY MOUTH ONCE DAILY 2024-10-30 No Data Available pyRIDostigmine Mcdowell 60 mg Tab TAKE 1 TABLET BY MOUTH THREE TIMES DAILY 2024-11-05 No Data Available [facility] Fish Oil 1200 mg Cap delayed rel 2 capsules orally once daily 2025-01-27 No Data Available Niacin 500 mg Tab 1 tablet orally kumar y with food 2025-01-27 No Data Available Aspirin EC 81 mg Tab delayed rel 1 tablet orally daily 2025-01-27 No Data Available Benadryl Allergy 25 mg Tab 1 tablet oral ly daily at bedtime as needed 2025-01-27 No Data Available Problem List Problem Status Onset Date Resolved Date Synopsis CAD (coronary artery disease) Active 2025-01-27 N/A N/A HLD (hyperlipidemia) Active 2025-01-27 N/A N/A Unsteady gait Active 2025-01-27 N/A N/A Urothelial carcinoma of bladder Active 2025-01-27 N/A N/A Pacemaker Active 2025-01-27 N/A N/A Encounters Encounters Type Facility Date of Service Diagnosis/Co mplaint Home visit for evaluation and management of new patient requiring medically appropriate examination and low level of medical decision making. If using time, at least 30 minutes total time on encounter [facility] [place] 01/27/2025 Malignant neoplasm o f bladder, unspecifiedAthscl heart disease of [place] coronary artery w/o ang pctrsHyperlipidemia, unspecifiedUnsteadiness on feetPresence of cardiac pacemakerBody mass index (bmi) 27.0-27.9, adult Home visit for evaluation and management of new patient requiring medically appropriate examination and low level of medical decision making. If using time, at least 30 minutes total time on encounter [facility] 01/27/2025 Malignant neoplasm o f bladder, unspecified Home visit for evaluation and management of new patient requiring medically appropriate examination and low level of medical decision making. If using time, at least 30 minutes total time on encounter [facility] 01/27/2025 Malignant neoplasm o f bladder, unspecified Vital Signs Date of Collection Vitals 2025-01-27 08:30:00 Height - 175.26 cmWe ight - 83.46 kgBody Mass Index (BMI) - 27.17 kg/m2BP Diastolic - 71.0 mm[Hg]BP Systolic - 119.0 mm[Hg]Heart Rate - 65.0 /minRespiratory Rate - 16.0 /minO2 % BldC Oximetry - 95.0 % Social History Sex Male History of Procedures Procedures Service Procedure code Service date Servicing provider Phone# Home visit for evaluation and management of new patient requiring medically appropriate examination and low level of medical decision making. If using time, at least 30 minutes total time on encounter [id number] 2025-01-27 No Data Available No Data Availa ble Patient screened for fall risk; no falls in the last year or 1 fall with no injury in the last year 1100F 2025-01-27 No Data Available No Data Avail able Advance care planning discussion documented in medical record [id number] 2025-01-27 No Data Available No Data Avai lable Functional Status Functional Category Effective Dates does not drive 2025-01-27 lives with spouse; independent of ADL's 2025-01-27 walk in shower has grab bars and a showe r bench 2025-01-27 Mental Status No Information Assessments Date of Service Assessments 2025-01-27 08:30:00 CAD (coronary artery disease)HLD (hyperlipidemia)Unsteady gaitUrothelial carcinoma of bladderPacemaker Plan of Care Date of Service Plans 2025-01-27 08:30:00 Cardiology follow up - 02/02/2025 Dr Tomlinson f/u - 02/06/2025Dr Griffin f/u - 6 weeks from 01/22/2025hronic; stablecontinue atorvastatin 80 mg once daily, aspirin 81 mg once daily and Plavix 75 me once dailycardiology f/u 02/02/2025urrently in cardiac rehab twice a weekheart healthy dietchronic, stablecontinue atorvastatin 80 mg once dailyheart healthy dietdenies any recent falls since pacemaker placementwould benefit from physical therapyencouraged to ask PCP regarding home health PT for his gaiimproving - almost in remissionrecently had appt with oncology 12/2024to continue immunotherapy Q3 weeks with next f/u in 6 weeksplaced in 07/2024was having syncopal episodes due to bradycardiano syncope since pacemaker placementDevice check annually Health Concerns Date Concern 2025-01-27 Healthy House Calls is a service that involves a physician or advanced practice provider conducting comprehensive assessments in your patient s home or virtually to address crucial areas such as chronic conditions, quality gaps, social concerns, fall risk prevention, and various screenings. Please note that your patient will remain attributed to you even though they are participating in this service. If you have any questions, please reach out directly to our team at the phone number above.Your patient, Gómez Rose, 1935, was seen today for a Healthy House Call visit. Patient read rights and responsibilities and consented to treatment. The purpose of this summary is to update you on the patient's current health status and share any relevant findings from the examination. 2025-01-27 bladder cancer - belinda ost in remission with next immunotherapy treatment is 02/06/2025
--- OUTSIDE RECORDS SUMMARY | 2025-07-02 15:20 | XMS_ITS | Encounter Summary ---
Author Organization [facility] Address [address] [place] [address] Phone Care Team Providers Care School Bus Mechanic Name Role Phone Polo Vasquez MD Primary Care Provide r Peter Martin MD Unavailable [phone] Bacilio Sigala DO Unavailable [phone] Encounter Details Date Type Department Care Team (Late st Contact Info) Description 06/18/2025 Results Follow-Up [facility] Phys[facility] Oncology [address] [place] [address] [address] [place] [address] Darlene Rodriguez RN Comprehensive metabolic panel, CBC with auto differential, Differential, auto, eGFR Social History Tobacco Use Types Packs/Day Years Used Date Smoking Tobacco: Former Smokeless Tobacco: Never Alcohol Use Standard Drinks/Week Comments Yes 14 (1 standard drink = 0.6 oz pu re alcohol) [facility] Utilities Answer Date Recorded In the past 12 months has [employer], gas, oil, or water [employer] threatened to shut off services in your [...] answer 10/28/2024 How often do you attend [facility] or yarsanism services? Patient unable to answer 10/28/2024 Do you belong to any clubs o r organizations such as mandaeism groups, unions, fraternal or athletic groups, or [...] any time in the past 12 m [facility], were you homeless or living in a prison (including now)? 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 Not on file Not on file Not on file documented as of this encounter Functional Status documented as of this encounter Plan of Treatment Not on file documented as of this encounter Visit Diagnoses Not on filedocumented in this encounter Care Teams School Bus Mechanic Relationship Specialty Start Date End Date Polo Vasquez MD [address] [address] PCP - General Emergency Medicine 08/14/24 [place] [id number] [address] Consulting Physician Urology 08/14/24 Bacilio Sigala DO [address] [place] [address] MEDICAL ONCOLOGY, [address] [address] Medical Oncologist/Cutter Grinder Operator Hematology and Oncology 08/14/24 documented as of this encounter
--- OUTSIDE RECORDS SUMMARY | 2025-07-02 15:21 | XMS_ITS | Clinical Summary ---
Author Organization [facility] [place] [address] [place] [address] Care Team Providers Care Curriculum Advisory Teacher Name Role Phone Polo Vasquez MD Primary Care Provide r Peter Martin MD Unavailable [phone] Bacilio Sigala DO Unavailable [phone] Allergies No known active allergies Medications atorvastatin (LIPITOR) 80 mg tablet Take 1 tablet (80 mg total) by mouth daily 9 Active aspirin 81 mg enteric coated tablet Take 1 tablet (81 mg total) by mouth daily Active niacin 500 mg tablet Take 1 tablet (500 mg total) by mouth daily with breakfast Active omega 9-hig-xss-fish oil 1,200 (144-216) mg capsule Take 1 capsule by mouth daily Active ondansetron (ZOFRAN) 8 mg tabletIndication s:Malignant neoplasm of urinary bladder, unspecified site (HCC) Take 1 tablet (8 mg total) by mouth every 8 (eight) hours as needed for nausea 30 tablet 2 5 Active clopidogreL (PLAVIX) 75 mg tablet Take 1 tablet (75 mg total) by mouth daily 90 tablet 3 5 10/31/19 26 Active pyRIDostigmine (MESTINON) 60 mg tablet Take 1 tablet (60 mg total) by mouth 3 (three) times a day 90 tablet 11 5 11/06/19 26 Active compress.stockin g,knee,reg,med misc 1 Units daily Please apply compression stockings to both feet every day, 20-30 mmHg, knee-high 2 each 5 11/06/19 Active clotrimazole 1 % cream Apply topically 2 (two) times a day 30 g 5 Active donepeziL (ARICEPT) 10 mg tablet 5 Active losartan (COZAAR) 100 mg tablet Take 1 tablet (100 mg total) by mouth daily 30 tablet 11 5 03/09/20 26 Active metoprolol XL (TOPROL-XL) 50 mg extended release tablet Take 1 tablet (50 mg total) by mouth daily 30 tablet 5 03/30/20 26 Active chlorthalidone (HYGROTON) 25 mg tablet Take 1 tablet (25 mg total) by mouth daily 30 tablet 5 09/26/19 26 Active ferrous sulfate (FeroSuL) 325 mg (65 mg of elemental iron) tablet Take 1 tablet by mouth once daily with breakfast 30 tablet 1 5 Active mupirocin (BACTROBAN) 2 % ointment APPLY TO THE RASH NEAR THE ANUS TWICE DAILY 22 g 5 Active Active Problems Problem Noted Date Diagnosed Date S/P angioplasty with stent 10/31/2024 History of bladder cancer 10/29/2024 Coronary artery disease invo lving coronary bypass graft of [place] heart without angina pectoris 10/29/2024 Syncope and collapse 10/27/2024 Elevated troponin 10/27/2024 Abnormal cardiovascular stress test 10/27/2024 Presence of heart assist device 09/06/2024 Bladder cancer 09/04/2024 Cancer Staging:Clinical stage from 09/04/2024:Stage MANISH(cT2, cN2, cM1a) - Signed by Bacilio Sigala DO on 09/05/2024 Cardiac pacemaker in situ 03/24/2024 Overview (03/25/2024): Biotronik Sonu STEIN dual chamber pacemaker - SSS, symptomatic bradycardia DOI 03/24/24 - Harish. Biotronik remote home monitoring. Sinus bradycardia 02/21/2024 Atherosclerosis of [place] co ronary artery with other form of angina pectoris, unspecified whether 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 Hospital Encounter [facility] [address] [place] [address] Malignant neoplasm of urinary bladder, unspecified site (HCC) 07/02/2025 Telephone [facility] [address] [place] [phone] Polo Moreira MD 06/25/2025 Telephone [facility] Card[facility] [address] [place] [phone] Polo Moreira MD Hypertension; physician call 06/18/2025 1:30 PM CDT Infusion [address] [phone] Malignant neoplasm of urinary bladder, unspecified site (HCC) (Primary Dx) 06/18/2025 1:00 PM CDT Lab [address] [address] Malignant neoplasm of urinary bladder, unspecified site (HCC) 06/18/2025 Results Follow-Up [facility] [address] [place] [phone] Darlene Rodriguez, VON Comprehensive metabolic panel, CBC with auto differential, Differential, auto, eGFR 06/17/2025 Orders Only [facility] [address] [place] [phone] Bacilio Sigala DO 06/03/2025 Telephone [facility] [address] [place] [phone] Darlene Rodriguez, RN 06/02/2025 9:00 AM CDT Ancillary Procedure [facility] [address] [facility] [address] [place] [phone] Cardiac pacemaker in situ; SSS (sick sinus syndrome) (HCC); Bradycardia 05/28/2025 11:45 AM CDT Infusion [facility] at [address] [place] [phone] Malignant neoplasm of urinary bladder, unspecified site (HCC) (Primary Dx) 05/28/2025 11:15 AM CDT [facility] [address] [place] [address] [address] [place] [phone] Bacilio Sigala, Malignant neoplasm of urinary bladder, unspecified site (HCC) (Primary Dx) 05/28/2025 10:45 AM CDT Lab [facility] at [address] [address] Malignant neoplasm of urinary bladder, unspecified site (HCC) 05/07/2025 8:45 AM CDT Infusion [address] [place] [address] Malignant neoplasm of urinary bladder, unspecified site (HCC) (Primary Dx) 05/07/2025 8:15 AM CDT Lab [address] [address] Malignant neoplasm of urinary bladder, unspecified site (HCC) 05/07/2025 Orders Only [facility] [address] [place] [address] [address] [place] [phone] Laruie Parks RN 05/06/2025 Orders Only [facility] [address] [place] [address] [address] [place] [phone] Bacilio Sigala DO 05/01/2025 Telephone [facility] [address] [place] [address] [address] [place] [phone] Kaylee Rudolph CMA 04/16/2025 11:45 AM CDT Infusion [address] [place] [address] Malignant neoplasm of urinary bladder, unspecified site (HCC) (Primary Dx) 04/16/2025 11:15 AM CDT Office Visit [facility] [address] [facility] [address] [place] [phone] Bacilio Sigala DO Malignant neoplasm of urinary bladder, unspecified site (HCC) (Primary Dx) 04/16/2025 10:45 AM CDT Lab [facility] [address] [place] [address] Malignant neoplasm of urinary bladder, unspecified site (HCC) 04/13/2025 Telephone [facility] [address] [facility] [address] [place] [phone] Connie Villanueva RN 04/02/2025 10:39 AM CDT - 04/02/2025 11:59 PM CDT Hospital Encounter [facility] [address] [place] [address] Malignant neoplasm of urinary bladder, unspecified site (HCC) Discharge Disposition: Discharge to home or self care from Last 3 Months Surgical History Surgery Date Site/Laterality Comments HEART SURGERY bypass 35 years ago KNEE SURGERY Bilateral torn ligament over 20 years ago BLADDER SURGERY 05/27/2024 - 06/26/2024 BLADDER SURGERY 11/26/2023 - 12/25/2023 INSERT / REPLACE / REMOVE PACEMAKER 04/27/2024 - 05/26/2024 FINGER SURGERY Left in 1960 left index finger removal CATARACT EXTRACTION Bilateral 6 weeks apart 2022 CARDIAC CATHETERIZATION 10/30/2024 Stent x2 to RCA CARDIAC CATHETERIZATION 10/30/2024 N/A Procedure: LEFT HEART CATHETERIZATION WITH CORONARY ANGIOGRAPHY GRAFT AND WITH OR WITHOUT LEFT VENTRICULOGRAM [id number]; Surgeon: Negrito Ryan MD; Location: [facility] CARDIAC VETERANS SERVICE OFFICER; Service: Cardiovascular; Laterality: N/A; right femoral Medical devices from this surgery are in the Medical Devices section. CARDIAC CATHETERIZATION 10/30/2024 N/A Procedure: Percutaneous Coronary Lithotripsy W/ PCI (+) [id number]; Surgeon: Negrito Ryan MD; Location: [facility] CARDIAC VET[employer] SERVICE OFFICER; Service: Cardiovascular; Laterality: N/A; Medical devices from this surgery are in the Medical Devices section. CARDIAC CATHETERIZATION 10/30/2024 N/A Procedure: IVUS/OCT CORS OR GRAFTS, FIRST VESSEL (+) [id number]; Surgeon: Negrito Ryan MD; Location: [facility] CARDIAC VETERANS SERVICE OFFICER; Service: Cardiovascular; Laterality: N/A; Medical devices from this surgery are in the Medical Devices section. CARDIAC CATHETERIZATION 10/30/2024 N/A Procedure: PCI KATHLEEN MAJOR CORONARY [id number] - [id number]; Surgeon: Negrito Ryan MD; Location: [facility] CARDIAC VETERANS SERVICE OFFICER; Service: Cardiovascular; Laterality: N/A; Medical devices from this surgery are in the Medical Devices section. Medical History Medical History Date Comments Hypertension Hypercholesteremia Coronary artery disease BPH (benign prostatic hyperplasia) Cardiomegaly Osteoarthritis Family History Medical History Relation Name Comments No Known Problems Maternal Grandfather No Known Problems Maternal Grandmother Ovarian cancer Mother ALS Other neice No Known Problems Paternal Grandfather No Known Problems Paternal Grandmother Breast cancer Sister Relation Name Status Comments Brother (Age 84) dementia Maternal Grandfather Maternal Grandmother Mother (Age 84) cancer Other neice Alive Paternal Grandfather Paternal Grandmother Sister (Age 85) Social History Tobacco Use Types Packs/Day Years Used Date Smoking Tobacco: Former Smokeless Tobacco: Never Tobacco Cessation:Counseling Given: Not Answered Alcohol Use Standard Drinks/Week Comments Yes 14 (1 standard drink = 0.6 oz pu re alcohol) [facility] Utilities Answer Date Recorded In the past 12 months has [employer], gas, oil, or water [employer] threatened to shut off services in your [...] often do you attend chur ch or mu-ism services? Patient unable to answer 10/28/2024 Do you belong to any clubs o r organizations such as muslim groups, unions, fraternal or athletic groups, or [...] any time in the past 12 m [facility], were you homeless or living in a chcf (including now)? 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 Not on file Not on file Not on file Last Filed Vital Signs Vital Sign Reading Time Taken Comments Blood Pressure 165/83 06/18/2025 1:45 PM CDT Pulse 82 06/18/2025 1:29 PM CDT Temperature 36.4 C (97.6 F) 06/18/2025 1:29 PM CDT Respiratory Rate 16 06/18/2025 1:29 PM CDT Oxygen Saturation 98% 06/18/2025 1:29 PM CDT Inhaled Oxygen Concentration - - Weight 86.5 kg (190 lb 11.2 oz) 06/18/2025 1:29 PM CDT Height 175.3 cm (5' 9) 02/24/2025 11:3 8 AM CDT Body Mass Index 28.16 02/24/2025 11:38 AM CDT Plan of Treatment Health Maintenance Due Date Last Done Comments Depression Screening 1936 DTaP/Tdap/Td Vaccine (1 - Tdap) 1947 Hepatitis B Screening 1954 Well Visit 65+ 2001 Zoster Vaccine (2 of 2) 04/27/2022 03/02/2022 Fall Risk Assessment 10/31/2025 10/31/2024 Pneumococcal vaccine 65+ Completed 017, 05/29/2016, 05/28/2016 Influenza Vaccine Completed 05/21/2025, , 04/19/2020, Additional history exists Medical Devices Implanted Type Area Drone Operator Device Identifier Shelf Expiration Date Model / Serial / Lot Medtronic Card Vasc Surgery 3.5 X 38mm [place] [employer] Rx Coronary Stent [id number] - [id number] Implanted:Qty: 1 on 10/30/2024 by Negrito Ryan MD at [facility] Medtronic Card Vasc Surgery 06/02/2027 [id number] / / [id number] Medtronic Card Vasc Surgery 4.0 X 22mm [place] Mccook Rx Coronary Stent [id number] - [id number] Implanted:Qty: 1 on 10/30/2024 by Negrito Ryan MD at [facility] Medtronic Card Vasc Surgery 04/19/2027 [id number] / / [id number] [employer] Angio-Seal Vip 6fr Closere Device [id number] - [id number] Implanted:Qty: 1 on 10/30/2024 by Negrito Ryan MD at [facility] [employer] 01/07/2025 [id number] / / [id number] Procedures Procedure Name Priority Date/Time Associated Diagnosis Comments CT CHEST ABDOMEN PELVIS W CONTRAST Schedule Routine, Read Routine (OP Routine) 07/02/2025 10:13 AM DESK CLERKS SUPERVISOR Malignant neoplasm of urinary bladder, unspecified site (HCC) EGFR STAT 06/18/2025 1:17 PM CDT Malignant neoplasm of urinary bladder, unspecified site (HCC) DIFFERENTIAL AUTO STAT 06/18/2025 1:1 7 PM CDT Malignant neoplasm of urinary bladder, unspecified site (HCC) CBC WITH AUTO DIFFERENTIAL STAT 06/18/2025 1:17 PM CDT Malignant neoplasm of urinary bladder, unspecified site (HCC) COMPREHENSIVE METABOLIC PANEL STAT 06/18/2025 1:17 PM CDT Malignant neoplasm of urinary bladder, unspecified site (HCC) DEVICE CHECK - REMOTE Routine 06/03/2025 10:43 AM CDT Cardiac pacemaker in situ SSS (sick sinus syndrome) (HCC) Bradycardia EGFR STAT 05/28/2025 10:30 AM CDT Malignant neoplasm of urinary bladder, unspecified site (HCC) DIFFERENTIAL AUTO STAT 05/28/2025 10: 30 AM CDT Malignant neoplasm of urinary bladder, unspecified site (HCC) CBC WITH AUTO DIFFERENTIAL STAT 05/28/2025 10:30 AM CDT Malignant neoplasm of urinary bladder, unspecified site (HCC) COMPREHENSIVE METABOLIC PANEL STAT 05/28/2025 10:30 AM CDT Malignant neoplasm of urinary bladder, unspecified site (HCC) EGFR STAT 05/07/2025 8:07 AM CDT Malignant neoplasm of urinary bladder, unspecified site (HCC) DIFFERENTIAL AUTO STAT 05/07/2025 8:0 7 AM CDT Malignant neoplasm of urinary bladder, unspecified site (HCC) CBC WITH AUTO DIFFERENTIAL STAT 05/07/2025 8:07 AM CDT Malignant neoplasm of urinary bladder, unspecified site (HCC) COMPREHENSIVE METABOLIC PANEL STAT 05/07/2025 8:07 AM CDT Malignant neoplasm of urinary bladder, unspecified site (HCC) URINALYSIS, MICROSCOPIC ONLY Routine 04/16/2025 12:42 PM CDT Malignant neoplasm of urinary bladder, unspecified site (HCC) URINE CULTURE Routine 04/16/2025 12:42 PM CDT URINALYSIS AND REFLEX TO MICROSCOPIC AND CULTURE Routine 04/16/2025 12:42 PM CDT Malignant neoplasm of urinary bladder, unspecified site (HCC) EGFR STAT 04/16/2025 10:41 AM CDT Malignant neoplasm of urinary bladder, unspecified site (HCC) DIFFERENTIAL AUTO STAT 04/16/2025 10: 41 AM CDT Malignant neoplasm of urinary bladder, unspecified site (HCC) CBC WITH AUTO DIFFERENTIAL STAT 04/16/2025 10:41 AM CDT Malignant neoplasm of urinary bladder, unspecified site (HCC) COMPREHENSIVE METABOLIC PANEL STAT 04/16/2025 10:41 AM CDT Malignant neoplasm of urinary bladder, unspecified site (HCC) CT CHEST ABDOMEN PELVIS W CONTRAST Schedule Routine, Read Routine (OP Routine) 04/02/2025 10:51 AM CDT Malignant neoplasm of urinary bladder, unspecified site (HCC) from Last 3 Months Results * CT Chest Abdomen Pelvis W Contrast (07/02/2025 10:13 AM DESK CLERKS SUPERVISOR) Anatomical Region Laterality Modality Body N/A Computed Tomogra phy 07/02/2025 12:4 2 PM DESK CLERKS SUPERVISOR Impressions 07/02/2025 12:42 PM DESK CLERKS SUPERVISOR 1. No evidence of metastatic disease in the chest, abdomen, or pelvis. Electronically signed by: Suly Perez MD Narrative 07/02/2025 12:42 PM DESK CLERKS SUPERVISOR EXAMINATION: CT chest, abdomen, and pelvis with [...] is dense atherosclerotic disease of all [address] [place] coronary arteries. There is no pericardial fluid [...] is dense atherosclerotic disease of all [address] [place] coronary arteries. There is no pericardial fluid [...] by: Suly Perez MD Bacilio Sigala DO IM CT PROCEDURES Final Resu lt * eGFR (06/18/2025 1:17 PM CDT) eGFR 72 >=60 mL/min/1. 73 m2 Comment: Interpretive Data Reference Interval Normal >/= 90 mL/min/1.73m2 Mildly decreased* 60 - 89 mL/min/1.73m2 Mildly to moderately decreased 45 - 59 mL/min/1.73m2 Moderately to severely decreased 30 - 44 mL/min/1.73m2 Severely decreased 15 - 29 mL/min/1.73m2 Kidney Failure < 15 mL/min/1.73m2 *Relative to young adult level Estimated glomerular filtration rate is determined by the 2020 CKD-EPI equation recommended by the National Kidney Foundation (A Unifying Approach to GFR Estimation: Recommendations of the NKF-ASK Task Force on Reassessing the Inclusion of Race in Diagnosing Kidney Disease, JASN 2020). The CKD-EPI equation should not be used for patients with unstable renal function and has not been validated in children and those over 70. Current interpretive data was last reviewed 2021. Testing performed by: [address] [address] Blood 06/18/2025 1:17 PM CDT 06/18/2025 1:20 PM CDT us Bacilio Sigala DO LAB BLOOD ORDERABLES Final R esult [facility] Department [place] [address] * Differential, auto (06/18/2025 1:17 PM CDT) Neutrophil abs 2.29 1.50 - 6.50 K/cumm Comment:Testing performed by : [address] [address] Imm gran abs 0.02 0.00 - 0.10 K/cumm RAYSA Comment:Testing performed by : [address] [address] Lymphocyte abs 1.51 0.80 - 3.30 K/cumm RAYSA Comment:Testing performed by : [address] [address] Monocyte abs 0.37 0.20 - 0.80 K/cumm RAYSA Comment:Testing performed by : [address] [address] Eosinophil abs 0.27 0.00 - 0.50 K/cumm RAYSA Comment:Testing performed by : [address] [address] Basophil abs 0.03 0.00 - 0.10 K/cumm RAYSA Comment:Testing performed by : [address] [address] Neutrophil pct 51.1 % RAYSA Comment: Interpretive Data Percent cell count reference ranges are not reported, since discordance with absolute values may lead to misinterpretation of CBC data. Current Interpretive Data was last revised on 2017. Testing performed by: [address] [address] Imm gran pct 0.4 % RAYSA Comment: Interpretive Data Percent cell count reference ranges are not reported, since discordance with absolute values may lead to misinterpretation of CBC data. Current Interpretive Data was last revised on 2017. Testing performed by: [address] [address] Lymphocyte pct 33.6 % [facility] Comment: Interpretive Data Percent cell count reference ranges are not reported, since discordance with absolute values may lead to misinterpretation of CBC data. Current Interpretive Data was last revised on 2017. Testing performed by: [address] [address] Monocyte pct 8.2 % [facility] Comment: Interpretive Data Percent cell count reference ranges are not reported, since discordance with absolute values may lead to misinterpretation of CBC data. Current Interpretive Data was last revised on 2017. Testing performed by: [address] [address] Eosinophil pct 6.0 % RAYSA Comment: Interpretive Data Percent cell count reference ranges are not reported, since discordance with absolute values may lead to misinterpretation of CBC data. Current Interpretive Data was last revised on 2017. Testing performed by: [address] [address] Basophil pct 0.7 % [facility] Comment: Interpretive Data Percent cell count reference ranges are not reported, since discordance with absolute values may lead to misinterpretation of CBC data. Current Interpretive Data was last revised on 2017. Testing performed by: [address] [address] Blood 06/18/2025 1:17 PM CDT 06/18/2025 1:20 PM CDT us Bacilio Sigala DO LAB BLOOD ORDERABLES Final R esult RAYSA [address] [facility] Department [place] [address] * (ABNORMAL) CBC with auto differential (06/18/2025 1:17 PM CDT) WBC 4.49 3.80 - 9.90 K/cumm Comment:Testing performed by : [address] [address] Hgb 13.8 13.0 - 17.5 g/dL RAYSA Comment:Testing performed by : [address] [address] Hct 39.7 38.9 - 50.3 % RAYSA Comment:Testing performed by : [address] [address] Plt 116(L) 150 - 400 K/cumm RAYSA Comment:Testing performed by : [address] [address] MPV 9.8 9.1 - 12.3 fL RAYSA Comment:Testing performed by : [address] [address] RBC 4.20(L) 4.30 - 5.80 M/cumm RAYSA Comment:Testing performed by : [address] [address] MCV 94.5 81.3 - 96.4 fL RAYSA Comment:Testing performed by : [address] [address] MCH 32.9 27.1 - 33.3 pg RAYSA JOYCE Comment:Testing performed by : [address] [address] MCHC 34.8 32.3 - 35.7 g/dL RAYSA Comment:Testing performed by : [address], [address] RDW CV 14.4 11.1 - 14.9 % RAYSA JOYCE Comment:Testing performed by : [address] [address] RDW SD 50.1(H) 35.7 - 48.1 fL RAYSA JOYCE Comment:Testing performed by : [address] [address] NRBC abs 0.00 0.00 - 0.01 K/cumm RAYSA JOYCE Comment:Testing performed by : [address] [address] ANC Prelim 2.29 1.50 - 6.50 K/cumm RAYSA JOYCE Comment: Interpretive Data The rapid ANC is a preliminary automated count and may vary from the final ANC (Neut Abs) reported in the WBC differential that follows. Current interpretive data was last revised 2024. Testing performed by: [address] [address] Blood 06/18/2025 1:17 PM CDT 06/18/2025 1:20 PM CDT us Bacilio Sigala DO LAB BLOOD ORDERABLES Final R esult RAYSA [address] [facility] Department [place] [address] * (ABNORMAL) Comprehensive metabolic panel (06/18/2025 1:17 PM CDT) Sodium 143 135 - 145 mmol/L Comment:Testing performed by : [address] [address] Potassium, pl 4.4 3.3 - 4.9 mmol/L RAYSA JOYCE Comment:Testing performed by : [address] [address] Chloride 104 97 - 110 mmol/L RAYSA JOYCE Comment:Testing performed by : [address] [address] CO2 27 22 - 32 mmol/L RAYSA JOYCE Comment:Testing performed by : [address] [address] Anion gap 12 2 - 15 mmol/L RAYSA JOYCE Comment:Testing performed by : [address] [address] BUN 11 6 - 25 mg/dL RAYSA Comment:Testing performed by : [address] [address] Creatinine 1.00 0.80 - 1.30 mg/dL RAYSA Comment:Testing performed by : [address] [address] Glucose 97 70 - 199 mg/dL RAYSA Comment: Interpretive Data Fasting glucose >/= 126 mg/dl is diagnostic for diabetes. Fasting is defined as no caloric intake for at least 8 hours. Fasting glucose between 100 mg/dl to 125 mg/dl is diagnostic of prediabetes. In a patient with classic symptoms of hyperglycemia or hyperglycemic crisis, a random glucose >/= 200 mg/dl is diagnostic for diabetes. In the absence of unequivocal hyperglycemia, results should be confirmed by repeat testing. The classification and Diagnosis of Diabetes Diabetes Care 2021; 46: S19-S40. Current interpretive data was last revised 2022. Testing performed by: [address] [address] Calcium 9.1 8.5 - 10.3 mg/dL RAYSA Comment:Testing performed by : [address] [address] Bilirubin, total 1.7(H) 0.1 - 1.2 mg/dL RAYSA Comment:Testing performed by : [address] [address] Protein, pl 7.1 6.5 - 8.5 g/dL RAYSA Comment:Testing performed by : [address] [address] Albumin 4.2 3.5 - 5.0 g/dL RAYSA Comment:Testing performed by : [address] [address] Alk phos 92 40 - 130 Units/L RAYSA Comment:Testing performed by : [address] [address] ALT 25 7 - 55 Units/L RAYSA Comment:Testing performed by : [address] [address] AST 36 10 - 50 Units/L RAYSA Comment:Testing performed by : [facility], [address] [place] [address]., [address] Blood 06/18/2025 1:17 PM CDT 06/18/2025 1:20 PM CDT Bacilio Sigala DO LAB BLOOD ORDERABLES Final R esult RAYSA [address] [facility] Department [place] [address] * DEVICE CHECK - REMOTE (06/03/2025 10:43 AM CDT) Anatomical Region Laterality Modality Other Narrative 06/19/2025 12:31 PM CDT Biotronik Amvia Wesley DR-T dual chamber pacemaker - SSS, symptomatic bradycardia DOI 03/24/24 - Harish Routine DDD CLS Pacemaker Remote. Transmission attached. Battery status: OK , 90% remaining battery life to MICHAEL. Stable lead impedances, pacing and sensing thresholds. Presenting rhythm: AP/VS AP-99%, BUSINESS ENTERPRISE OFFICER-4 % No AT/AF episodes noted. No Ventricular high rate episodes detected. Medications: ASA 81 mg, clopidogrel 75 mg, losartan 100 mg, Toprol-XL 50 mg See scanned report. Office pacemaker follow up: 08/12/25 Biotronik remote f/u 6 months. Darvin Eli, VON Polo Moreira MD [facility] PROC EDURES Final Result * (ABNORMAL) eGFR (05/28/2025 10:30 AM CDT) eGFR 58(L) >=60 mL/min/1. 73 m2 Comment: Interpretive Data Reference Interval Normal >/= 90 mL/min/1.73m2 Mildly decreased* 60 - 89 mL/min/1.73m2 Mildly to moderately decreased 45 - 59 mL/min/1.73m2 Moderately to severely decreased 30 - 44 mL/min/1.73m2 Severely decreased 15 - 29 mL/min/1.73m2 Kidney Failure < 15 mL/min/1.73m2 *Relative to young adult level Estimated glomerular filtration rate is determined by the 2020 CKD-EPI equation recommended by the National Kidney Foundation (A Unifying Approach to GFR Estimation: Recommendations of the NKF-ASK Task Force on Reassessing the Inclusion of Race in Diagnosing Kidney Disease, JASN 2020). The CKD-EPI equation should not be used for patients with unstable renal function and has not been validated in children and those over 70. Current interpretive data was last reviewed 2021. Testing performed by: [address] [address] Blood 05/28/2025 10:3 0 AM CDT 05/28/2025 10:34 AM CDT us Bacilio Sigala DO LAB BLOOD ORDERABLES Final R esult RAYSA [facility] Department of Laboratories [place], [place] [id number] * Differential, auto (05/28/2025 10:30 AM CDT) Neutrophil abs 1.51 1.50 - 6.50 K/cumm Comment:Testing performed by : [address] [address] Imm gran abs 0.00 0.00 - 0.10 K/cumm ARYSA Comment:Testing performed by : [address] [address] Lymphocyte abs 1.90 0.80 - 3.30 K/cumm RAYSA Comment:Testing performed by : [address] [address] Monocyte abs 0.40 0.20 - 0.80 K/cumm RAYSA Comment:Testing performed by : [address] [address] Eosinophil abs 0.21 0.00 - 0.50 K/cumm RAYSA Comment:Testing performed by : [address] [address] Basophil abs 0.01 0.00 - 0.10 K/cumm RAYAS Comment:Testing performed by : [address] [address] Neutrophil pct 37.6 % RAYSA Comment: Interpretive Data Percent cell count reference ranges are not reported, since discordance with absolute values may lead to misinterpretation of CBC data. Current Interpretive Data was last revised on 2017. Testing performed by: [address] [address] Imm gran pct 0.0 % RAYSA Comment: Interpretive Data Percent cell count reference ranges are not reported, since discordance with absolute values may lead to misinterpretation of CBC data. Current Interpretive Data was last revised on 2017. Testing performed by: [address] [address] Lymphocyte pct 47.1 % [facility] Comment: Interpretive Data Percent cell count reference ranges are not reported, since discordance with absolute values may lead to misinterpretation of CBC data. Current Interpretive Data was last revised on 2017. Testing performed by: [address] [address] Monocyte pct 9.9 % RAYSA Comment: Interpretive Data Percent cell count reference ranges are not reported, since discordance with absolute values may lead to misinterpretation of CBC data. Current Interpretive Data was last revised on 2017. Testing performed by: [address] [address] Eosinophil pct 5.2 % [facility] Comment: Interpretive Data Percent cell count reference ranges are not reported, since discordance with absolute values may lead to misinterpretation of CBC data. Current Interpretive Data was last revised on 2017. Testing performed by: [address] [address] Basophil pct 0.2 % [facility] Comment: Interpretive Data Percent cell count reference ranges are not reported, since discordance with absolute values may lead to misinterpretation of CBC data. Current Interpretive Data was last revised on 2017. Testing performed by: [address] [address] Blood 05/28/2025 10:3 0 AM CDT 05/28/2025 10:34 AM CDT Bacilio Sigala DO LAB BLOOD ORDERABLES Final R esult RAYSA [address] [facility] [place] [address] * (ABNORMAL) CBC with auto differential (05/28/2025 10:30 AM CDT) WBC 4.03 3.80 - 9.90 K/cumm Comment:Testing performed by : [address] [address] Hgb 13.2 13.0 - 17.5 g/dL RAYSA Comment:Testing performed by : [address] [address] Hct 38.6(L) 38.9 - 50.3 % RAYSA Comment:Testing performed by : [address] [address] Plt 110(L) 150 - 400 K/cumm RAYSA Comment:Testing performed by : [address] [address] MPV 9.6 9.1 - 12.3 fL RAYSA Comment:Testing performed by : [address] [address] RBC 4.06(L) 4.30 - 5.80 M/cumm RAYSA Comment:Testing performed by : [address] [address] MCV 95.1 81.3 - 96.4 fL RAYSA Comment:Testing performed by : [address] [address] MCH 32.5 27.1 - 33.3 pg RAYSA JOYCE Comment:Testing performed by : [address] [address] MCHC 34.2 32.3 - 35.7 g/dL RAYSA Comment:Testing performed by : [address] [address] RDW CV 14.5 11.1 - 14.9 % RAYSA JOYCE Comment:Testing performed by : [address] [address] RDW SD 51.2(H) 35.7 - 48.1 fL RAYSA JOYCE Comment:Testing performed by : [address] [address] NRBC abs 0.00 0.00 - 0.01 K/cumm RAYSA JOYCE Comment:Testing performed by : [address] [address] ANC Prelim 1.51 1.50 - 6.50 K/cumm RAYSA Comment: Interpretive Data The rapid ANC is a preliminary automated count and may vary from the final ANC (Neut Abs) reported in the WBC differential that follows. Current interpretive data was last revised 2024. Testing performed by: [address] [address] Blood 05/28/2025 10:3 0 AM CDT 05/28/2025 10:34 AM CDT us Bacilio Sigala DO LAB BLOOD ORDERABLES Final R esult RAYSA [address] [facility] Department of Laboratories [place], [place] [id number] * (ABNORMAL) Comprehensive metabolic panel (05/28/2025 10:30 AM CDT) Sodium 142 135 - 145 mmol/L Comment:Testing performed by : [address] [address] Potassium, pl 4.2 3.3 - 4.9 mmol/L RAYSA JOYCE Comment:Testing performed by : [address] [address] Chloride 105 97 - 110 mmol/L RAYSA JOYCE Comment:Testing performed by : [address] [address] CO2 27 22 - 32 mmol/L RAYSA JOYCE Comment:Testing performed by : [address] [address] Anion gap 10 2 - 15 mmol/L [facility] Comment:Testing performed by : [address] [address] BUN 17 6 - 25 mg/dL [facility] Comment:Testing performed by : [address] [address] Creatinine 1.20 0.80 - 1.30 mg/dL [facility] Comment:Testing performed by : [address] [address] Glucose 96 70 - 199 mg/dL [facility] Comment: Interpretive Data Fasting glucose >/= 126 mg/dl is diagnostic for diabetes. Fasting is defined as no caloric intake for at least 8 hours. Fasting glucose between 100 mg/dl to 125 mg/dl is diagnostic of prediabetes. In a patient with classic symptoms of hyperglycemia or hyperglycemic crisis, a random glucose >/= 200 mg/dl is diagnostic for diabetes. In the absence of unequivocal hyperglycemia, results should be confirmed by repeat testing. The classification and Diagnosis of Diabetes Diabetes Care 2021; 46: S19-S40. Current interpretive data was last revised 2022. Testing performed by: [address] [address] Calcium 8.9 8.5 - 10.3 mg/dL [facility] Comment:Testing performed by : [address] [address] Bilirubin, total 1.5(H) 0.1 - 1.2 mg/dL [facility] Comment:Testing performed by : [address] [address] Protein, pl 6.6 6.5 - 8.5 g/dL [facility] Comment:Testing performed by : [address] [address] Albumin 4.0 3.5 - 5.0 g/dL [facility] Comment:Testing performed by : [address] [address] Alk phos 96 40 - 130 Units/L [facility] Comment:Testing performed by : [address] [address] ALT 23 7 - 55 Units/L [facility] Comment:Testing performed by : [facility], [address] [place] [address]., [address] AST 34 10 - 50 Units/L RAYSA Comment:Testing performed by : [facility], [address] [place] [address]., [address] Blood 05/28/2025 10:3 0 AM CDT 05/28/2025 10:34 AM CDT Bacilio Sigala DO LAB BLOOD ORDERABLES Final R esult Performing Organization Address [facility] Co de Phone Number RAYSA [address] [facility] Department [place] [address] * eGFR (05/07/2025 8:07 AM CDT) eGFR 65 >=60 mL/min/1. 73 m2 Comment: Interpretive Data Reference Interval Normal >/= 90 mL/min/1.73m2 Mildly decreased* 60 - 89 mL/min/1.73m2 Mildly to moderately decreased 45 - 59 mL/min/1.73m2 Moderately to severely decreased 30 - 44 mL/min/1.73m2 Severely decreased 15 - 29 mL/min/1.73m2 Kidney Failure < 15 mL/min/1.73m2 *Relative to young adult level Estimated glomerular filtration rate is determined by the 2020 CKD-EPI equation recommended by the National Kidney Foundation (A Unifying Approach to GFR Estimation: Recommendations of the NKF-ASK Task Force on Reassessing the Inclusion of Race in Diagnosing Kidney Disease, JASN 2020). The CKD-EPI equation should not be used for patients with unstable renal function and has not been validated in children and those over 70. Current interpretive data was last reviewed 2021. Testing performed by: [facility], [address] [place] [address]., [address] Blood 05/07/2025 8:07 AM CDT 05/07/2025 8:14 AM CDT Bacilio Sigala DO LAB BLOOD ORDERABLES Final R esult RAYSA [address] [facility] Department [place] [address] * Differential, auto (05/07/2025 8:07 AM CDT) Neutrophil abs 2.44 1.50 - 6.50 K/cumm Comment:Testing performed by : [address] [address] Imm gran abs 0.01 0.00 - 0.10 K/cumm RAYSA Comment:Testing performed by : [address] [address] Lymphocyte abs 1.55 0.80 - 3.30 K/cumm RAYSA Comment:Testing performed by : [address] [address] Monocyte abs 0.32 0.20 - 0.80 K/cumm RAYSA Comment:Testing performed by : [address] [address] Eosinophil abs 0.24 0.00 - 0.50 K/cumm RAYSA Comment:Testing performed by : [address] [address] Basophil abs 0.02 0.00 - 0.10 K/cumm RAYSA Comment:Testing performed by : [address] [address] Neutrophil pct 53.4 % RAYSA Comment: Interpretive Data Percent cell count reference ranges are not reported, since discordance with absolute values may lead to misinterpretation of CBC data. Current Interpretive Data was last revised on 2017. Testing performed by: [address] [address] Imm gran pct 0.2 % RAYSA Comment: Interpretive Data Percent cell count reference ranges are not reported, since discordance with absolute values may lead to misinterpretation of CBC data. Current Interpretive Data was last revised on 2017. Testing performed by: [address] [address] Lymphocyte pct 33.8 % RAYSA Comment: Interpretive Data Percent cell count reference ranges are not reported, since discordance with absolute values may lead to misinterpretation of CBC data. Current Interpretive Data was last revised on 2017. Testing performed by: [address] [address] Monocyte pct 7.0 % RAYSA Comment: Interpretive Data Percent cell count reference ranges are not reported, since discordance with absolute values may lead to misinterpretation of CBC data. Current Interpretive Data was last revised on 2017. Testing performed by: [address] [address] Eosinophil pct 5.2 % RAYSA Comment: Interpretive Data Percent cell count reference ranges are not reported, since discordance with absolute values may lead to misinterpretation of CBC data. Current Interpretive Data was last revised on 2017. Testing performed by: [address] [address] Basophil pct 0.4 % RAYSA Comment: Interpretive Data Percent cell count reference ranges are not reported, since discordance with absolute values may lead to misinterpretation of CBC data. Current Interpretive Data was last revised on 2017. Testing performed by: [address] [address] Blood 05/07/2025 8:07 AM CDT 05/07/2025 8:14 AM CDT us Bacilio Sigala DO LAB BLOOD ORDERABLES Final R esult [facility] [address] [facility] [place] [address] * (ABNORMAL) CBC with auto differential (05/07/2025 8:07 AM CDT) WBC 4.58 3.80 - 9.90 K/cumm Comment:Testing performed by : [address] [address] Hgb 13.3 13.0 - 17.5 g/dL RAYSA Comment:Testing performed by : [address] [address] Hct 39.5 38.9 - 50.3 % RAYSA Comment:Testing performed by : [address] [address] Plt 130(L) 150 - 400 K/cumm RAYSA Comment:Testing performed by : [address] [address] MPV 9.5 9.1 - 12.3 fL RAYSA Comment:Testing performed by : [address] [address] RBC 4.17(L) 4.30 - 5.80 M/cumm RAYSA Comment:Testing performed by : [address] [address] MCV 94.7 81.3 - 96.4 fL RAYSA Comment:Testing performed by : [address] [address] MCH 31.9 27.1 - 33.3 pg RAYSA Comment:Testing performed by : [address], [address] MCHC 33.7 32.3 - 35.7 g/dL RAYSA Comment:Testing performed by : [address], [address] RDW CV 14.6 11.1 - 14.9 % RAYSA Comment:Testing performed by : [address], [address] RDW SD 50.6(H) 35.7 - 48.1 fL RAYSA Comment:Testing performed by : [address] [address] NRBC abs 0.00 0.00 - 0.01 K/cumm RAYSA Comment:Testing performed by : [address] [address] ANC Prelim 2.44 1.50 - 6.50 K/cumm RAYSA Comment: Interpretive Data The rapid ANC is a preliminary automated count and may vary from the final ANC (Neut Abs) reported in the WBC differential that follows. Current interpretive data was last revised 2024. Testing performed by: [address], [address] Morphologic Screen Results confirmed by manual morphology review. RAYSA Comment:Testing performed by : [address] [address] Blood 05/07/2025 8:07 AM CDT 05/07/2025 8:14 AM CDT Bacilio Sigala DO LAB BLOOD ORDERABLES Edited Result - Final RAYSA [address] [facility] Department [place] [address] * Comprehensive metabolic panel (05/07/2025 8:07 AM CDT) Sodium 143 135 - 145 mmol/L Comment:Testing performed by : [address] [address] Potassium, pl 4.4 3.3 - 4.9 mmol/L RAYSA Comment:Testing performed by : [address] [address] Chloride 107 97 - 110 mmol/L RAYSA Comment:Testing performed by : [address] [address] CO2 27 22 - 32 mmol/L RAYSA Comment:Testing performed by : [address] [address] Anion gap 9 2 - 15 mmol/L RAYSA Comment:Testing performed by : [address] [address] BUN 18 6 - 25 mg/dL RAYSA Comment:Testing performed by : [address] [address] Creatinine 1.10 0.80 - 1.30 mg/dL RAYSA Comment:Testing performed by : [address] [address] Glucose 97 70 - 199 mg/dL RAYSA Comment: Interpretive Data Fasting glucose >/= 126 mg/dl is diagnostic for diabetes. Fasting is defined as no caloric intake for at least 8 hours. Fasting glucose between 100 mg/dl to 125 mg/dl is diagnostic of prediabetes. In a patient with classic symptoms of hyperglycemia or hyperglycemic crisis, a random glucose >/= 200 mg/dl is diagnostic for diabetes. In the absence of unequivocal hyperglycemia, results should be confirmed by repeat testing. The classification and Diagnosis of Diabetes Diabetes Care 202; 46: S19-S40. Current interpretive data was last revised 2022. Testing performed by: [address] [address] Calcium 9.2 8.5 - 10.3 mg/dL RAYSA Comment:Testing performed by : [address] [address] Bilirubin, total 1.1 0.1 - 1.2 mg/dL RAYSA Comment:Testing performed by : [address] [address] Protein, pl 6.7 6.5 - 8.5 g/dL RAYSA Comment:Testing performed by : [address] [address] Albumin 4.2 3.5 - 5.0 g/dL RAYSA Comment:Testing performed by : [address] [address] Alk phos 98 40 - 130 Units/L RAYSA Comment:Testing performed by : [address] [address] ALT 25 7 - 55 Units/L RAYSA Comment:Testing performed by : [address] [address] AST 36 10 - 50 Units/L RAYSA Comment:Testing performed by : [address] [address] Blood 05/07/2025 8:07 AM CDT 05/07/2025 8:14 AM CDT us Bacilio Sigala DO LAB BLOOD ORDERABLES Final R esult RAYSA JOYCE [address] [facility] [place] [address] * (ABNORMAL) Urinalysis reflex to microscopic and culture Urine, bladder (04/16/2025 12:42 PM CDT) Color, ur Yellow Yellow Comment:Testing performed by : [address] [address] Clarity, ur Clear Clear RAYSA Comment:Testing performed by : [address], [place]., [address] Specific gravity, ur 1.018 1.003 - 1.030 RAYSA Comment:Testing performed by : [address], [place]., [address] pH, urine 5.5 RAYSA Comment: Interpretive Data U rine pH is affected by diet, medications, systemic acid-base disturbances, and renal tubular function. pH may affect urinary stone formation. For example, urine pH below 6.0 may help reduce the tendency for calcium phosphate stones and pH greater than 6.0 may reduce the tendency for uric acid stone formation. Source: [facility] [employer] Current Interpretive Data was last revised on 2017 Testing performed by: [address] [address] Protein, ur ql Negative Negative RAYSA Comment:Testing performed by : [address] [address] Glucose, ur ql Negative Negative RAYSA Comment:Testing performed by : [address] [address] Ketones, ur Negative Negative RAYSA Comment:Testing performed by : [address] [address] Bilirubin, ur Negative Negative RAYSA Comment:Testing performed by : [address] [address] Blood, ur Negative Negative RAYSA Comment:Testing performed by : [address] [address] Urobilinogen, ur <2.0 <2.0 mg/dL RAYSA JOYCE Comment:Testing performed by : [address] [address] Nitrite, ur Negative Negative RAYSA Comment:Testing performed by : [address] [address] Leukocyte esterase, ur 4+(A) Negative RAYSA JOYCE Comment:Testing performed by : [address] [address] UA reflex comment Reflex to microscopic UA will be performed. RAYSA Comment:Testing performed by : [address] [address] Urine, bladder 04/16/2025 12 :42 PM CDT 04/16/2025 1:57 PM CDT Bacilio Sigala DO LAB MICROBIOLOGY - GENERAL O RDERABLES Final Result Performing Organization Address [facility] Co de Phone Number RAYSA [address] [employer] [place] [address] * (ABNORMAL) Urinalysis, microscopic only (04/16/2025 12:42 PM CDT) WBC, ur 21-50(A) 0 - 5 /HPF Comment:Testing performed by : [address] [address] RBC, ur 6-10(A) 0 - 2 /HPF RAYSA Comment:Testing performed by : [address] [address] Epithelial cells, squamous, ur 11-20(A) 0 - 5 /HPF RAYSA Comment:Testing performed by : [address] [address] Mucous, ur Present(A) RAYSA Comment:Testing performed by : [address] [address] Culture Reflex Comment Reflex to urine culture will be performed. RAYSA Comment:Testing performed by : [address] [address] Urine, bladder 04/16/2025 12 :42 PM CDT 04/16/2025 1:57 PM CDT Bacilio Sigala DO LAB URINE ORDERABLES Final R esult Performing Organization Address [facility] Co de Phone Number RAYSA [address] [employer] [place] [address] * Urine culture Urine, bladder (04/16/2025 12:42 PM CDT) Report Final Report: Less than 100,000 colonies/mL (clinically insignificant growth based on current clinical standards) Comment:Testing performed by : [facility], [address] [place] [address] Organism (CLINICALLY INSIGNIFICANT GROWTH RAYSA Urine, bladder 04/16/2025 12 :42 PM CDT 04/16/2025 6:14 PM CDT Narrative RAYSA - 04/17/2025 8:09 PM CDT Urine culture reflexed based upon urinalysis results. Testing performed by [facility] ([phone]) us Bacilio Sigala DO LAB MICROBIOLOGY - GENERAL O RDERABLES Final Result RAYSA [address] [facility] [place] [address] * eGFR (04/16/2025 10:41 AM CDT) eGFR 65 >=60 mL/min/1. 73 m2 Comment: Interpretive Data Reference Interval Normal >/= 90 mL/min/1.73m2 Mildly decreased* 60 - 89 mL/min/1.73m2 Mildly to moderately decreased 45 - 59 mL/min/1.73m2 Moderately to severely decreased 30 - 44 mL/min/1.73m2 Severely decreased 15 - 29 mL/min/1.73m2 Kidney Failure < 15 mL/min/1.73m2 *Relative to young adult level Estimated glomerular filtration rate is determined by the 2020 CKD-EPI equation recommended by the National Kidney Foundation (A Unifying Approach to GFR Estimation: Recommendations of the NKF-ASK Task Force on Reassessing the Inclusion of Race in Diagnosing Kidney Disease, JASN 2020). The CKD-EPI equation should not be used for patients with unstable renal function and has not been validated in children and those over 70. Current interpretive data was last reviewed 2021. Testing performed by: [facility], [address] [place] [address]., [address] Blood 04/16/2025 10:4 1 AM CDT 04/16/2025 10:49 AM CDT Sherin Cooper NP LAB BLOOD ORDERABLES Final Result [facility] [address] [facility] [place] [address] * Differential, auto (04/16/2025 10:41 AM CDT) Neutrophil abs 2.40 1.50 - 6.50 K/cumm Comment:Testing performed by : [address] [address] Imm gran abs 0.00 0.00 - 0.10 K/cumm RAYSA Comment:Testing performed by : [address] [address] Lymphocyte abs 1.39 0.80 - 3.30 K/cumm RAYSA Comment:Testing performed by : [address] [address] Monocyte abs 0.33 0.20 - 0.80 K/cumm RAYSA Comment:Testing performed by : [address] [address] Eosinophil abs 0.24 0.00 - 0.50 K/cumm RAYSA Comment:Testing performed by : [address] [address] Basophil abs 0.02 0.00 - 0.10 K/cumm RAYSA Comment:Testing performed by : [address] [address] Neutrophil pct 54.8 % RAYSA Comment: Interpretive Data Percent cell count reference ranges are not reported, since discordance with absolute values may lead to misinterpretation of CBC data. Current Interpretive Data was last revised on 2017. Testing performed by: [address] [address] Imm gran pct 0.0 % RAYSA Comment: Interpretive Data Percent cell count reference ranges are not reported, since discordance with absolute values may lead to misinterpretation of CBC data. Current Interpretive Data was last revised on 2017. Testing performed by: [address] [address] Lymphocyte pct 31.7 % [facility] Comment: Interpretive Data Percent cell count reference ranges are not reported, since discordance with absolute values may lead to misinterpretation of CBC data. Current Interpretive Data was last revised on 2017. Testing performed by: [address] [address] Monocyte pct 7.5 % [facility] Comment: Interpretive Data Percent cell count reference ranges are not reported, since discordance with absolute values may lead to misinterpretation of CBC data. Current Interpretive Data was last revised on 2017. Testing performed by: [address] [address] Eosinophil pct 5.5 % [facility] Comment: Interpretive Data Percent cell count reference ranges are not reported, since discordance with absolute values may lead to misinterpretation of CBC data. Current Interpretive Data was last revised on 2017. Testing performed by: [address] [address] Basophil pct 0.5 % [facility] Comment: Interpretive Data Percent cell count reference ranges are not reported, since discordance with absolute values may lead to misinterpretation of CBC data. Current Interpretive Data was last revised on 2017. Testing performed by: [address] [address] Blood 04/16/2025 10:4 1 AM CDT 04/16/2025 10:49 AM CDT us Sherin Cooper [employer]ACH[employer] LAB BLOOD ORDERABLES Final Result RAYSA JOYCE [address] [facility] Department of [place], [place] [id number] * (ABNORMAL) CBC with auto differential (04/16/2025 10:41 AM CDT) WBC 4.38 3.80 - 9.90 K/cumm Comment:Testing performed by : [address], [address] Hgb 13.4 13.0 - 17.5 g/dL RAYSA Comment:Testing performed by : [address], [address] Hct 39.7 38.9 - 50.3 % RAYSA Comment:Testing performed by : [address] [address] Plt 130(L) 150 - 400 K/cumm RAYSA Comment:Testing performed by : [address], [address] MPV 9.6 9.1 - 12.3 fL RAYSA Comment:Testing performed by : [address], [address] RBC 4.16(L) 4.30 - 5.80 M/cumm RAYSA Comment:Testing performed by : [address], [address] MCV 95.4 81.3 - 96.4 fL RAYSA Comment:Testing performed by : [address], [address] MCH 32.2 27.1 - 33.3 pg CERBRUNILDA Comment:Testing performed by : [address], [address] MCHC 33.8 32.3 - 35.7 g/dL RAYSA Comment:Testing performed by : [address], [address] RDW CV 15.3(H) 11.1 - 14.9 % RAYSA Comment:Testing performed by : [address], [address] RDW SD 53.7(H) 35.7 - 48.1 fL RAYSA Comment:Testing performed by : [address], [address] NRBC abs 0.00 0.00 - 0.01 K/cumm RAYSA Comment:Testing performed by : [address], [address] ANC Prelim 2.40 1.50 - 6.50 K/cumm RAYSA Comment: Interpretive Data The rapid ANC is a preliminary automated count and may vary from the final ANC (Neut Abs) reported in the WBC differential that follows. Current interpretive data was last revised 2024. Testing performed by: [address] [address] Blood 04/16/2025 10:4 1 AM CDT 04/16/2025 10:49 AM CDT Sherin Cooper PIN MACHINE OPERATOR LAB BLOOD ORDERABLES Final Result RAYSA [address] [facility] [place] [address] * Comprehensive metabolic panel (04/16/2025 10:41 AM CDT) Sodium 141 135 - 145 mmol/L Comment:Testing performed by : [address] [address] Potassium, pl 3.9 3.3 - 4.9 mmol/L RAYSA Comment:Testing performed by : [address] [address] Chloride 102 97 - 110 mmol/L RAYSA Comment:Testing performed by : [address] [address] CO2 27 22 - 32 mmol/L RAYSA Comment:Testing performed by : [address] [address] Anion gap 12 2 - 15 mmol/L RAYSA Comment:Testing performed by : [address] [address] BUN 13 6 - 25 mg/dL RAYSA Comment:Testing performed by : [address] [address] Creatinine 1.10 0.80 - 1.30 mg/dL RAYSA Comment:Testing performed by : [address] [address] Glucose 114 70 - 199 mg/dL RAYSA Comment: Interpretive Data Fasting glucose >/= 126 mg/dl is diagnostic for diabetes. Fasting is defined as no caloric intake for at least 8 hours. Fasting glucose between 100 mg/dl to 125 mg/dl is diagnostic of prediabetes. In a patient with classic symptoms of hyperglycemia or hyperglycemic crisis, a random glucose >/= 200 mg/dl is diagnostic for diabetes. In the absence of unequivocal hyperglycemia, results should be confirmed by repeat testing. The classification and Diagnosis of Diabetes Diabetes Care 202; 46: S19-S40. Current interpretive data was last revised 2022. Testing performed by: [address] [address] Calcium 8.9 8.5 - 10.3 mg/dL RAYSA Comment:Testing performed by : [address] [address] Bilirubin, total 1.2 0.1 - 1.2 mg/dL RAYSA Comment:Testing performed by : [address] [address] Protein, pl 6.6 6.5 - 8.5 g/dL RAYSA Comment:Testing performed by : [address] [address] Albumin 4.0 3.5 - 5.0 g/dL RAYSA Comment:Testing performed by : [address] [address] Alk phos 97 40 - 130 Units/L RAYSA Comment:Testing performed by : [address] [address] ALT 25 7 - 55 Units/L RAYSA Comment:Testing performed by : [address] [address] AST 37 10 - 50 Units/L RAYSA Comment:Testing performed by : [address] [address] Blood 04/16/2025 10:4 1 AM CDT 04/16/2025 10:49 AM CDT us Sherin Cooper NP LAB BLOOD ORDERABLES Final Result RAYSA [address] [facility] [place] [address] * CT Chest Abdomen Pelvis W Contrast (04/02/2025 10:51 AM CDT) Anatomical Region Laterality Modality Body N/A Computed Tomogra phy 04/25/2025 11:1 8 AM CDT Narrative 04/25/2025 11:24 AM CDT EXAM DESCRIPTION: CT CHEST ABDOMEN PELVIS W CONTRAST REASON FOR STUDY: assess for treatment response on immunotherapy; 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 Reconstructed coronal and sagittal MPR images reviewed. All images stored on PACS. Automated exposure control was used as a dose optimization technique for this examination. CONTRAST TYPE/DOSE: 91mL of IOVERSOL 350 MG IODINE/ML INTRAVENOUS SYRINGE injected via intravenous COMPARISON: 10/27/2024 FINDINGS: LUNGS: Clear. Trachea and major airways are patent. HEART/MEDIASTINUM/MANOLO: Moderate cardiomegaly. Coronary artery calcifications/stents. No enlarged lymph node. Thoracic inlet unremarkable other than right thyroid nodule. CHEST MSK: Unremarkable. CHEST WALL: Moderate multilevel disc disease. Healed sternotomy. LIVER/BILIARY: Mild hepatic steatosis. Biliary tree normal in caliber. GALLBLADDER: Normal. SPLEEN: Calcified granulomas. PANCREAS: Normal. ADRENAL GLANDS: Normal. KIDNEYS/URINARY TRACT: Bladder wall trabeculation. Kidneys and ureters unremarkable. GI: Stomach and small bowel appear normal colon and appendix unremarkable. OTHER ABDOMINAL/PELVIS: Heavy atherosclerotic arterial plaque. Vascular structures are normal in caliber. Large plaque in the right common femoral artery image 142/185 is likely flow-limiting. Similar plaque in the left common femoral artery image 139/185. MSK: Moderate disc disease and facet arthropathy. Hip and SI joint arthrosis. BODY WALL: Unremarkable. IMPRESSION: 1. Liver and spleen normal in volume. No acute abnormality identified. 2. Large atherosclerotic plaques in both common femoral arteries are likely flow limiting. THIS IS AN ELECTRONICALLY VERIFIED FINAL REPORT 04/25/2025 11:24 AM - Electronically signed by Franco Luther M.D. AR: MARC Report ID: [id number] Reading Location: [id number] Procedure Note Franco Luther MD - 04/25/2025 EXAM DESCRIPTION: CT CHEST ABDOMEN PELVIS W CONTRAST REASON FOR STUDY: assess for treatment response on immunotherapy; assessfor heaptosplenomegaly due to TCP assess for treatment response on immunotherapy; assess forheaptosplenomegaly due to TCP, Malignant neoplasm of urinary bladder, unspecified site (HCC) TECHNIQUE: CT scan of the chest, abdomen, and pelvis performed with intravenous and without oral contrast using helical scanning techniquewith dynamic intravenous contrast injection. Reconstructed coronal and sagittalMPR images reviewed. All images stored on PACS. Automated exposure control was used as a dose optimization technique for this examination. CONTRAST TYPE/DOSE: 91mL of IOVERSOL 350 MG IODINE/ML INTRAVENOUS SYRINGE injected via intravenous COMPARISON: 10/27/2024 FINDINGS: LUNGS: Clear. Trachea and major airways are patent. HEART/MEDIASTINUM/MANOLO: Moderate cardiomegaly. Coronary artery calcifications/stents. No enlarged lymph node. Thoracic inletunremarkable other than right thyroid nodule. CHEST MSK: Unremarkable. CHEST WALL: Moderate multilevel disc disease. Healed sternotomy. LIVER/BILIARY: Mild hepatic steatosis. Biliary tree normal in caliber. GALLBLADDER: Normal. SPLEEN: Calcified granulomas. PANCREAS: Normal. ADRENAL GLANDS: Normal. KIDNEYS/URINARY TRACT: Bladder wall trabeculation. Kidneys and ureters unremarkable. GI: Stomach and small bowel appear normal colon and appendixunremarkable. OTHER ABDOMINAL/PELVIS: Heavy atherosclerotic arterial plaque. Vascular structures are normal in caliber. Large plaque in the right commonfemoral artery image 142/185 is likely flow-limiting. Similar plaque in the left common femoral artery image 139/185. MSK: Moderate disc disease and facet arthropathy. Hip and SI joint arthrosis. BODY WALL: Unremarkable. IMPRESSION: 1. Liver and spleen normal in volume. No acute abnormality identified. 2. Large atherosclerotic plaques in both common femoral arteries arelikely flow limiting. THIS IS AN ELECTRONICALLY VERIFIED FINAL REPORT 04/25/2025 11:24 AM - Electronically signed by Franco Luther M.D. AR: MARC Report ID: [id number] Reading Location: [place] [address] Sherin Tubbs Allison PIN MACHINE OPERATOR IMG CT PROCEDURES Fi nal Result from Last [address] [facility] Advance Directives For more information, please contact: [phone] * Full Code (Latest Code Status on File) Date Activated Date Inactivated Comments 10/30/2024 9:46 AM 10/31/2024 9:17 PM * Full Code Date Activated Date Inactivated Comments 10/27/2024 9:21 PM 10/30/2024 9:46 AM Care Teams Curriculum Advisory Teacher Relationship Specialty Start Date End Date Polo Vasquez MD [address] [place] [address] PCP - General Emergency Medicine 08/14/24 [place] [address] [place] [address] Consulting Physician Urology 08/14/24 Bacilio Sigala DO [address] [place] [address] MEDICAL ONCOLOGY, [address] [address] Medical Oncologist/Golf Course Starter Hematology and Oncology 08/14/24
--- OUTSIDE RECORDS SUMMARY | 2025-07-02 15:21 | XMS_ITS | Encounter Summary ---
Author Organization [facility] Address [address] [place] [address] Care Team Providers Care Second Floor Operator Name Role Phone Unavailable Primary Care Provider Unavailabl e Encounter Details Date Type Department Care Team (Late st Contact Info) Description 07/01/2024 Lab Requisition [facility] - Pathology Lab [address] [place] [id number] Felix Mercado MD [address] [place] [address] Illness, unspecified Social History Tobacco Use Types Packs/Day Years Used Date Smoking Tobacco: Never Assessed Sex and Gender Information Value Date Recorded Sex Assigned at Not on file Legal Sex Male 3:39 PM CDT Gender Identity Not on file Sexual Orientation Not on file documented as of this encounter Plan of Treatment Not on file documented as of this encounter Procedures Procedure Name Priority Date/Time Associated Diagnosis Comments SLIDE PREP HISTOLOGY Routine 06/26/2024 1:08 PM CDT Illness, unspecified documented in this encounter Results * SLIDE PREP HISTOLOGY (06/26/2024 1:08 PM CDT) Client Specimen ID # [id number] 07/31/2024 10:00 AM [facility] LAB Number of Blocks Received 0 07/31/2024 10:00 AM [facility] Number of Slides 1 07/31/2024 10:00 AM [facility] Number of Control Slides 1 07/31/2024 10:00 AM [facility] Pathology/Cytolo gy SLIDE / Unknown 06/26/2024 1:08 PM CDT 07/01/2024 6:31 AM BEAN PICKER MACHINE OPERATOR us Felix Mercado MD LAB - PATHOLOGY/CYT OLOGY ORDERABLES Final Result Performing Organization Address City/State/[facility] Co de Phone Number [facility] PATHOLOGY LAB [address] [phone] documented in this encounter Visit Diagnoses Diagnosis Illness, unspecified documented in this encounter
--- OUTSIDE RECORDS SUMMARY | 2025-07-02 15:21 | XMS_ITS | Encounter Summary ---
Author Organization [facility] Healthcare Address [address] [place] [address] Care Team Providers Care Ampoule Washing Machine Operator Name Role Phone Polo Vasquez MD Primary Care Provide r Peter Martin MD Unavailable [phone] Bacilio Sigala DO Unavailable [phone] Encounter Details Date Type Department Care Team (Late st Contact Info) Description 07/02/2025 Telephone [facility] Medical Group Cardiology [address] [place] [address] Polo Moreira MD [address] [place] [address] Social History Tobacco Use Types Packs/Day Years Used Date Smoking Tobacco: Former Smokeless Tobacco: Never Alcohol Use Standard Drinks/Week Comments Yes 14 (1 standard drink = 0.6 oz pu re alcohol) [facility] Utilities Answer Date Recorded In the past 12 months has [employer], [employer], [employer], or water [employer] threatened to shut off services in your [...] answer 10/28/2024 How often do you attend [facility] or mandae[facility] services? Patient unable to answer 10/28/2024 Do you belong to any clubs o r organizations such as baptist groups, unions, fraternal or athletic groups, or [...] any time in the past 12 m [facility], were you homeless or living in a retirement (including now)? 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 Scheduled pt on 07/15 at 0830 at [facility]. Thank you. Contact [phone] ATIONS PROCESSOR * Telephone Encounter - Princess Georges - 07/02/2025 11:19 AM CST Patient was in the hospital on 07/01 having issues with his pulse, ranged from 70-115. When they went in to the ED they found that the pacemaker needed adjusted. They went ahead and adjusted, but states that the patient will need to be seen sooner. The soonest appt available is for 08/[address] Patient is requesting a call back to talk about the pacemaker and see if anyone can get him in sooner. Please advise. Thank you. Contact : [phone] ATIONS PROCESSOR documented in this encounter Plan of Treatment Not on file documented as of this encounter Visit Diagnoses Not on filedocumented in this encounter Care Teams Ampoule Washing Machine Operator Relationship Specialty Start Date End Date Polo Vasquez MD [address] [place] [address] PCP - General Emergency Medicine 08/14/24 [place] [address] [place] [address] Consulting Physician Urology 08/14/24 Bacilio Sigala DO [address] [place] [address] MEDICAL ONCOLOGY, [address] [place] [address] Medical Oncologist/Chief Lock Operator Hematology and Oncology 08/14/24 documented as of this encounter
--- OUTSIDE RECORDS SUMMARY | 2025-07-02 15:21 | XMS_ITS ---
Author Organization [facility] [address] [facility] [address] Address [address] [place] [address] Care Team Providers Care Power Shear Operator Name Role Phone Polo Vasquez MD Primary Care Provide r Peter Martin MD Unavailable [phone] Bacilio Sigala DO Unavailable [phone] Active Problems Problem Noted Date Diagnosed Date S/P angioplasty with stent 10/31/2024 History of bladder cancer 10/29/2024 Coronary artery disease invo lving coronary bypass graft of [place] heart without angina pectoris 10/29/2024 Syncope and [...] home monitoring. 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 Current Treatment and Therapy Plans Enfortumab Vedotin (D1, D8) cycles 1 & 2 / Pembrolizumab (D1) 21 Day Cycles - Urothelial* Plan Start Date:09/17/2024 Plan Provider:Bacilio Sigala DO Linked Problems Malignant neoplasm of urinar y bladder, unspecified site (HCC) Treatment Medications Current Day (Day 1 , Cycle 12 - Planned for 07/09/2025) enfortumab vedotin-ejfv (PAD CEV)enfortumab vedotin-ejfv (PADCEV) IVPB in 100 mlpembrolizumab (KEYTRUDA)pembrolizumab (KEYTRUDA) IVPB in 100 mL pembrolizumab (KEYTRUDA) 200 mg in sodium chloride 0.9% 100 mL IV Maintenance Therapy Plan* Plan Start Date:04/16/2025 Plan Provider:Bacilio Sigala DO Linked Problems Malignant neoplasm of urinar y bladder, unspecified site (HCC) Treatment Medications No medications scheduled. Past Treatment and Therapy Plans Line Care Plan Name Start Date Discontinue Date Treatment Medications Discontinue Reason Plan Provider IV Maintenance Therapy Plan 10/16/2024 04/10/2025 No medications scheduled. Therapy Complete Bacilio Sigala DO Lifetime Dose Tracking * Chemical Lifetime Dose Automatic Entry Manual Entr y Fluoro Time 24.5 minutes 0 minutes 24.5 minutes Air kerma at the reference point (Ka,r) 4,282 mGy 0 mGy 4,282 mGy DAP 240 Gy-cm2 0 Gy-cm2 240 Gy-cm2
--- OUTSIDE RECORDS SUMMARY | 2025-07-02 15:21 | XMS_ITS | Encounter Summary ---
Author Organization [facility] Address [address] [facility] [place] [address] Care Team Providers Care Screw Machine Tool Setter Name Role Phone Unavailable Primary Care Provider Unavailabl e Encounter Details Date Type Department Care Team (Late st Contact Info) Description 01/21/2020 Lab Requisition [facility] DermPath Lab [address] [facility] [place] [id number] Alejandrina Zuniga MD [address] [facility] [address] [place] [address] Social History Tobacco Use Types Packs/Day Years [...] Procedure Name Priority Date/Time Associated Diagnosis Comments DERMATOPATH TECHNICAL REPORT Routine 01/20/2020 12:00 AM CDT documented in this encounter Results * DERMATOPATH TECHNICAL REPORT (01/20/2020 12:00 AM CDT) Case Report Dermatopathology Report Case: [id number] Authorizing Provider: Alejandrina Zuniga MD Collected: 01/20/2020 12:00 AM Ordering Location: [facility] DermPath Lab Received: 01/21/2020 11:50 AM Pathologist: Radha Kolb MD Specimen: Skin, right axilla 0 1:35 PM CDT DERMATOPATHOLOGY LABORATORY Clinical History R/O seborrheic keratosis irritated. 0 1:35 PM CDT DERMATOPATHOLOGY LABORATORY Gross Description Specimen A: Received is one formalin filled container labeled with the patient's name and designated right axilla. The specimen consists of a shave measuring [id number], bisected. Jar 0. [facility] Dermatopathology Laboratory performed the technical component only. 0 1:35 PM CDT DERMATOPATHOLOGY LABORATORY Embedded Images 0 1:35 PM CDT DERMATOPATHOLOGY LABORATORY DISCLAIMER An external and internal positive and negative controls are appropriate for the histochemical, immunohistochemical and immunofluorescence stain(s) in this case (if any), except where stated explicitly. The performance characteristics of the stain(s) cited in this report were developed and its performance characteristic determined by the Dermatopathology Laboratory at [facility], directed by Dr. Rosemary Mueller. These tests need not be, and therefore are not, approved by the [place] Food and Drug Administration. The tests are used for clinical purposes. 0 1:35 PM CDT DERMATOPATHOLOGY LABORATORY at 1335 CDT Pathology/Cytolog y TISSUE SPECIMEN FROM SKIN / Unknown 01/20/2020 01/21/2020 11:50 AM CDT us Alejandrina Zuniga MD LAB - PATHOLOGY/CYTOLOGY OR DERABLES Final Result DERMATOPATHOLOGY LABORATORY [facility] - Department of Dermatology [facility]/[address] [address], [facility] [phone] documented in this encounter Visit Diagnoses Not on filedocumented in this encounter
--- OUTSIDE RECORDS SUMMARY | 2025-07-02 15:21 | XMS_ITS | Clinical Summary ---
Author Organization [facility] Address [address] [place] [address] Care Team Providers Care Supervisor Lump Room Name Role Phone Unavailable Primary Care Provider Unavailabl e Source Comments [facility],non-owned Affiliates and Associated Physician Practices is amultiple site organization consisting of ambulatory clinics and hospital sitesin [place], [place], [place] and [place]. This disclosure is being madepursuant to the Care Everywhere program and may not contain all information available regarding this patient. Last updated 18.[facility] [place]irt Social History Tobacco Use Types Packs/Day Years Used Date Smoking Tobacco: Never Assessed Sex and Gender Information Value Date Recorded Sex Assigned at Not on file Legal Sex Male 3:39 PM CDT Gender Identity Not on file Sexual Orientation Not on file Plan of Treatment Health Maintenance Due Date Last Done Comments MEDICARE AWV 12 MONTHS 1936 DTAP/TDAP/TD VACCINES (1 - Tdap) 1955 PNEUMOCOCCAL VACCINE 50+ (1 of 1 - PCV) 1986 ZOSTER VACCINE (1 of 2) 1986 Respiratory Syncytial Virus (RSV) Vaccine Pt: or over 60 yrs (1 - 1-dose 75+ series) 2011 DEPRESSION SCREENING 08/27/2024 COVID-19 VACCINE (1 - 2023-2 5 season) 2025 INFLUENZA VACCINE (#1) 2025 HEPATITIS B VACCINE Aged Out No longe r eligible based on patient's age to complete this topic HIB VACCINE Aged Out No longer eligi ble based on patient's age to complete this topic HPV VACCINE Aged Out No longer eligi ble based on patient's age to complete this topic MENINGOCOCCAL (Group B) VACC INE SHARED DECISION-MAKING Aged Out No longer eligibl e based on patient's age to complete this topic MENINGOCOCCAL GROUPS A/C/Y/W VACCINE Aged Out No longer eligible b ased on patient's age to complete this topic Insurance [facility] MEDICARE [facility] MEDICARE SELF PAY NO INSURANCE Member Subscriber Plan / Payer (Ef fective for All Dates) Name:Gómez Rose Member ID:Not on file Relation to Subscriber:Not on file Name:GÓMEZ ROSE Subscriber ID:Not on file (Home) Address: [address] [place] [id number] Payer ID:Not on file Group ID:Not on file Type:Self Pay Address: [place], [place] [facility] MEDICARE SELF PAY NO INSURANCE Member Subscriber Plan / Payer (Ef fective for All Dates) Name:Gómez Rose Member ID:Not on file Relation to Subscriber:Not on file Name:GÓMEZ ROSE Subscriber ID:Not on file Address: [address] [place], [place] [id number] Payer ID:Not on file Group ID:Not on file Type:Self Pay Address: [place], [place] [id number] MEDICARE SELF PAY NO INSURANCE Member Subscriber Plan / Payer (Ef fective for All Dates) Name:Gómez Rose Member ID:Not on file Relation to Subscriber:Not on file Name:GÓMEZ ROSE Subscriber ID:Not on file Address: [address] [place], [place] [id number] Payer ID:Not on file Group ID:Not on file Type:Self Pay Address: [place], [place] [facility] MEDICARE SELF PAY NO INSURANCE Member Subscriber Plan / Payer (Ef fective for All Dates) Name:Gómez Rose Member ID:Not on file Relation to Subscriber:Not on file Name:GÓMEZ ROSE Subscriber ID:Not on file Address: [address] [place] [id number] Payer ID:Not on file Group ID:Not on file Type:Self Pay Address: [place], [place]
--- OUTSIDE RECORDS SUMMARY | 2025-07-02 15:28 | XMS_ITS ---
Author Name Maribell GHOTRA, MRS. Faye npal Address [address] [facility] [place] [address] Phone [phone] Organization [facility] ([facility]) Care Team Providers Care Doctor Of Optometry Name Role Phone Mir Reyna Unavailable [phone] Polo Moreira Unavailable [phone] NICHOLE GRIFFIN Unavailable [phone] POLO TOMLINSON Unavailable [phone] Reason for Referral Not Available Allergies, adverse [...] 8 mg Tab TAKE 1 TABLET BY [facility] EVERY 8 HOURS NEEDED FOR NAUSEA 2024-09-04 No Data Available Clopidogrel Bisulfate 75 mg Tab TAKE 1 TABLET BY MOUTH ONCE DAILY 2024-10-30 No Data Available pyRIDostigmine Ida 60 mg Tab TAKE 1 TABLET BY [...] least 30 minutes total time on encounter [facility] [place] 01/27/2025 Malignant neoplasm o f bladder, unspecifiedAthscl heart disease of [place] coronary artery w/o ang pctrsHyperlipidemia, unspecifiedUnsteadiness on feetPresence of cardiac pacemakerBody mass index (bmi) 27.0-27.9, adult Home visit for evaluation and management of new patient requiring medically appropriate examination and low level of medical decision making. If using time, at least 30 minutes total time on encounter [facility] 01/27/2025 Malignant neoplasm o f bladder, unspecified Home visit for evaluation and management of new patient requiring medically appropriate examination and low level of medical decision making. If using time, at least 30 minutes total time on encounter [facility] 01/27/2025 Malignant neoplasm o f bladder, [...] least 30 minutes total time on encounter [id number] 2025-01-27 No Data Available No Data Availa [...]
== END 2025-07-01 21:15 | disposition home or self-care (01) ==
PROVIDERS: Emergency Provider Registered Nurse; PCP Emergency Medicine
DX: I95.9 Hypotension, unspecified (principal); N39.0 Urinary tract infection, site not specified; Z45.018 Encounter for adjustment and management of other part of cardiac pacemaker; I25.10 Atherosclerotic heart disease of native coronary artery without angina pectoris; I10 Essential (primary) hypertension; I25.2 Old myocardial infarction; E78.5 Hyperlipidemia, unspecified; E55.9 Vitamin D deficiency, unspecified; N40.0 Benign prostatic hyperplasia without lower urinary tract symptoms; M19.90 Unspecified osteoarthritis, unspecified site; Z66 Do not resuscitate; Z95.1 Presence of aortocoronary bypass graft; Z87.11 Personal history of peptic ulcer disease; Z86.0100 Personal history of colon polyps, unspecified; Z87.891 Personal history of nicotine dependence; Z89.022 Acquired absence of left finger(s); Z89.021 Acquired absence of right finger(s); Z79.899 Other long term (current) drug therapy; Z79.82 Long term (current) use of aspirin
CPT/HCPCS: 36415; 71046; 80053; 81001; 83880; 84484; 85025; 85610; 85730; 87077; 87086; 87186; 93005; 96360; 96361; 99284; A9270; J7030